=== PATIENT | female | born 1955 | race Caucasian/White ===

== ENCOUNTER 2024-06-15 14:11 | Outpatient (OUT) | payer MEDICARE, OTHER, SELFPAY ==
--- NOTE | 2024-06-15 14:19 | ECG_ITS ---
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
[2024-06-15 14:46] LABS: Basophils Percent Auto 0.4 % (0.2-2.0); Eosinophils Percent Auto 0.5 % (0.9-7.0); Hematocrit 45.8 % (36.0-48.0); Hemoglobin 14.9 g/dL (12.0-16.0); Immature Granulocytes Abs Auto 0.03 10^3/uL (0.00-0.03); Immature Granulocytes Pct Auto 0.4 % (0.0-0.5); Lymphocytes Absolute Auto 2.6 10^3/uL (1.2-3.8); Lymphocytes Percent Auto 32.4 % (20.5-60.0); Mean Corpuscular HGB Conc 32.5 g/dL (29.9-35.2); Mean Corpuscular Hemoglobin 29.3 pg (26.7-34.0); Mean Corpuscular Volume 90.2 fL (81.0-99.0); Mean Platelet Volume 9.4 fL (9.5-13.5); Monocytes Absolute Auto 0.6 10^3/uL (0.3-0.8); Monocytes Percent Auto 7.2 % (1.7-12.0); Neutrophils Absolute Auto 4.7 10^3/uL (1.4-6.5); Neutrophils Percent Auto 59.1 % (43.0-75.0); Platelet Count 294 10^3/uL (150-450); Red Blood Count 5.08 10^6/uL (4.20-5.40); Red Cell Distribution Width 13.5 % (11.0-15.0); White Blood Count 7.9 10^3/uL (4.0-11.0)
[2024-06-15 14:58] LABS: Anion Gap 14.5; Calcium 9.2 mg/dL (8.5-10.1); Carbon Dioxide 26.6 mmol/L (21.0-32.0); Chloride 104 mmol/L (98-107); Estimated GFR (African America >60 (>=60 mL/min/1.73m^2); Estimated GFR (Non-African Ame >60 (>=60 mL/min/1.73m^2); Glucose 96 mg/dL (74-106); Potassium 4.1 mmol/L (3.5-5.1); Sodium 141 mmol/L (136-145)
[2024-06-15 15:02] LABS: INR 0.98; Partial Thromboplastin Time 34.4 sec (22.3-36.2); Prothrombin Time 10.4 sec (9.0-11.6)
== END 2024-06-15 14:12 | disposition home or self-care (01) ==
LOC: PST 14:16
PROVIDERS: PCP Family Medicine; Visit Provider Urology
DX: Z01.810 Encounter for preprocedural cardiovascular examination (principal); Z01.812 Encounter for preprocedural laboratory examination; N20.0 Calculus of kidney
CPT/HCPCS: 80048; 85025; 85610; 85730; 93005

== ENCOUNTER 2024-06-16 11:29 | Day surgery (SDC) | payer MEDICARE, OTHER, SELFPAY ==
[2024-06-15 14:34] VITALS: BP 151/84; PULSE 73; TEMP 36.4; O2SAT 96; BMI 33.3
[2024-06-16] VITALS (10 sets, daily range): BP systolic 122–166; BP diastolic 68–91; PULSE 77–90; TEMP 36.2; O2SAT 90–97; BMI 33.1
--- NOTE | 2024-06-16 | FL_ITS ---
[address] [address] Patient Name: ARELY BEY MRN: [id number] date: 1955 Sex: F Assigned Patient Location: SURGOUT Current Patient Location: Accession/Order Number: [id number] Exam Date: 06/16/2024 13:00 Report Date: 06/20/2024 14:39 At the request of: DEBRA BROWN Procedure: FL fluoroscopy <1hr NON-READ EXAM: FL fluoroscopy <1hr NON-READ HISTORY: TECHNIQUE: FINDINGS: Please see Operative Report. Electronically authenticated by: RADIOLOGIST NO Date: 06/20/2024 14:39
[2024-06-16] MEDS: 0.9 % SODIUM CHLORIDE 500 ML 50 ML IV (12:05)
[2024-06-16] MEDS: CEFAZOLIN SODIUM 2 GM/50 ML D5W PREMIX IV (12:58)
--- NOTE | 2024-06-16 14:06 | PM.URSON ---
Urology Surgery Operative Note Operative Note Procedure Date: 06/16/24 Time Out Performed: yes Pre-op Diagnosis: Left renal calculus Post-op Diagnosis: same as pre-op Procedures performed: 1. Cystoscopy. 2. Left ureteroscopy. 3. Left pyeloscopy. 4. Thulium laser lithotripsy of extremely hard large left renal pelvis stone 5. Placement of 6 [place] variable length left ureteral stent Anesthesia: General-LMA Primary Surgeon: Ron Bell Complications: None Estimated blood loss (mL): 5 Findings: Extremely hard large left renal pelvis calculus Specimens: None Drains: 6 [place] variable length left ureteral stent Indications for Procedures: This lady has a large left renal pelvis stone which has been causing obstruction and pain. She now presents for cystoscopy left stent placement and possible definitive ureteroscopic laser lithotripsy. She has signed an informed consent after all risks were explained. Detailed description of Procedure: The patient was brought to the operating room and placed on the operating room table in the supine position. SCDs were placed on the lower extremities and turned on and functioning during the entire case. Timeout was done by all parties in the room. We all agreed upon the patient's identification and the planned procedures for this patient. Genn. anesthesia was then administered. The patient was then repositioned into the modified dorsal lithotomy position. All pressure points were satisfactorily padded. Genitalia were sterilely prepped and draped in usual fashion. I started by passing a 22 [place] Olympus cystoscope per urethra and into the bladder. The urethra was extremely stenosed. It was difficult to get the scope in. Careful panendoscopy in the bladder revealed no evidence of any tumors or stones. I then passed a Glidewire through the scope and up the left ureter into the kidney. The wire was beyond the stone. I then remove the scope and then passed a 10/12 ureteral access sheath over the wire up the ureter to L5. I then removed the access stylette and wire. I then passed a flexible ureteroscope through the access sheath and up the ureter. I then entered the renal pelvis and encountered this large stone. A 270 Angstrom laser fiber was passed through the scope and made contact with the stone. I began doing laser lithotripsy with the thulium laser at 6 W continuously then up to 10 W then 15 W. It was on the dusting mode. It began to fragment very slowly. This was an extremely hard stone. I continued dusting until the majority of the stone was dusted. I had to go into one of the midpole calyces to where a chunk fell. This was also dusted. Upon completion, this large hard stone was totally dusted. The scope was then removed. I then passed a Glidewire through the sheath into the kidney and removed the access sheath. Cystoscope was passed over the wire into the bladder and a 6 [place] variable length stent was passed over the wire up to the kidney. The wire was removed and there were good curls in the kidney and in the bladder. The bladder was drained of its contents and the scope was then removed. She was then transferred to a [facility] bed and wheeled to PACU in stable condition.
[2024-06-16] MEDS: SOLIFENACIN SUCCINATE 10 MG TABLET PO (15:03)
== END 2024-06-16 15:45 | disposition home or self-care (01) ==
PROVIDERS: PCP Family Medicine; Visit Provider Urology
PROC: (CPT 52356; principal; 2024-06-16 13:05)
DX: N20.0 Calculus of kidney (principal); R10.9 Unspecified abdominal pain; R35.1 Nocturia; R32 Unspecified urinary incontinence; Z87.891 Personal history of nicotine dependence; R82.994 Hypercalciuria; R82.90 Unspecified abnormal findings in urine; R31.9 Hematuria, unspecified
CPT/HCPCS: 52356; 36415; 76000; J0690; J1100; J1171; J2250; J2405; J2704; J3010

== ENCOUNTER 2024-06-18 14:38 | Emergency (ER) | payer MEDICARE, OTHER, SELFPAY ==
--- OUTSIDE RECORDS SUMMARY | 2024-06-18 14:57 | XMS_ITS | CCD ---
Author Organization [facility] Care Team Providers Care Senior Materials Analyst Name Role Phone Renetta Maradiaga Primary Care Provider RENETTA MARADIAGA Primary Care Unavailable PITO GROVES Attending Unavailab le PITO GROVES Admitting Unavailab Renetta Walton Primary Care Provider TENNILLE DICKSON Referring Unavailable PITO GROVES Attending Unavailab RENETTA Walton Primary Care Unavailable PITO GROVES Attending Unavailab RENETTA Walton Primary Care Unavailable PITO GROVES Attending Unavailab RENETTA Walton Primary Care Unavailable RENETTA MARADIAGA Primary Care Unavailable PITO GROVES Referring Unavailab RENETTA Walton Primary Care Unavailable Sarah Rivera Attending Unavailable Debra BELL Attending Unavailable Debra BELL Attending Unavailable Yaya CAMERON Primary Care Physician [phone] JULIANN Maradiaga Primary Care Provider MD Debra Bell Attending Provider [phone] Debra Bell Attending Unavailable Debra Bell Admitting Unavailable Renetta Maradiaga Primary Care Unavailable Debra Bell Admitting Unavailable Renetta Maradiaga Primary Care Unavailable Debra Bell Attending Unavailable Debra Bell Admitting Unavailable Debra Bell Attending Unavailable Renetta Maradiaga Primary Care Unavailable Renetta Maradiaga Primary Care Unavailable Don Johnson Attending Unavailable Don Johnson Admitting Unavailable Shelia Cameron DO Primary Care Provider Shelia Cameron DO Unavailable RENETTA MARADIAGA Attending Unavailable SHELIA CAMERON Referring Unavailable TENNILLE DICKSON Attending Unavailable TENNILLE DICKSON Referring Unavailable TENNILLE DICKSON Referring Unavailable DEBRA BELL Referring Unavailable SHELIA CAMERON Attending Unavailable SHELIA CAMERON Referring Unavailable SHELIA CAMERON Referring Unavailable Debra BELL Attending Unavailable STEPHANIE, Debra Banerjee Attending Unavailable BELL, Debra Banerjee Attending Unavailable BELL, Debra Banerjee Attending Unavailable Sarah Rivera Attending Unavailable BELL, Debra Banerjee Attending Unavailable BELL, Debra Banerjee Attending Unavailable Allergies Allergy Classification Reported Allergen(s) Allergy Type Date of Onset Reaction(s) Facility (1 source) No Known Medication Allergies; Translations: [No Known Medication Allergies] Propensity to adverse reactions (disorder) [facility] Repository Medications Current Medications Medication Drug Class(es) Dates Sig (Normalized) Sig (Original) atorvastatin 20 mg oral tablet (2 sources) HMG-CoA Reductase Inhibitor Start: 05-31-2018 take 20 mg by mouth once daily Atorvastatin Active 20 MG PO Daily May 31, 2018 12:00am cephalexin 500 mg oral capsule (2 sources) Cephalosporin Antibacterial Start: 10-31-2023 take 500 mg by mouth twice daily Cephalexin Active 500 MG PO Twice daily 14 October 31, 2023 1:00am dicyclomine hydrochloride 20 mg oral tablet (3 sources) Anticholinergic Start: 06-03-2024 take 1 tablet by mouth four times daily as needed dicyclomine (Bentyl) 20 MG tablet Indications: Abdominal discomfort Take 1 tablet (20 mg) by mouth 4 (four) times a day as needed (abdominal discomfort or cramps) 40 tablet 1 06/03/2024 Active Start: 06-03-2024 take 1 tablet by tanner four times daily as needed dicyclomine (Bentyl) 20 MG tablet Indications: Abdominal discomfort Take 1 tablet (20 mg) by mouth 4 (four) times a day as needed (abdominal discomfort or cramps) 40 tablet 1 06/03/2024 Active docusate sodium 100 mg oral capsule (2 sources) Start: 01-30-2023 End: 03-01-2023 take 1 capsule by mouth twice daily docusate sodium (COLACE) 100 mg capsule Take 1 capsule by mouth twice daily. 60 capsule 0 01/30/2023 03/01/2023 Active Comment on above: Take 1 capsule by mo [facility] twice daily. famotidine 40 mg oral tablet (3 sources) Histamine-2 Receptor Antagonist Start: 06-03-2024 take 1 tablet by mouth once daily famotidine (Pepcid) 40 MG tablet Indications: Gastroesophageal Reflux Disease Take 1 tablet (40 mg) by mouth Daily 30 tablet 2 06/03/2024 Active Start: 06-03-2024 take 1 tablet by tanner th once daily famotidine (Pepcid) 40 MG tablet Indications: Gastroesophageal Reflux Disease Take 1 tablet (40 mg) by mouth Daily 30 tablet 2 06/03/2024 Active hydroCHLOROthiazide 12.5 mg oral capsule (2 sources) Thiazide Diuretic Start: 06-15-2024 End: 06-10-2025 take 1 capsule by mouth once daily hydrochlorothiazide 12.5 mg Cap 12.5 mg = 1 cap(s), Oral, Daily, X 30 day(s), # 30 cap(s), Refills(s) 11, Pharmacy: [id number], 170, cm, 06/15/24 10:44:00 EDT, Height/Length Dosing, 97, kg, 06/15/24 10:44:00 EDT, Weight Dosing Start Date: 06/15/24 Stop Date: 06/10/25 Status: Ordered Multi Vitamin+ (5 sources) Start: 03-09-2024 Multi Vitamin+ Refill(s) 0 Start Date: 03/09/24 Status: Ordered naproxen 500 mg oral tablet (2 sources) Nonsteroidal Anti-inflammator y Drug Start: 10-31-2023 take 1 tablet by mouth twice daily Naproxen (Naprosyn) 500 mg tablet Active 500 MG PO Twice daily 10 October 31, 2023 1:00am ondansetron 4 mg oral tablet (2 sources) Serotonin-3 Receptor Antagonist Start: 10-31-2023 take 4 mg by mouth every eight hours Ondansetron Hcl Active 4 MG PO Every 8 hours 12 01October 31, 2023 1:00am oxyCODONE hydrochloride 5 mg oral tablet (3 sources) Opioid Agonist Start: 10-31-2023 take 5 mg by mouth twice daily Oxycodone Active 5 MG PO Twice daily 10 October 31, 2023 Start: 01-30-2023 End: 02-04-2023 take 1 tablet by mouth every eight hours as needed for pain oxyCODONE IR (ROXICODONE) 5 mg immediate release tablet Indications: Postoperative state Take 1 tablet by mouth every 8 hours as needed for pain for up to 5 days. 10 tablet 0 01/30/2023 02/04/2023 Active Comment on above: Take 1 tablet by tanner th every 8 hours as needed for pain for up to 5 days. tamsulosin hydrochloride 0.4 mg oral capsule (2 sources) alpha-Adrenergic Ariana Start: 10-31-2023 take 1 capsule by mouth once daily Tamsulosin (Flomax) 0.4 mg capsule Active 0.4 MG PO Daily October 31, 2023 1:00am Completed/Discontinued Medications Medication Drug Class(es) Dates Sig (Normalized) Sig (Original) acetaminophen 500 mg oral tablet (3 sources) Start: 01-30-2023 take 2 tablets by mouth every six hours as needed acetaminophen (TYLENOL EXTRA STRENGTH) 500 mg tablet Take 2 tablets by mouth every 6 hours as needed for pain. 30 tablet 0 01/30/2023 Active Comment on above: Take 2 tablets by mo uth every 6 hours as needed for pain. ciprofloxacin 500 mg oral tablet (1 source) Quinolone Antimicrobial Start: 03-28-2024 take 1 tablet by mouth once daily Cipro 500 mg Tab 500 mg = 1 tab(s), Oral, Daily, Take 1 tablet the day before the procedure and 1 tablet after the procedure, # 2 tab(s), Refills(s) 0, Pharmacy: [id number], 170, cm, 03/09/24 10:41:00 EDT, Height/Length Dosing, 97, kg, 03/09/24 10:41:00 EDT, Weight Dosing Start Date: 03/28/24 Status: Ordered gabapentin 100 mg oral capsule (2 sources) Anti-epileptic Agent Start: 01-22-2018 End: 05-31-2018 take 100 mg by mouth three times daily Gabapentin Discontinued 100 MG PO Three times daily January 22, 2018 12:00am May 31, 2018 8:47am ibuprofen 600 mg oral tablet (3 sources) Nonsteroidal Anti-inflammatory Drug Start: 01-30-2023 take 1 tablet by mouth every eight hours as needed ibuprofen (MOTRIN) 600 mg tablet Take 1 tablet by mouth every 8 hours as needed for pain. 30 tablet 0 01/30/2023 Active Comment on above: Take 1 tablet by tanner th every 8 hours as needed for pain. MULTIVITAMIN ORAL (1 source) MULTIVITAMIN ORA L Take by mouth. 0 Active Comment on above: Take by mouth. polyethylene glycol 3350 [id number] mg / potassium chloride 2970 mg / sodium bicarbonate 6740 mg / sodium chloride 5860 mg / sodium sulfate 90426 mg powder for oral solution (1 source) Osmotic Laxative Start: 12-10-2022 GAVILYTE-G 236-22.74-6.74 -5.86 gram suspension DRINK 8OZ EVERY 15 MINUTES BY MOUTH AT 4PM THE DAY PRIOR TO COLONOSCOPY 0 12/10/2022 Active Comment on above: DRINK 8OZ EVERY 15 M INUTES BY MOUTH AT 4PM THE DAY PRIOR TO COLONOSCOPY psyllium husk (METAMUCIL ORAL) (1 source) psyllium husk (METAMUCIL ORAL) Take by mouth. 0 Active Comment on above: Take by mouth. Problems Active Problems Problem Classification Problem Date Documented Date Episodic/Chronic Abdominal pain (5 sources) Abdominal discomfort; Translations: [Unspecified abdominal pain] Onset: 06-15-2024 06-03-2024 Episodic Anxiety disorders (2 sources) Acute stress disorder; Translations: [Acute stress reaction] 06-03-2024 Chronic Calculus of urinary tract (20 sources) Kidney stone; Translations: [Calculus of kidney] Onset: 01-19-2023 01-19-2023 Episodic Diverticulosis and diverticulitis (6 sources) Diverticulitis 11-09-2023 Chronic Esophageal disorders (2 sources) Gastro-esophageal reflux disease with esophagitis; Translations: [Gastroesophageal reflux disease with esophagitis without hemorrhage] 06-03-2024 Chronic Genitourinary symptoms and ill-defined conditions (1 source) Mixed incontinence; Translations: [Mixed incontinence] Onset: 03-09-2024 Chronic Genitourinary symptoms and ill-defined conditions (10 sources) Microscopic hematuria; Translations: [Asymptomatic microscopic hematuria] Onset: 03-09-2024 Episodic Other diseases of bladder and urethra (1 source) Male urethral stricture; Translations: [Unspecified urethral stricture, male, unspecified site] Onset: 03-29-2024 Episodic Other diseases of bladder and urethra (6 sources) Urethral stricture; Translations: [Unspecified urethral stricture, male, unspecified site] Onset: 06-03-2024 03-29-2024 Episodic Other female genital disorders (7 sources) Atypical endometrial hyperplasia; 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]] Onset: 01-30-2023 01-30-2023 Chronic Other female genital disorders (2 sources) 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]; Translations: [Endometrial hyperplasia with atypia] Onset: 01-14-2023 Chronic Other female genital disorders (1 source) Endometrial hyperplasia; Translations: [Endometrial hyperplasia, unspecified] Chronic Other inflammatory condition of skin (4 sources) Psoriasis; Translations: [Psoriasis, unspecified] Onset: 06-03-2024 06-03-2024 Chronic Other nutritional; endocrine; and metabolic disorders (3 sources) Obesity; Translations: [Other obesity due to excess calories] Onset: 01-19-2023 01-19-2023 Chronic Other nutritional; endocrine; and metabolic disorders (1 source) Obesity caused by energy imbalance; Translations: [Other obesity due to excess calories] Onset: 01-19-2023 01-19-2023 Chronic Other screening for suspected conditions (not mental disorders or infectious disease) (2 sources) Hormone increase 06-15-2024 Episodic Prolapse of female genital organs (4 sources) Uterovaginal prolapse; Translations: [Uterovaginal prolapse, unspecified] Onset: 03-29-2024 Chronic Residual codes; unclassified (1 source) Other specified postprocedural states; Translations: [Postoperative state] Onset: 01-30-2023 Episodic Residual codes; unclassified (2 sources) Postoperative state; Translations: [Other specified postprocedural states] Episodic Screening and history of mental health and substance abuse codes (7 sources) H/O: Disorder; Translations: [Personal history of nicotine dependence] Onset: 03-29-2024 Episodic Unclassified (3 sources) Asymptomatic microscopic hematuria 03-29-2024 Past or Other Problems Problem Classification Problem Date Documented Da te Episodic/Chronic Mood disorders (4 sources) Mood disorders Onset: 12-02-2023 12-02-2023 Results Test Name Value Interpretation Reference Range Facility ALL CBC WITH AUTO DIFFon BASOPHILS ABSOLUTE AUTO 0 [facility] Basophils/100 WBC (Bld) 0.4 % 0.2 - 2.0 % [facility] Eosinophils/100 WBC (Bld) 0.5 % Low 0.9 - 7.0 % [facility] Erythrocyte distribution width (RBC) [Ratio] 13.5 % 11.0 - 15.0 % [facility] Hematocrit (Bld) [Volume fraction] 45.8 % 36.0 - 48.0 % [facility] Hemoglobin (Bld) [Mass/Vol] 14.9 g/dL 12.0 - 16.0 g/dL [facility] IMMATURE GRANULOCYTES ABS AUTO 0.03 [facility] Immature granulocytes/100 WBC (Bld) 0.4 % 0.0 - 0.5 % [facility] Interpretation and review of laboratory results Abnormal [facility] LYMPHOCYTES ABSOLUTE AUTO 2.6 [facility] Lymphocytes/100 WBC (Bld) 32.4 % 20.5 - 60.0 % [facility] MCH (RBC) [Entitic mass] 29.3 pg 26.7 - 34.0 pg [facility] MCHC (RBC) [Mass/Vol] 32.5 g/dL 29.9 - 35.2 g/dL [facility] MCV (RBC) [Entitic vol] 90.2 fL 81.0 - 99.0 fL [facility] MONOCYTES ABSOLUTE AUTO 0.6 [facility] Monocytes/100 WBC (Bld) 7.2 % 1.7 - 12.0 % [facility] NEUTROPHILS ABSOLUTE AUTO 4.7 [facility] Neutrophils/100 WBC (Bld) 59.1 % 43.0 - 75.0 % [facility] Platelet mean volume (Bld) [Entitic vol] 9.4 fL Low 9.5 - 13.5 fL [facility] TBH EO # 0 [facility]H PLT [address] [facility] RBC 5.08 [facility] TB WBC 7.9 [facility] Ambulatory Visit Summaryon 1 Ambulatory Visit Summary Ambulatory Visit Summary ARELY MANUEL :1955 Visit Date:06/15/2024 Ambulatory Visit Instructions Your Diagnosis Kidney stone Hypercalciuria Abnormal urinalysis Flank pain Your Care Team Attending Physician - STEPHANIE OLIVAS, Debra Banerjee Primary Care Physician - Yaya CAMERON DO This Is Your Medications List hydrochlorothiazide (hydrochlorothiazide 12.5 mg Cap) Contact prescribing physician if questions or concerns multivitamin (Multi Vitamin+) Procedures Performed Cystoscopy (03/29/2024), Colonoscopy, Hysterectomy. Discharge Vitals Heart Rate (Peripheral) 80 Respiratory Rate 16 Blood Pressure 142/88 Height 170 cm Height 67 in Weight 97 kg Weight 213.4 lb BMI 33.56 What to do next You Need to Schedule the Following Appointments Follow Up with STEPHANIE OLIVAS, ANABELLA Mata When: Where: [facility] [address] [place] [address]- Medications What How Much When Instructions New hydrochlorothiazide (hydrochlorothiazide 12.5 mg Cap) 1 Capsules By Mouth Every day Duration: 30 Days Refills: 11 Pickup at [facility] Unchanged multivitamin (Multi Vitamin+) Contact prescribing physician if questions or concerns Pharmacy Information [id number]: [address] [place] [phone] Allergies No Known Medication Allergies Problems Ongoing - Any problem that you are currently receiving treatment for. Abnormal urinalysis Asymptomatic microscopic hematuria Cystocele with prolapse Diverticulitis Elevated parathyroid hormone Flank pain Former smoker History of kidney stones Hypercalciuria Kidney stone Urethral stricture Patient Survey You may receive a survey via text or e-mail asking about your office visit. Please share your experience with us by completing your survey. We appreciate your feedback and thank you for choosing us for your care. Education Materials Dietary Guidelines to Help Prevent Kidney Stones Kidney stones are deposits of minerals and salts that form inside your kidneys. Your risk of developing kidney stones may be greater depending on your diet, your lifestyle, the medicines you take, and whether you have certain medical conditions. Most people can lower their risks of developing kidney stones by following these dietary guidelines. Your dietitian may give you more specific instructions depending on your overall health and the type of kidney stones you tend to develop. What are tips for following this plan? Reading food labels ? Choose foods with no salt added or low-salt labels. Limit your salt (sodium) intake to less than 1,500 mg a day. ? Choose foods with calcium for each meal and snack. Try to eat about 300 mg of calcium at each meal. Foods that contain 200?500 mg of calcium a serving include: ? 8 oz (237 mL) of milk, rjsfted-bfcwnavqhbfi-m airy milk, and calcium-fortifiedfruit juice. Calcium-fortified means that calcium has been added to these drinks. ? 8 oz (237 mL) of kefir, yogurt, and soy yogurt. ? 4 oz (114 g) of tofu. ? 1 oz (28 g) of cheese. ? 1 cup (150 g) of dried figs. ? 1 cup (91 g) of cooked broccoli. ? One 3 oz (85 g) can of sardines or mackerel. Most people need 1,000?1,500 mg of calcium a day. Talk to your dietitian about how much calcium is recommended for you. Shopping ? Buy plenty of fresh fruits and vegetables. Most people do not need to avoid fruits and vegetables, even if these foods contain nutrients that may contribute to kidney stones. ? When shopping for convenience foods, choose: ? Whole pieces of fruit. ? Pre-made salads with dressing on the side. ? Low-fat fruit and yogurt smoothies. ? Avoid buying frozen meals or prepared deli foods. These can be high in sodium. ? Look for foods with live cultures, such as yogurt and kefir. ? Choose high-fiber grains, such as whole-wheat breads, oat bran, and wheat cereals. Cooking ? Do not add salt to food when cooking. Place a salt shaker on the table and allow each person to add their own salt to taste. ? Use vegetable protein, such as beans, textured vegetable protein (TVP), or tofu, instead of meat in pasta, casseroles, and soups. Meal planning ? Eat less salt, if told by your dietitian. To do this: ? Avoid eating processed or pre-made food. ? Avoid eating fast food. ? Eat less animal protein, including cheese, meat, poultry, or fish, if told by your dietitian. To do this: ? Limit the number of times you have meat, poultry, fish, or cheese each week. Eat a diet free of meat at least 2 days a week. ? Eat only one serving each day of meat, poultry, fish, or seafood. ? When you prepare animal proteins, cut pieces into small portion sizes. For most meat and fish, one serving is about the size of the palm of your hand. ? Eat at least five servings of fresh fruits and veg (more content not included)... Normal [facility] Ambulatory Visit Summary Ambulatory Visit Summary ARELY MANUEL :1955 Visit Date:06/15/2024 Ambulatory Visit Instructions Your Diagnosis Kidney stone Hypercalciuria Abnormal urinalysis Flank pain Your Care Team Attending Physician - Debra BELL MD Primary Care Physician - Yaya CAMERON DO This Is Your Medications List Contact prescribing physician if questions or concerns multivitamin (Multi Vitamin+) Procedures Performed Cystoscopy (03/29/2024), Colonoscopy, Hysterectomy. Discharge Vitals Heart Rate (Peripheral) 80 Respiratory Rate 16 Blood Pressure 142/88 Height 170 cm Height 67 in Weight 97 kg Weight 213.4 lb BMI 33.56 What to do next You Need to Schedule the Following Appointments Follow Up with Debra BELL MD, URL When: Where: [facility] [address] [place] [address]- Medications What When Instructions Unchanged multivitamin (Multi Vitamin+) Contact prescribing physician if questions or concerns Allergies No Known Medication Allergies Problems Ongoing - Any problem that you are currently receiving treatment for. Abnormal urinalysis Asymptomatic microscopic hematuria Cystocele with prolapse Diverticulitis Elevated parathyroid hormone Flank pain Former smoker History of kidney stones Hypercalciuria Kidney stone Urethral stricture Patient Survey You may receive a survey via text or e-mail asking about your office visit. Please share your experience with us by completing your survey. We appreciate your feedback and thank you for choosing us for your care. Education Materials Dietary Guidelines to Help Prevent Kidney Stones Kidney stones are deposits of minerals and salts that form inside your kidneys. Your risk of developing kidney stones may be greater depending on your diet, your lifestyle, the medicines you take, and whether you have certain medical conditions. Most people can lower their risks of developing kidney stones by following these dietary guidelines. Your dietitian may give you more specific instructions depending on your overall health and the type of kidney stones you tend to develop. What are tips for following this plan? Reading food labels ? Choose foods with no salt added or low-salt labels. Limit your salt (sodium) intake to less than 1,500 mg a day. ? Choose foods with calcium for each meal and snack. Try to eat about 300 mg of calcium at each meal. Foods that contain 200?500 mg of calcium a serving include: ? 8 oz (237 mL) of milk, oaxwycs-pydjlgfojyju-r airy milk, and calcium-fortifiedfruit juice. Calcium-fortified means that calcium has been added to these drinks. ? 8 oz (237 mL) of kefir, yogurt, and soy yogurt. ? 4 oz (114 g) of tofu. ? 1 oz (28 g) of cheese. ? 1 cup (150 g) of dried figs. ? 1 cup (91 g) of cooked broccoli. ? One 3 oz (85 g) can of sardines or mackerel. Most people need 1,000?1,500 mg of calcium a day. Talk to your dietitian about how much calcium is recommended for you. Shopping ? Buy plenty of fresh fruits and vegetables. Most people do not need to avoid fruits and vegetables, even if these foods contain nutrients that may contribute to kidney stones. ? When shopping for convenience foods, choose: ? Whole pieces of fruit. ? Pre-made salads with dressing on the side. ? Low-fat fruit and yogurt smoothies. ? Avoid buying frozen meals or prepared deli foods. These can be high in sodium. ? Look for foods with live cultures, such as yogurt and kefir. ? Choose high-fiber grains, such as whole-wheat breads, oat bran, and wheat cereals. Cooking ? Do not add salt to food when cooking. Place a salt shaker on the table and allow each person to add their own salt to taste. ? Use vegetable protein, such as beans, textured vegetable protein (TVP), or tofu, instead of meat in pasta, casseroles, and soups. Meal planning ? Eat less salt, if told by your dietitian. To do this: ? Avoid eating processed or pre-made food. ? Avoid eating fast food. ? Eat less animal protein, including cheese, meat, poultry, or fish, if told by your dietitian. To do this: ? Limit the number of times you have meat, poultry, fish, or cheese each week. Eat a diet free of meat at least 2 days a week. ? Eat only one serving each day of meat, poultry, fish, or seafood. ? When you prepare animal proteins, cut pieces into small portion sizes. For most meat and fish, one serving is about the size of the palm of your hand. ? Eat at least five servings of fresh fruits and vegetables each day. To do this: ? Keep fruits and vegetables on hand for snacks. ? Eat one piece of fruit or a handful of berries with breakfast. ? Have a salad and fruit at lunch. ? Have two kinds of vegetables at dinner. ? You may be told to limit foods that are high in a substance called oxalate. These in (more content not included)... Normal [facility] Urology Office/Clinic Noteon 06-15-2024 Urology Office/Clinic Note Urology Office/Clinic Note Chief Complaint Follow up HPI Staff Follow up to [place] [place] Previous DX: asymptomatic microscopic hematuria, cystocele w/prolapse, HX of kidney stones, urethral stricture. Dysuria: denies pain or burning Incomplete bladder emptying: denies Hematuria: denies visible blood Frequency: moderate intermittent Urgency: denies Nocturia: 1x Stream: denies hesitancy, denies weak stream Leaking: yes Post void dripping: denies Wearing pads/ Depends: denies Urge incontinence: yes Stress incontinence: denies Incontinence without Sensory Awareness: denies Abdominal pain: lower abdomen pain Flank pain: bilateral flank pain Sexual complaints: denies History of Present Illness Tests reviewed: UA, met workup, CT I have reviewed the previous health record information and history for this patient from Dr. Bell. I have reviewed and verified the staff HPI to be accurate for this encounter. Review of Systems PHQ Score Initial Depression Screen Score: 0 SCORE ROS - Provider Constitutional: denies weight loss, denies hot flashes. Eyes: denies eye problems. Gastrointestinal: denies nausea, denies vomiting. Cardiovascular: denies chest pain or angina. Integumentary: no dryness Musculoskeletal: denies musculoskeletal symptoms. ENMT: denies otolaryngeal symptoms. Respiratory: no shortness of breath. Heme/Lymph: denies easy bleeding tendency, denies easy bruising tendency. Psychiatric: no confusion, no anxiety. Genitourinary: See HPI. Physical Exam Vitals & Measurements HR: 80(Peripheral) RR: 16 BP: 142/88 HT: 67 in HT: 170 cm WT: 97 kg WT: 213.4 lb BMI: 33.56 General Appearance: alert, no distress, well nourished, well developed female. Assessment/Plan 1. Kidney stone (N20.0: Calculus of kidney) CT AP w/o con 10/31/23 - 4 mm obstructing L ureteral stone. Additional 6 mm nonobstructing stone in the L kidney. R kidney is unremarkable. KUB 11/09/23 - L ureteral stone was not visualized, may have passed. Continued L renal 6 mm stone present. KUB 03/07/24 - unable to view image but impression reports no urinary tract calculi identified. CT AP wo con 06/09/24 - 10 x 6 mm stone L renal pelvis with mild prominence of the L renal pelvis wo dilation of the calyces. No other distinct urinary tract calculi. No R hydro. Reviewed imaging with pt. Discussed surgical intervention options including ESWL if visible on x-ray (less invasive, lower stone free rate) and ureteroscopy/laser litho with possible stent placement (more invasive, higher stone free rate). Risks and benefits of each discussed. Passed smaller stone in October. Discussed surgical intervention options including ESWL if visible on x-ray (less invasive, lower stone free rate) and ureteroscopy/laser litho with possible stent placement (more invasive, higher stone free rate). Risks and benefits of each discussed. Offered to add pt onto surgery schedule tomorrow for stent placement which will relieve her L sided pain. No F/S/C. Pt elects to proceed with stent placement. Will schedule L stent placement. The procedural risks, benefits, details, and treatment alternatives have been discussed with the patient. These include bleeding, infection, inability to break or retrieve all of the stone, injury to the ureter (the tube which connects the kidney to the bladder), injury to the kidney scarring of the ureter, and need for repeat procedures, among others. Full informed consent has been obtained. Will order General anesthesia. 2. Hypercalciuria (R82.994: Hypercalciuria) Metabolic workup 05/20/24 - Volume 500 cc. U24 Ca 337 H. PTH 112.3 H but serum Ca is wnl. Reviewed metabolic workup with pt. Recommended pt to increase fluid intake to ten to twelve 16 oz bottles a day, preferably water, clear pop, and sugar free lemonade. -Drastically increase fluid intake. -Start HCTZ 12.5 mg qd. SEs discussed. Rx sent to [facility]. -Electrolyte panel in one month after starting med (recall placed). -Repeat metabolic workup in 8-10 mos. 3. Abnormal urinalysis (R82.90: Unspecified abnormal findings in urine) UA shows large blood and small leuks. Likely from #1, will monitor for resolution after #1 is resolved. 4. Flank pain (R10.9: Unspecified abdominal pain) Bilateral. L sided pain attributed to stone in L renal pelvis (see #1). Follow-up With When Contact Information Debra BELL MD, [facility] [address], [place] [address]- Additional Instructions: schedule L stent placement Patient Education Dietary Guidelines to Help Prevent Kidney Stones I, Keerthi Duran, personally scribed for Dr. Bell on 06/15/2024 11:49:50. . Documentation recorded by the scribe, Keerthi Duran, accurately reflects the services(s) I performed and decisions made by me. Authenticated by Dr. Bell on 06/15/2024 11:55:19. (more content not included)... Normal [facility] Comment on above: Result Comment: Elec tronically Signed By: Debra BELL MD\.br\Date and Time Signed: 06/15/24 11:55 EDT\.br\Electronically Co-Signed By: Keerthi Duran\.br\Date and Time Co-Signed: 06/15/24 11:[address] ABDOMEN PELVIS WO IV CONT RASTon 06-09-2024 CT ABDOMEN PELVIS WO IV CONTRAST EXAMINATION: CT ABDOMEN PELVIS WO IV CONTRAST HISTORY: Hematuria. History of kidney stones. TECHNIQUE: Non-IV contrast imaging of the abdomen and pelvis was performed using standard technique, scanning from just above the dome of the diaphragm to the symphysis pubis. Unenhanced imaging is limited for the evaluation of some intra-abdominal and pelvic pathology. All CT scans at this facility use dose modulation, iterative reconstruction, and/or weight based dosing when appropriate to reduce radiation dose to as low as reasonably achievable. COMPARISON: CT 12/29/2022. RESULT: Abdomen / Pelvis: Liver: Diffuse hepatic steatosis. No suspicious liver lesion. Biliary: Gallbladder unremarkable. Pancreas: Unremarkable. Spleen: No splenomegaly. Adrenals: No mass. Kidneys: 10 x 6 mm calculus in the left renal pelvis with mild prominence of the left renal pelvis without dilation of the calyces (pelviectasis). No other distinct urinary tract calculi. No right hydronephrosis. No suspicious lesions of the unenhanced kidneys. GI Tract: Small hiatal hernia. No bowel dilation. Diverticulosis without evidence for acute diverticulitis. Appendix unremarkable. Lymph Nodes: No lymphadenopathy. Mesentery/peritoneum/r etroperitoneum: Mild ill-defined mesenteric stranding, chronic, and unchanged from prior. No loculated collection. Vasculature: Mild arterial atherosclerotic disease without aneurysm. Pelvis: No significant free fluid. Hysterectomy. Bladder decompressed. Bones/Soft Tissues: No acute osseous findings. Degenerative changes. Lower thorax: Unremarkable. IMPRESSION: 10 mm calculus left renal pelvis with pelviectasis. ELECTRONICALLY SIGNED BY: Tarik Vera MD Normal Not Available 24 Hr Urine Uric Acidon 05-02 Uric Acid, 24 Hr Urine 300.0 Normal 142.3-713.2 [facility] Comment on above: Order Comment: URINE VOLUME (MILLILTERS): 500 Result Comment: Perf ormed at: - [facility] [place] [id number] Library Historian: Kam Tierney PhD, Phone: [phone] Performed By: #### C UU, ADDONUAPLUS #### [address] Urine Uric Acid 60.0 mg/dL Normal Not Estab. [facility] Comment on above: Order Comment: URINE VOLUME (MILLILTERS): 500 Performed By: #### C UU, ADDONUAPLUS #### [address] 24 hour urine sodium measure ment (moles/time)Ordered By: Debra Bell on 05-20-2024 Sodium (24H U) [Moles/Time] 53 mmol/24 40-[address] [facility] [address] biopsyOrdered By: Debra Bell on 05-20-2024 CT biopsy 24 Hours [facility] Calcium, 24Hr Urineon 2023 Calcium, Urine 67.4 mg/dL Normal Not Estab. [facility] Comment on above: Order Comment: URINE VOLUME (MILLILTERS): 500 Result Comment: Resu lts confirmed on dilution. Performed By: #### C UU, ADDONUAPLUS #### [address] Calcium, Urine 24 Hr 337 High 0-320 [facility] Comment on above: Order Comment: URINE VOLUME (MILLILTERS): 500 Performed By: #### C UU, ADDONUAPLUS #### [address] Citric Acid, Urine, 24 Houro n 05-20-2024 Citric Acid, Urine 1434 mg/L Normal Undefined [facility] Comment on above: Order Comment: URINE VOLUME (MILLILTERS): 500 Result Comment: Re sults verified by repeat testing This test was developed and its performance characteristics determined by [facility]. It has not been cleared or approved by the Food and Drug Administration. Performed By: #### C UU, ADDONUAPLUS #### [address] Citric Acid, Urine, 24HR 717 Normal 320-1240 [facility] Comment on above: Order Comment: URINE VOLUME (MILLILTERS): 500 Result Comment: Perf ormed at: - [facility] [address] [id number] Library Historian: Ezekiel Mack MD, Phone: [phone] PERFORMED BY: [place] [address] PATHOLOGIST GARBAGE PICK UP WORKER OPAL RUSS M.D. Performed By: #### C UU, ADDONUAPLUS #### [address] John Time and Vol 24 hr uron 05-20-2024 Total Volume, Urine 500 Normal [facility] Comment on above: Order Comment: URINE COLLECTION TIME (HRS): 24 URINE VOLUME (MILLILTERS): 500 Result Comment: PERF ORMED BY: [place] [address] PATHOLOGIST GARBAGE PICK UP WORKER OPAL RUSS M.D. Performed By: #### C UU, ADDONUAPLUS #### [address] Urine Collection Time 24 Normal [facility] Comment on above: Order Comment: URINE COLLECTION TIME (HRS): 24 URINE VOLUME (MILLILTERS): 500 Performed By: #### C UU, ADDONUAPLUS #### [address] Creatinine [Mass/volume] in UrineOrdered By: Debra Bell on 05-20-2024 Creatinine (U) [Mass/Vol] 250.00 mg/dL [facility] Comment on above: No reference range e stablished Creatinine, 24 Hr Urineon Creatinine 24 Hour, Urine 1.25 g/24_hr Normal 0.80-1.89 [facility] Comment on above: Order Comment: URINE COLLECTION TIME (HRS): 24 URINE VOLUME (MILLILTERS): 500 Performed By: #### U RASHEED 24HRU, CITRIC UR, MAG 24HRU, PHOS 24HRU, U24 CA #### [facility] , #### CREA24, U24 NA, COL T V #### [place] [address] [place] Creatinine, Urine 250.00 mg/dL Normal [facility] Comment on above: Order Comment: URINE COLLECTION TIME (HRS): 24 URINE VOLUME (MILLILTERS): 500 Result Comment: No r eference range established Performed By: #### U RASHEED 24HRU, CITRIC UR, MAG 24HRU, PHOS 24HRU, U24 CA #### [facility] , #### CREA24, U24 NA, COL T V #### [place] [address] [place] Magnesium, Urine 24Hron 05-02 Magnesium, 24Hr Urine 104.0 Normal 12.0-293.0 [facility] Comment on above: Order Comment: URINE VOLUME (MILLILTERS): 500 Performed By: #### C UU, ADDONUAPLUS #### [place] [address] [place] Magnesium, Urine 20.8 mg/dL Normal Not Estab. [facility] Comment on above: Order Comment: URINE VOLUME (MILLILTERS): 500 Performed By: #### C UU, ADDONUAPLUS #### [facility] [address] [place] [address] No Panel InformationOrdered By: Debra Bell on 05-20-2024 Urine Creatinine 24 Hour 1.25 g/24 hr 0.80-1.89 [facility] Phosphorus, 24Hr Urineon Phosphorous, Urine 158.9 mg/dL Normal Not Estab. [facility] Comment on above: Order Comment: URINE VOLUME (MILLILTERS): 500 Performed By: #### C CrystalUKIARAONUAPLUS #### [address] Phosphorus, Urine 24Hr 795 Normal 261-1078 [facility] Comment on above: Order Comment: URINE VOLUME (MILLILTERS): 500 Performed By: #### C KIARA VARGASONUAPLUS #### [address] Sodium [Moles/volume] in Uri neOrdered By: Debra Bell on 05-20-2024 Sodium (U) [Moles/Vol] 106.0 mmol/L Normal [facility] Comment on above: No reference range e stablished Order Comment: URINE COLLECTION TIME (HRS): 24 URINE VOLUME (MILLILTERS): 500 Result Comment: No r eference range established Performed By: #### U RASHEED 24HRU, CITRIC UR, MAG 24HRU, PHOS 24HRU, U24 CA #### [facility] , #### CREA24, U24 NA, COL T V #### [facility] [address] [place] [address] [place] Sodium, 24 Hr Urineon 2023 Sodium 24 Hour Urine 53 Normal 40-220 [facility] Comment on above: Order Comment: URINE COLLECTION TIME (HRS): 24 URINE VOLUME (MILLILTERS): 500 Performed By: #### U RASHEED 24HRU, CITRIC UR, MAG 24HRU, PHOS 24HRU, U24 CA #### [facility] , #### CREA24, U24 NA, COL T V #### [facility] [address] [place] [address] Urine volume measurementOrde red By: Debra Bell on 05-20-2024 Specimen volume (U) 500 ml [facility] Calcium [Mass/volume] in Ser um or PlasmaOrdered By: Debra Bell on 05-16-2024 Calcium [Mass/Vol] 8.8 mg/dL Normal 8.6-10.3 [facility] Comment on above: Performed By: #### C UU, ADDONUAPLUS #### [facility] [address] [place] [address] Carbon dioxide, total [Moles /volume] in Serum or PlasmaOrdered By: Debra Bell on 05-16-2024 CO2 [Moles/Vol] 26.6 mmol/L Normal 21.0-31.0 [facility] Comment on above: Performed By: #### C UU, ADDONUAPLUS #### [facility] [address] [place] [address] Chloride [Moles/volume] in S july or PlasmaOrdered By: Debra Bell on 05-16-2024 Chloride [Moles/Vol] 106 mmol/L Normal 98-107 [facility] Comment on above: Performed By: #### C UU, ADDONUAPLUS #### [facility] [address] [place] [address] Creatinineon 05-16-2024 GFR/1.73 sq M.predicted MDRD (S/P/Bld) [Vol rate/Area] mL/min/{1.73_m2} Normal [facility] Comment on above: Performed By: #### C UU, ADDONUAPLUS #### [facility] [address] [place] [address] Creatinine [Mass/volume] in Serum or PlasmaOrdered By: Debra Bell on 05-16-2024 Creatinine [Mass/Vol] 0.79 mg/dL Normal 0.60-1.20 [facility] Comment on above: Performed By: #### C UU, ADDONUAPLUS #### [facility] [address] [place] [address] No Panel InformationOrdered By: Debra Bell on 05-16-2024 Estimated GFR (CKD-EPI) > 60.0 mL/Min [facility] Creatinine Clearance (Chem N/A [facility] Parathyrin.intact [Mass/volu me] in Serum or PlasmaOrdered By: Debra Bell on 05-16-2024 Parathyrin.intact [Mass/Vol] 112.3 pg/mL High [facility] Parathyroid Hormone Intacton 05-16-2024 Parathyroid Hormone Intact 112.3 pg/mL High [facility] Comment on above: Result Comment: PERF ORMED BY: [facility] [address] [place] [address] PATHOLOGIST GARBAGE PICK UP WORKER OPAL RUSS M.D. Performed By: #### B UN, PTH, CA, LYTES, URIC, CREAT ####[facility] [id number] Potassium [Moles/volume] in Serum or PlasmaOrdered By: Debra Bell on 05-16-2024 Potassium [Moles/Vol] 4.3 mmol/L Normal 3.5-5.1 [facility] Comment on above: Performed By: #### C UU ADDONUAPLUS #### [facility] [address] [place] [address] Serum or plasma anion gap de terminationOrdered By: Debra Bell on 05-16-2024 Anion gap [Moles/Vol] 10.7 mmol/L Normal 6.0-15.0 [facility] Comment on above: Performed By: #### C UU, ADDONUAPLUS #### [facility] [address] [place] [address] [place] Sodium [Moles/volume] in Ser um or PlasmaOrdered By: Debra Bell on 05-16-2024 Sodium [Moles/Vol] 139 mmol/L Normal 136-145 [facility] Comment on above: Performed By: #### C UU, ADDONUAPLUS #### [facility] [address] [place] [address] [place] Urate [Mass/volume] in Serum or PlasmaOrdered By: Debra Bell on 05-16-2024 Urate [Mass/Vol] 6.6 mg/dL Normal 2.3-6.6 [facility] Comment on above: Result Comment: PERF ORMED BY: [facility] [address] [place] [address] PATHOLOGIST GARBAGE PICK UP WORKER OPAL RUSS M.D. Performed By: #### B UN, PTH, CA, LYTES, URIC, CREAT ####[facility] [id number] Urea nitrogen [Mass/volume] in Serum or PlasmaOrdered By: Debra eBll on 05-16-2024 Urea nitrogen [Mass/Vol] 12 mg/dL Normal 7-25 [facility] Comment on above: Performed By: #### C UU, ADDONUAPLUS #### [facility] [address] Urology Office/Clinic Noteon 03-29-2024 Urology Office/Clinic Note Urology Office/Clinic Note Chief Complaint Pt is here for cystoscopy HPI Staff AG pt here for cysto due to AMH. Abx taken. Negative cytology 03/09/24. History of Present Illness Tests reviewed: reviewed I have reviewed the previous health record information and history for this patient from Dr. Bell. I have reviewed and verified the staff HPI to be accurate for this encounter. Review of Systems PHQ Score Initial Depression Screen Score: 0 SCORE ROS - Provider Constitutional: denies weight loss, denies hot flashes. Eyes: denies eye problems. Gastrointestinal: denies nausea, denies vomiting. Cardiovascular: denies chest pain or angina. Integumentary: no dryness Musculoskeletal: denies musculoskeletal symptoms. ENMT: denies otolaryngeal symptoms. Respiratory: no shortness of breath. Heme/Lymph: denies easy bleeding tendency, denies easy bruising tendency. Psychiatric: no confusion, no anxiety. Genitourinary: See HPI. Physical Exam Vitals & Measurements T: 37 ?C(Temporal Artery) HR: 71(Peripheral) RR: 16 BP: 125/84 HT: 67 in HT: 170 cm WT: 97 kg WT: 213.4 lb BMI: 33.56 General Appearance: alert , no acute distress, well nourished, well developed female. Genitourinary: bladder nonpalpable, no flank pain. Procedure Operative Information Anesthesia Type: Local Procedure: Local Cystoscopy Complications: None Surgical risks, benefits, details of the procedure have been explained to the patient. Full informed consent has been obtained. Intraoperative Information Prepped: Patient is brought back to the endoscopy suite. Patient is placed in modified dorso/lithotomy position. Patient prepped in the usual fashion with Betadine solution. 2% Xylocaine Jelly is placed per Urethra. After waiting several minutes, the Cystoscope is introduced. The Urethra is: Normal The Bladder: _ No tumors or stones, Trabeculated: Severe (3) The Ureteral orifices: Show efflux of clear urine Specimens Removed: None No BRAD, grade 1 bladder prolapse, no A.V. Removal: Cystoscope is removed. The patient tolerated it well. Postoperative Information Patient is discharged home with antibiotic coverage. Follow up arranged. Assessment/Plan Last seen by AG. 1. Asymptomatic microscopic hematuria (R31.21: Asymptomatic microscopic hematuria) CT AP wo con 10/31/23 - Neg for upper tract abnormalities (besides renal stones). UA 03/09/24 - small blood, trace leuks [1]. Cytology 03/09/24 neg. Pt had IO cysto today wo complications. Cysto neg today. Hematuria workup complete and neg for malignancy. 2. Former smoker (Z87.891: Personal history of nicotine dependence) history of smoking and quit about 6 years ago. 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 Pt denies family history of kidney or bladder cancer. [1] 3. Urethral stricture (N35.919: Unspecified urethral stricture, male, unspecified site) 10/26/17 cysto/UD - tight urethra dilated to 30 Fr, grade II cystocele [2]. Hx of. Did not require dilation today. 4. History of kidney stones (Z87.442: Personal history of urinary calculi) CT AP w/o con 10/31/23 - 4 mm obstructing L ureteral stone. Additional 6 mm nonobstructing stone in the L kidney. R kidney is unremarkable. KUB 11/09/23 - L ureteral stone was not visualized, may have passed. Continued L renal 6 mm stone present. KUB 03/07/24 - unable to view image but impression reports no urinary tract calculi identified. Discussed metabolic workup including 24 hour urine and blood work for stone prevention. Follow up 3 mos with metabolic workup with AG or sooner if needed. Pt understands and agrees with plan. -KUB due in 6 mos. 5. Cystocele with prolapse (N81.4: Uterovaginal prolapse, unspecified) Grade 1. See procedure section. Follow-up With When Contact Information Miguel CHILDERS, Sarah Pat, URL Additional Instructions: 3 mos with metabolic workup with AG Patient Education Hematuria, Adult I, Keerthi Duran, personally scribed for Dr. Bell on 03/29/2024 11:59:36. . Documentation recorded by the scribe, Keerthi Duran, accurately reflects the services(s) I performed and decisions made by me. Authenticated by Dr. Bell on 03/29/2024 12:05:38. Problem List/Past Medical History Ongoing Asymptomatic microscopic hematuria Cystocele with prolapse Diverticulitis Former smoker History of kidney stones Kidney stone Urethral stricture Historical No qualifying data Procedure/Surgical History Cystoscopy (03/29/2024), Colonoscopy, Hysterectomy. Medications Cipro 500 mg Tab, 500 mg= 1 tab(s), Oral, Daily Multi Vitamin+ Allergies No Known Medication Allergies Social History Tobacco Former smoker, quit more than 30 days ago Tobacco Use:. Never Smokeless Tobacco Use:. Cigarettes, 03/29/2024 Family History Heart disease: Father. Hypertension: Mother. Kidney stone: Mother and Father. Immunizat (more content not included)... Normal [facility] Comment on above: Result Comment: Elec tronically Signed By: Debra BELL MD\.br\Date and Time Signed: 03/29/24 12:05 EDT\.br\Electronically Co-Signed By: Keerthi Duran\.br\Date and Time Co-Signed: 03/29/24 12:00 EDT Urine Cytology ([facility])on 0 03-16-2024 Microscopic exam Cytology (U) [Interp] Diagnosis Info Invalid Interpretation Code [facility] Comment on above: Result Comment: A:Ur ine,Clean Catch:Voided Interpretation - Adequate cellularity for evaluation. MicroScopic Description - Adequacy - Adequate Gross Description Site ID:A color Yellow fixative Alcohol Specimen designated Clean Catch received in alcohol preservative and labeled with the patient?s name, consists of 40ml slightly cloudy yellow fluid. Electronically signed by : on: 03/16/2024 17:43:25 Performed By: #### 1 [id number] #### [facility] [address] [place] [address] Urine Cytology ([facility])on 03-09-2024 Method of Extraction Voided Normal F [facility] Comment on above: Performed By: #### 1 [id number] #### [facility] [address] [place] [address] Number of Jars 1 Invalid Interpretation Code [facility] Comment on above: Performed By: #### 1 [id number] #### [facility] [address] [place] [id number] UC Specimen Clean Catch Normal [facility] Comment on above: Performed By: #### 1 [id number] #### [facility] [address] [place] [address] Type of Service Technical Only Normal Fi [facility] Comment on above: Performed By: #### 1 [id number] #### [facility] [address] [place] [address] XR ABDOMEN 1 VIEWon 03-07-20 24 XR ABDOMEN 1 VIEW EXAMINATION: XR ABDOMEN 1 VIEW HISTORY: Kidney Stones TECHNIQUE: Frontal view of the abdomen and pelvis obtained COMPARISON: CT abdomen pelvis December 29, 2022 FINDINGS: No calcifications identified over the bilateral renal shadows or expected course of the ureters. Nonobstructive bowel gas pattern. No evidence of free air. No acute osseous abnormality. IMPRESSION: No urinary tract calculi identified by radiography. ELECTRONICALLY SIGNED BY: Loyd Harrington DO Normal Not Available BI MAMMOGRAM SCREENING TOMOS YNTHESIS BILATERALon 02-05-2024 BI MAMMOGRAM SCREENING TOMOSYNTHESIS BILATERAL This is a summary report. The complete report is available in the patient's medical record. If you cannot access the medical record, please contact the sending organization for a detailed fax or copy. EXAMINATION: BI MAMMOGRAM SCREENING TOMOSYNTHESIS BILATERAL CLINICAL HISTORY:screening COMPARISON: December 10, 2022. RESULT: Density: Almost entirely fatty [1] Stable nodular dense tissue left central breast CC projection. Right central upper outer breast biopsy clip. There is no suspicious mass, asymmetry, architectural distortion, or calcification No significant axillary lymphadenopathy. IMPRESSION: BIRADS 2 - Benign Follow-up: Routine Screening Mamm Board Certified Radiologists. Accredited by the ACR and FDA. MAMMOGRAPHY IS VERY IMPORTANT TO YOUR HEALTH. THE [employer] GUIDELINES RECOMMEND THAT WOMEN 40 YEARS OF AGE AND OLDER SHOULD HAVE A MAMMOGRAM EVERY YEAR. A REMINDER LETTER WILL BE SENT AT THE APPROPRIATE TIME. THIS FACILITY UTILIZES A REMINDER SYSTEM TO ENSURE ALL PATIENTS RECEIVE REMINDER NOTIFICATIONS AT THE APPROPRIATE TIME BASED ON THE RECOMMENDATIONS OF THIS EXAM. THIS INCLUDES REMINDERS FOR ROUTINE SCREENING MAMMOGRAMS, DIAGNOSTIC MAMMOGRAMS IN WHICH THE PATIENT IS ASKED TO RETURN FOR ADDITIONAL VIEWS, OR OTHER BREAST IMAGING INTERVENTIONS WHEN APPROPRIATE. THE PATIENT WILL BE PLACED IN THE APPROPRIATE REMINDER SYSTEM INCLUDING A REMINDER AT THE APPROPRIATE TIME FOR ANY PENDING ADDITIONAL VIEWS. TRANSCRIBED BY: ELECTRONICALLY SIGNED BY: Christo Latham MD Normal Not Available Comment on above: Order Comment: Spot compression and us prn RAD - MISCon 11-10-2023 RAD - MISC [id number] 0TIFF Normal [facility] XR KUBon 11-09-2023 XR KUB [facility] [place] [address] XRay Report Signed Patient: Arely Manuel MR#: [id number] : 1955 Acct:[id number] Age/Sex: 68 / F ADM Date: 11/09/23 Loc: XD Room: Type: [facility] Attending Dr: Debra Bell MD Copies to: Debra Bell MD Ordering Provider: Debra Bell MD Date of Service: 11/09/23 XR/XR KUB: N20.1 KUB: CLINICAL INFORMATION: Left ureteral stone follow-up. COMPARISON: CT abdomen and pelvis 10/31/2023 FINDINGS: Left nephrolithiasis with a stone measuring 6 mm. The patient's distal left ureteral stone is not visualized on today's study. No bowel obstruction or free air. XR/XR KUB IMPRESSION: THE PATIENT'S KNOWN DISTAL LEFT URETERAL STONE IS NOT SEEN ON TODAY'S STUDY AND MAY HAVE PASSED. LEFT NEPHROLITHIASIS. Impression dictated by: Christo Cotter Jr., D.O.11/09/2023 4:18 PM Dictation Location: [place] [address] Transcribed By: [facility] 11/09/231617 Dictated By: Christo Cotter Jr, DO 11/09/231616 Signed By: 11/09/231617 Normal [facility] Basic Metabolic Panelon Anion gap [Moles/Vol] 12.6 mmol/L Normal 6.0-15.0 Th e [facility] Comment on above: Performed By: #### B MP, CBC, LIPASE, HEPATIC #### [facility] [address] Calcium [Mass/Vol] 9.5 mg/dL Normal 8.6-10.3 [facility] Comment on above: Performed By: #### B MP, CBC, LIPASE, HEPATIC #### [facility] [address] [place] [id number] [place] Chloride [Moles/Vol] 106 mmol/L Normal 98-107 [facility] Comment on above: Performed By: #### B MP, CBC, LIPASE, HEPATIC #### [facility] [address] [place] [address] [place] CO2 [Moles/Vol] 23.2 mmol/L Normal 21.0-31.0 [facility] Comment on above: Performed By: #### B MP, CBC, LIPASE, HEPATIC #### [facility] [address] [place] [id number] [place] Creatinine [Mass/Vol] 0.82 mg/dL Normal 0.60-1.20 [facility] Comment on above: Performed By: #### B MP, CBC, LIPASE, HEPATIC #### [facility] [address] [place] [phone] [place] Creatinine Clr Calc Pharmacy 82.16 Normal [facility] Comment on above: Performed By: #### B MP, CBC, LIPASE, HEPATIC #### [facility] [address] [place] [address] GFR/1.73 sq M.predicted MDRD (S/P/Bld) [Vol rate/Area] mL/min/{1.73_m2} Normal [facility] Comment on above: Performed By: #### B MP, CBC, LIPASE, HEPATIC #### [address] Glucose [Mass/Vol] 125 mg/dL High 70-100 [facility] Comment on above: Result Comment: [facility] Glucose Reference Range is dependent on time and content of last meal. Glucose of more than 200 mg/dL in a nonstressed, ambulatory subject supports the diagnosis of Diabetes Mellitus. ADA recommended reference range Performed By: #### B MP, CBC, LIPASE, HEPATIC #### [address] Potassium [Moles/Vol] 3.8 mmol/L Normal 3.5-5.1 [facility] Comment on above: Performed By: #### B MP, CBC, LIPASE, HEPATIC #### [address] Sodium [Moles/Vol] 138 mmol/L Normal 136-145 [facility] Comment on above: Performed By: #### B MP, CBC, LIPASE, HEPATIC #### [address] Urea nitrogen [Mass/Vol] 16 mg/dL Normal 7-25 [facility] Comment on above: Performed By: #### B MP, CBC, LIPASE, HEPATIC #### [address] abdomen pelvis wo conon 0 10-31-2023 CT abdomen pelvis wo con [facility] [place] [address] CT Scan Report Signed with Ruthann Patient: Arely Manuel MR#: [id number] : 1955 Acct:[id number] Age/Sex: 68 / F ADM Date: 10/30/23 Loc: ER Room: Type: [facility] Attending Dr: Copies to: Don Johnson DO Ordering Provider: Don Johnson DO Date of Service: 10/31/23 CT/CT abdomen pelvis wo con: r/o L obstructing kidney stone ADDENDUM 1 In addition to the impression below, there is mild haziness involving the mesentery. Repeat CT in 6 months is recommended to confirm stability. Impression dictated by: Christo Cotter Jr. D.OEvy10/31/2023 9:31 AM Dictation Location: [facility]-15 Addendum Dictated By: Christo Cotter Jr, DO Addendum Signed By: 10/31/23930 Addendum Cosigned By: DD/ /24/930 TD/TT: 10/31/2310/24/930 CT ABDOMEN AND PELVIS WITHOUT INTRAVENOUS CONTRAST: CLINICAL HISTORY: Left flank pain, constipation, urinary frequency nausea and vomiting fever chills. COMPARISON: None TECHNIQUE: Spiral images were obtained through the abdomen and pelvis without intravenous contrast. This CT exam was performed using one or more following dose reduction techniques: Automated exposure control, adjustment of the mA and/or kV according to patient size, or use of iterative reconstruction technique. FINDINGS: Lung Bases: [Mild basilar scarring.] Organs:Suboptimal evaluation due to lack of IV contrast. Hepatic steatosis. Gallbladder spleen pancreas and right adrenal gland appear unremarkable. Mild adenomatous thickening left adrenal gland. Obstructing calculus involving the left ureter at the level of the pelvic brim measuring 4 mm series 3 image 132. Additional nonobstructing calculus left kidney measuring 6 mm. Right kidney appears unremarkable. Abdominal aorta appears normal in caliber.[ GI: Small hiatal hernia. Distal stomach is grossly unremarkable. Small bowel appears nondilated. Colonic diverticulosis. Appendix is normal.[ Pelvis:[Urinary bladder is grossly unremarkable. Uterus has been removed. No adnexal mass.] Peritoneum/Retroperito neum:No free air or free fluid. Mild haziness involving the mesentery without lymphadenopathy.[ Abd wall/Bones:Abdominal wall demonstrate no acute findings. Osseous structures demonstrate degenerative change.[ CT/CT abdomen pelvis wo con IMPRESSION: 4 mm obstructing left ureteral calculus. Left nephrolithiasis. Small hiatal hernia. Colonic diverticulosis. Hepatic steatosis. Impression dictated by: Christo Cotter Jr., D.O.10/31/2023 9:28 AM Dictation Location: [place] [address] Transcribed By: [facility] 10/31/23927 Dictated By: Christo Cotter Jr, DO 10/31/23924 Signed By: 10/31/23927 Normal [facility] Complete Blood Count Auto Di ffon 10-31-2023 Basophils (Bld) [#/Vol] 0.0 10*3/uL Normal 0.0-0.2 [facility] Comment on above: Result Comment: PERF ORMED BY: [place] [address] PATHOLOGIST [employer] PICK UP WORKER OPAL RUSS M.D. Performed By: #### B MP, CBC, LIPASE, HEPATIC #### [address] Basophils/100 WBC (Bld) 0.3 % Normal . T [facility] Comment on above: Performed By: #### B MP, CBC, LIPASE, HEPATIC #### [address] Eosinophils (Bld) [#/Vol] 0.0 10*3/uL Normal 0.0-0.45 [facility] Comment on above: Performed By: #### B MP, CBC, LIPASE, HEPATIC #### [address] Eosinophils/100 WBC (Bld) 0.1 % Normal . [facility] Comment on above: Performed By: #### B MP, CBC, LIPASE, HEPATIC #### [address] Erythrocyte distribution width (RBC) [Ratio] 14.0 % Normal 11.9-15.3 [facility] Comment on above: Performed By: #### B MP, CBC, LIPASE, HEPATIC #### [address] Hematocrit (Bld) [Volume fraction] 42.4 % Normal 34.0-46.4 [facility] Comment on above: Performed By: #### B MP, CBC, LIPASE, HEPATIC #### [address] Hemoglobin (Bld) [Mass/Vol] 14.2 g/dL Normal 11.8-15.4 [facility] Comment on above: Performed By: #### B MP, CBC, LIPASE, HEPATIC #### [address] Lymphocytes (Bld) [#/Vol] 1.4 10*3/uL Normal 1.00-4.8 [facility] Comment on above: Performed By: #### B MP, CBC, LIPASE, HEPATIC #### [address] Lymphocytes/100 WBC (Bld) 11.6 % Normal . [facility] Comment on above: Performed By: #### B MP, CBC, LIPASE, HEPATIC #### [address] MCH (RBC) [Entitic mass] 29.2 pg Normal 24.7-34.3 [facility] Comment on above: Performed By: #### B MP, CBC, LIPASE, HEPATIC #### [address] MCV (RBC) [Entitic vol] 87.1 fL Normal 80-100 T [facility] Comment on above: Performed By: #### B MP, CBC, LIPASE, HEPATIC #### [address] Mean Corpuscular HGB Conc 33.5 g/dL Normal 32.0-35.0 [facility] Comment on above: Performed By: #### B MP, CBC, LIPASE, HEPATIC #### [place] [address] [place] Monocytes (Bld) [#/Vol] 0.5 10*3/uL Normal 0.0-0.8 [facility] Comment on above: Performed By: #### B MP, CBC, LIPASE, HEPATIC #### [place] [address] [place] Monocytes/100 WBC (Bld) 16.99 % Normal 0.00-20.00 T [facility] Comment on above: Performed By: #### B MP, CBC, LIPASE, HEPATIC #### [address] Monocytes/100 WBC (Bld) 4.2 % Normal . [facility] Comment on above: Performed By: #### B MP, CBC, LIPASE, HEPATIC #### [address] Neutrophils (Bld) [#/Vol] 10.3 10*3/uL High 1.8-7.7 [facility] Comment on above: Performed By: #### B MP, CBC, LIPASE, HEPATIC #### [address] Neutrophils/100 WBC (Bld) 83.8 % Normal . [facility] Comment on above: Performed By: #### B MP, CBC, LIPASE, HEPATIC #### [address] NRBC% 0.1 /100{WBC} Normal 0-0.5 [facility] Comment on above: Performed By: #### B MP, CBC, LIPASE, HEPATIC #### [address] Platelet mean volume (Bld) [Entitic vol] 8.0 fL Normal 6.3-10.7 [facility] Comment on above: Performed By: #### B MP, CBC, LIPASE, HEPATIC #### [place] [address] [place] Platelets (Bld) [#/Vol] 310 10*3/uL Normal 150-450 [facility] Comment on above: Performed By: #### B MP, CBC, LIPASE, HEPATIC #### [place] [address] [place] RBC (Bld) [#/Vol] 4.87 10*6/uL Normal 3.60-5.00 [facility] Comment on above: Performed By: #### B MP, CBC, LIPASE, HEPATIC #### [place] [address] [place] WBC (Bld) [#/Vol] 12.3 10*3/uL High 3.8-11.6 [facility] Comment on above: Performed By: #### B MP, CBC, LIPASE, HEPATIC #### [place] [address] [place] Dipstick and Microscopicon 0 10-31-2023 Appearance (U) Cloudy Critically abnormal Clear [facility] Comment on above: Order Comment: Name Collection Type:: Clean-Voided Midstream Performed By: #### C UU, ADDONUAPLUS #### [address] Bacteria,Urine None Seen Normal None Seen [facility] Comment on above: Order Comment: Name Collection Type:: Clean-Voided Midstream Performed By: #### C UU, ADDONUAPLUS #### [place] [address] [place] Bilirubin,Urine Negative Normal Negative [facility] Comment on above: Order Comment: Name Collection Type:: Clean-Voided Midstream Performed By: #### C UU, ADDONUAPLUS #### [address] Color (U) Yellow Normal Yellow [facility] Comment on above: Order Comment: Name Collection Type:: Clean-Voided Midstream Performed By: #### C UU, ADDONUAPLUS #### [place] [address] [place] Glucose Ql (U) Normal Normal Normal [facility] Comment on above: Order Comment: Name Collection Type:: Clean-Voided Midstream Performed By: #### C UU, ADDONUAPLUS #### [place] [address] [place] Hyaline Casts,Urine 0-8 Normal 0-8 [facility] Comment on above: Order Comment: Name Collection Type:: Clean-Voided Midstream Result Comment: PERF ORMED BY: [place] [address] PATHOLOGIST GAR[employer] P[employer] UP WORKER OPAL RUSS M.D. Performed By: #### C UU, ADDONUAPLUS #### [address] Ketones Ql (U) 1+ High Negative [facility] Comment on above: Order Comment: Name Collection Type:: Clean-Voided Midstream Performed By: #### C UU, ADDONUAPLUS #### [address] Leukocyte esterase Test strip Ql (U) 3+ High Negative [facility] Comment on above: Order Comment: Name Collection Type:: Clean-Voided Midstream Performed By: #### C UU, ADDONUAPLUS #### [address] Nitrite,Urine Negative Normal Negative [facility] Comment on above: Order Comment: Name Collection Type:: Clean-Voided Midstream Performed By: #### C UU, ADDONUAPLUS #### [address] Occult Blood,Urine 3+ High Negative [facility] Comment on above: Order Comment: Name Collection Type:: Clean-Voided Midstream Result Comment: PERF ORMED BY: [place] [address] PATHOLOGIST GARB[employer] P[employer] UP WORKER OPAL RUSS M.D. Performed By: #### C UU, ADDONUAPLUS #### [address] pH (U) 6.0 [pH] Normal 5.0-9.0 [facility] Comment on above: Order Comment: Name Collection Type:: Clean-Voided Midstream Performed By: #### C UU, ADDONUAPLUS #### [address] Protein (U) [Mass/Vol] 100 mg/dL High Negative Th e [facility] Comment on above: Order Comment: Name Collection Type:: Clean-Voided Midstream Performed By: #### C UU, ADDONUAPLUS #### [place] [address] [place] RBC,Urine Innumerable High 0-4 [facility] Comment on above: Order Comment: Name Collection Type:: Clean-Voided Midstream Performed By: #### C UU, ADDONUAPLUS #### [address] Specificy [place],Urine 1.021 Normal 1.001-1.030 [facility] Comment on above: Order Comment: Name Collection Type:: Clean-Voided Midstream Performed By: #### C UU, ADDONUAPLUS #### [address] Squamous Epithelial Cell,Urine 5-9 High 0-2 [facility] Comment on above: Order Comment: Name Collection Type:: Clean-Voided Midstream Performed By: #### C UU, ADDONUAPLUS #### [address] Urobilinogen,Urine Normal Normal Normal [facility] Comment on above: Order Comment: Name Collection Type:: Clean-Voided Midstream Performed By: #### C UU, ADDONUAPLUS #### [address] WBC,Urine 20-49 High 0-4 [facility] Comment on above: Order Comment: Name Collection Type:: Clean-Voided Midstream Performed By: #### C UU, ADDONUAPLUS #### [address] Hepatic Panelon 10-31-2023 Albumin [Mass/Vol] 4.3 g/dL Normal 3.5-5.7 [facility] Comment on above: Performed By: #### B MP, CBC, LIPASE, HEPATIC #### [address] Albumin/Globulin [Mass ratio] 1.3 {ratio} Normal [facility] Comment on above: Performed By: #### B MP, CBC, LIPASE, HEPATIC #### [address] ALP [Catalytic activity/Vol] 67 U/L Normal 34-104 [facility] Comment on above: Performed By: #### B MP, CBC, LIPASE, HEPATIC #### [facility] [address] [place] [address] [place] ALT [Catalytic activity/Vol] 23 U/L Normal 7-52 [facility] Comment on above: Performed By: #### B MP, CBC, LIPASE, HEPATIC #### [facility] [address] [place] [address] [place] AST [Catalytic activity/Vol] 42 U/L High 13-39 [facility] Comment on above: Performed By: #### B MP, CBC, LIPASE, HEPATIC #### [facility] [address] Bilirubin [Mass/Vol] 1.0 mg/dL Normal 0.3-1.0 [facility] Comment on above: Performed By: #### B MP, CBC, LIPASE, HEPATIC #### [facility] [address] [place] [address] [place] Bilirubin,Indirect 0.9 mg/dL Normal [facility] Comment on above: Performed By: #### B MP, CBC, LIPASE, HEPATIC #### [facility] [address] [place] [address] [place] Bilirubin.indirect [Mass/Vol] 0.10 mg/dL Normal 0.03-0.18 [facility] Comment on above: Performed By: #### B MP, CBC, LIPASE, HEPATIC #### [facility] [address] [place] [address] [place] Globulin (S) [Mass/Vol] 3.2 g/dL Normal T [facility] Comment on above: Performed By: #### B MP, CBC, LIPASE, HEPATIC #### [facility] [address] [place] [address] [place] Protein [Mass/Vol] 7.5 g/dL Normal 6.4-8.9 [facility] Comment on above: Performed By: #### B MP, CBC, LIPASE, HEPATIC #### [facility] [address] [place] [id number] [place] Lipaseon 10-31-2023 Lipase [Catalytic activity/Vol] 21.0 U/L Normal 11.0-82.0 [facility] Comment on above: Result Comment: PERF ORMED BY: [place] [address] PATHOLOGIST GARB[employer] P[employer] UP WORKER OPAL RUSS M.D. Performed By: #### B MP, CBC, LIPASE, HEPATIC #### [facility] [address] [place], [place] [id number] [facility] Urine Cultureon 10-31-2023 Bacteria identified Cx Nom (U) ORGANISM: Strep agalactiae - (group b) (O:STRAGA) [place] Count >100,000 PERFORMED BY: [place] [address] PATHOLOGIST GARBAGE PICK UP WORKER OPAL RUSS M.D. Normal [facility] Comment on above: Performed By: #### C UU, ADDONUAPLUS #### [place] [id number] [facility] CNOVSPon 03-11-2023 CNOVSP Visit (SP) Office (GYNOSA) ARELY MANUEL ([id number]) 1955 F Date Time Provider Department 03/11/23 10:30 AM PITO GROVES During your visit today, we recorded the following information about you: Temperature Pulse Respiration Blood pressure 97.6 degrees 76/minute 18/minute 155/77 Weight 101.2 kg Pito Groves MD 03/11/2023 11:00 AM Signed DATE OF SERVICE: 03/11/2023 REASON FOR VISIT: Endometrial hyperplasia with atypia, post op follow up DIAGNOSIS: Endometrial hyperplasia with atypia HISTORY OF PRESENT ILLNESS: Arely Manuel is a 67 year old female with pmh significant for fibromyalgia and psoriasis 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 Previous biopsy in 2019 showed endometrial hyperplasia without atypia. Biopsy completed on 12/25/22 did demonstrate endometrial hyperplasia with atypia. Arely presents to local truck driver onc for further evaluation/hysterectom y discussion. 01/30/2023 Surgery: Total laparoscopic hysterectomy with bilateral salpingo-oophorectomy for uterus <250g DATE OF LAST VISIT: 01/14/2023 OBSTETRIC/ GYNECOLOGY HISTORY: Gynecologic surgery: None Last Pap: 10/3022 PAST MEDICAL HISTORY Diagnosis Date Endometrial hyperplasia IUD [id number] Fibromyalgia PAST SURGICAL HISTORY Procedure Laterality Date ABDOMINOPLASTY N/A HYSTEROSCOPY BX W/WO DANDC PT ED PLASTIC SURGERY Bilateral breast- no implant Family History Problem Relation Age of Onset Anesthesia Problems No Family History RECENT PATHOLOGY 01/30/2023 FINAL DIAGNOSIS A. Uterus, cervix, bilateral fallopian tubes and bilateral ovaries, hysterectomy and bilateral salpingo-oophorectomy: -Cervix: Nabothian cysts -Endometrium: Focal atypical hyperplasia, see comment -Myometrium: Leiomyomata and adenomyosis -Bilateral fallopian tubes: Paratubal cysts -Bilateral ovaries: Epithelial inclusion cysts, and endometriosis in right ovary 12/25/22 RECENT IMAGING: Date: Pelvic US 12/10/22 Date: CT A/P 12/29/22 Subjective: Patient feeling well post op - denies pain or bleeding, improved constipation, denies urinary issues. Having some intermittent RUQ pain - recently had CT from PCP which was negative for gallbladder issues and showed small kidney stone. Objective: BP 155/77 Pulse 76 Temp 36.4 ?C (97.6 ?F) (Temporal) Resp 18 Wt 101.2 kg (223 lb 3.2 oz) SpO2 98% BMI 34.95 kg/m? Abdomen soft NTND ASSESSMENT: 67 year old y/o female presenting with endometrial hyperplasia with atypia now s/p TLH, BSO on 01/30/23- patient doing well post op. Path reviewed showing residual hyerplasia, no evidence of invasive cancer. Cleared for normal activity. PLAN: No further local truck driver onc follow up needed Pito Groves MD Allergies As of Date: 03/11/2023 (No Known Allergies) Date Reviewed: 03/11/2023 Reviewed by: Letitia Small - Fully Assessed Reason for Visit: endometrial cancer [Other] Cmt: Follow up post Op Primary Visit Diagnosis:Post-operati ve state [Z98.890] [Z98.890] Prescriptions as of 03/11/2023 - MULTIVITAMIN ORAL Take by mouth. - psyllium husk (METAMUCIL ORAL) Take by mouth. - ibuprofen (MOTRIN) 600 mg tablet Take 1 tablet by mouth every 8 hours as needed for pain. - acetaminophen (TYLENOL EXTRA STRENGTH) 500 mg tablet Take 2 tablets by mouth every 6 hours as needed for pain. Problem List As Of Date 03/11/2023 Noted Resolved Class 1 obesity due to excess calories without *01/19/2023 Kidney stones [N20.0] 01/19/2023 Endometrial hyperplasia with atypia [N85.02] 01/30/2023 Encounter Status:Closed by PITO GROVES on 03/11/23 [facility] CNOVSPon 02-18-2023 CNOVSP Visit (SP) Office (GYNOSA) ARELY MANUEL Bib ([id number]) 1955 F Date Time Provider Department 02/18/23 2:00 PM PITO GROVES During your visit today, we recorded the following information about you: Temperature Pulse Respiration Blood pressure 97.1 degrees 85/minute 18/minute 142/75 Weight Height 99.3 kg 1.702 m Pito Groves MD 02/18/2023 2:30 PM Signed DATE OF SERVICE: 01/14/2023 REASON FOR VISIT: Endometrial hyperplasia with atypia DIAGNOSIS: Endometrial hyperplasia with atypia HISTORY OF PRESENT ILLNESS: Arely Manuel is a 67 year old female with pmh significant for fibromyalgia and psoriasis 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 Previous biopsy in 2019 showed endometrial hyperplasia without atypia. Biopsy completed on 12/25/22 did demonstrate endometrial hyperplasia with atypia. Arely presents to local truck driver onc for further evaluation/hysterectom y discussion. 01/30/2023 Surgery: Total laparoscopic hysterectomy with bilateral salpingo-oophorectomy for uterus <250g DATE OF LAST VISIT: 01/14/2023 OBSTETRIC/ GYNECOLOGY HISTORY: Gynecologic surgery: None Last Pap: 10/3022 PAST MEDICAL HISTORY Diagnosis Date Endometrial hyperplasia IUD [id number] Fibromyalgia PAST SURGICAL HISTORY Procedure Laterality Date ABDOMINOPLASTY N/A HYSTEROSCOPY BX W/WO DANDC PT ED PLASTIC SURGERY Bilateral breast- no implant Family History Problem Relation Age of Onset Anesthesia Problems No Family History RECENT PATHOLOGY 01/30/2023 FINAL DIAGNOSIS A. Uterus, cervix, bilateral fallopian tubes and bilateral ovaries, hysterectomy and bilateral salpingo-oophorectomy: -Cervix: Nabothian cysts -Endometrium: Focal atypical hyperplasia, see comment -Myometrium: Leiomyomata and adenomyosis -Bilateral fallopian tubes: Paratubal cysts -Bilateral ovaries: Epithelial inclusion cysts, and endometriosis in right ovary 12/25/22 RECENT IMAGING: Date: Pelvic US 12/10/22 Date: CT A/P 12/29/22 SUBJECTIVE/INTERVAL HISTORY: Arely Manuel has been doing well since surgery. Pain well controlled. Patient states she has been fatigued since surgery. No bleeding or drainage. Having constipation - taking colace but no improvement plans to start metamucil. OBJECTIVE: VITALS: BP 142/75 Pulse 85 Temp (Src) 97.1 (Temporal) Resp 18 Ht 5' 7.008 (1.70m) Wt 219 lb (99.3kg) SpO2 98% BMI 34.29 kg/(m2). GENERAL: alert, oriented, pleasant, and cooperative. HEENT: Normocephalic, atraumatic, and no lesions. ABDOMEN: Abdomen soft, non-tender, laparoscopic incisions healing well ASSESSMENT: 67 year old y/o female presenting with endometrial hyperplasia with atypia now s/p TLH, BSO on 01/30/23- patient doing well post op. Path reviewed showing residual hyerplasia, no evidence of invasive cancer. Post op restrictions reviewed PLAN: Follow up for 6 week post op visit as scheduled Pito Groves MD Communication back to the referring provider will be sent by way of fax or medical record. Tennille Dickson (Irina) [address] [facility] [id number] Allergies As of Date: 02/18/2023 (No Known Allergies) Date Reviewed: 02/18/2023 Reviewed by: Leyla Harris - Fully Assessed Reason for Visit: Endometrial hyperplasia with atypia [Other] Primary Visit Diagnosis:Endometrial hyperplasia [N85.00 (ICD-10-CM)] [N85.00] Other Visit Diagnosis:Post-operati ve state [Z98.890 (ICD-10-CM)] [Z98.890] Prescriptions as of 02/18/2023 - ibuprofen (MOTRIN) 600 mg tablet Take 1 tablet by mouth every 8 hours as needed for pain. - acetaminophen (TYLENOL EXTRA STRENGTH) 500 mg tablet Take 2 tablets by mouth every 6 hours as needed for pain. - docusate sodium (COLACE) 100 mg capsule Take 1 capsule by mouth twice daily. Problem List As Of Date 02/18/2023 Noted Resolved Class 1 obesity due to excess calories without *01/19/2023 Kidney stones [N20.0] 01/19/2023 Endometrial hyperplasia with atypia [N85.02] 01/30/2023 Encounter Status:Closed by PITO GROVES on 02/18/23 [facility]N Tele[facility] (PETR) ARELY MANUEL ([id number]) 1955 F Date Time Provider Department 02/02/23 RASHMI VALIENTE During your visit today, we recorded the following information about you: Rashmi Valiente RN 02/02/2023 10:01 AM Signed Patient had Total laparoscopic hysterectomy with bilateral salpingo-oophorectomy for uterus <250g February 02, 2023 9:57 AM Patient called for post op follow up assessment. Reports she is doing OK Pain: Patient rates pain 5 on a scale of 0-10. 0 being no pain and 10 being worst pain imaginable. Patient states pain is tolerable. Diet: Patient is able tolerate fluids and normal diet. Bowel Movement: Patient is able to pass gas and has had a small bowel movement. She will try Miralax and MOM if needed Voiding: Patient is able to void without difficulty Vaginal Discharge: Denies any vaginal bleeding Skin Incision: Denies drainage, redness, or signs of infection. - adhesive present: Yes Medication: Denies questions or concerns about medication. Post op restrictions reviewed with patient including - activity- no heavy lifting, on pelvic rest - keep incision clean and dry. Ok to use mild antibacterial soap. - reviewed signs and symptoms to notify office including signs of infection, fever, heavy vaginal bleeding. - she is aware of post op appointment with Doctor Guillermo on 02/18/23 Patient verbalized understanding and denies further questions at this time. Understands to call the office with further concerns/questions. Survivorship treatment summary initiated: Path in process Rashmi Valiente RN Allergies As of Date: 02/02/2023 (No Known Allergies) Date Reviewed: 01/30/2023 Reviewed by: Maggie Wilder RN - Fully Assessed Reason for Visit: Post Op Call [1185] Prescriptions as of 02/02/2023 - ibuprofen (MOTRIN) 600 mg tablet Take 1 tablet by mouth every 8 hours as needed for pain. - oxyCODONE IR (ROXICODONE) 5 mg immediate release tablet Take 1 tablet by mouth every 8 hours as needed for pain for up to 5 days. - acetaminophen (TYLENOL EXTRA STRENGTH) 500 mg tablet Take 2 tablets by mouth every 6 hours as needed for pain. - docusate sodium (COLACE) 100 mg capsule Take 1 capsule by mouth twice daily. Problem List As Of Date 02/02/2023 Noted Resolved Class 1 obesity due to excess calories without *01/19/2023 Kidney stones [N20.0] 01/19/2023 Endometrial hyperplasia with atypia [N85.02] 01/30/2023 Encounter Status:Closed by RASHMI VALIENTE on 02/02/23 [facility] ANES POSTPROC EVALon 023 ANES POSTPROC EVAL HNO ID: [id number] Author: Arben Timmons MD Service: Anesthesiology Author Type: Anesthesiologist Type: Anesthesia Postprocedure Evaluation Filed: 01/30/2023 1:36 PM Note Text: POST ANESTHESIA EVALUATION NOTE : 1955 Procedure Summary Date: 01/30/23 Room / Location: OR04 / [facility] OR Anesthesia Start: 1040 Anesthesia Stop: 1231 Procedure: LAPAROSCOPIC HYSTERECTOMY TOTAL FOR UTERUS 250 G OR LESS W/REMOVAL TUBE(S) AND/OR OVARY(S) (Bilateral: Pelvis) Diagnosis: Endometrial hyperplasia with atypia (Endometrial hyperplasia with atypia [N85.02]) Surgeons: Pito Groves MD Responsible Provider: Arben Timmons MD Anesthesia Type: general ASA Status: 2 Anesthesia Type: general Airway Type: ETT Last Vitals Vitals Value Taken Time BP 147/74 01/30/23 1300 Temp 36 ?C (96.8 ?F) 01/30/23 1225 Pulse 84 01/30/23 1311 Resp 18 01/30/23 1311 SpO2 91 % 01/30/23 1335 Vitals shown include unvalidated device data. Post Anesthesia Patient Status Patient Evaluation: PACU. PACU/ICU Patient Condition: stable. Anticipated Disposition: inpatient floor planned admission. Neurological Status: aware and responsive. Pulmonary Status: breathing comfortably on room air Airway Control: returned to baseline unsupported. Cardiovascular Status: stable. Pain Management: clinically adequate Postoperative Hydration: acceptable. Intraoperative Events: no significant anesthesia events Recommendation: continue current plan of care. Anesthesia Observations No Documentation SIGNATURE: Arben Timmons MD PATIENT NAME: Arely Manuel DATE: January 30, 2023 TIME: 1:36 PM CSN: [id number] [facility] ANES PRE-OPon 01-30-2023 ANES PRE-OP HNO ID: [id number] Author: Arben Timmons MD Service: Anesthesiology Author Type: Anesthesiologist Type: Anesthesia Preprocedure Evaluation Filed: 01/30/2023 9:35 AM Note Text: ANESTHESIOLOGY DAY OF SURGERY NOTE : 1955 Procedure Information Date/Time: 01/30/23 1000 Procedure: LAPAROSCOPIC HYSTERECTOMY TOTAL FOR UTERUS 250 G OR LESS W/REMOVAL TUBE(S) AND/OR OVARY(S) (Bilateral: Pelvis) Location: [place] [address] / OR Surgeons: Pito Groves MD Estimated body mass index is 33.99 kg/m? as calculated from the following: Height as of 01/19/23: 170.2 cm (5' 7 ). Weight as of 01/19/23: 98.4 kg (217 lb). Most recent hematocrit and potassium results: Hematocrit 44.0 01/14/2023 Potassium 4.4 01/14/2023 Relevant Problems No relevant active problems Obesity Other Medical Problems/ Important Considerations: Denies chest pain and SOB with exertion. Does not exercise. Denies change in functional capacity. I - PHYSICAL EVALUATION AIRWAY Patient intubated: No. Tracheostomy tube not present Mallampati: II. TM distance: >3 FB. Neck ROM: full ROM without neurological symptoms. Mouth opening: adequate. Short neck: yes. Thick neck: yes DENTAL Dental findings: teeth intact. II - ANESTHESIA PLAN ASA Score: 2 Anesthetic Plan: general Airway type: ETT The patient is not a current smoker. NPO Status: adequate Beta Ariana Monitoring Plan Monitoring plan: standard ASA. Post Procedure Analgesic Plan Postoperative analgesic plan: multimodal analgesia and per surgical service. Informed Consent Anesthetic risks, benefits, alternatives, personnel and consent discussed: yes. Patient / Responsible Alliance Party agrees to proceed: yes Patient / Surrogate agrees to blood products: Yes Significant changes in the patient condition since the History and Physical, not otherwise documented in primary service progress note: no. Potential Anesthesia issues that may suggest increased risk of complications or contraindication to planned procedure: none. Vitals Value Taken Time BP 159/91 01/30/23916 Pulse 77 01/30/23916 Resp 14 01/30/23916 Temp 36.9 ?C (98.4 ?F) 01/30/23916 SpO2 99 % 01/30/23916 Facility-Administered Medications as of 01/30/2023 Medication Dose Route Frequency - lidocaine (PF) 10 mg/mL (1 %) 1-2 mg injection (XYLOCAINE) 0.1-0.2 mL INTRADERMAL PRN - lactated ringers iv infusion 5-30 mL/hr INTRAVENOUS CONTINUOUS - NaCl 0.9% iv flush bag 20 mL INTRAVENOUS PRN - ceFAZolin iv piggyback 2 g in D5W (iso-osmotic) 100 mL (ANCEF) 2 g INTRAVENOUS Pre-Op Once - acetaminophen 1,000 mg tab(s) (TYLENOL) 1,000 mg ORAL Pre-Op Once - promethazine 12.5 mg tab(s) (PHENERGAN) 12.5 mg ORAL Pre-Op Once - lactated ringers iv infusion 30 mL/hr INTRAVENOUS CONTINUOUS Outpatient Medications as of 01/30/2023 Medication Sig - GAVILYTE-G 236-22.74-6.74 -5.86 gram suspension DRINK 8OZ EVERY 15 MINUTES BY MOUTH AT 4PM THE DAY PRIOR TO COLONOSCOPY I have interviewed and examined the patient. I have reviewed the medical record and/or the pre-anesthesia evaluation, pertinent labs, and test results. This contains updated information obtained within 48 hours of Surgery/Procedure. SIGNATURE: Arben Timmons MD PATIENT NAME: Arely Manuel DATE: January 30, 2023 TIME: 9:34 AM CSN: [id number] [facility] CONFIRM BLOOD TYPEon 023 ABO A [facility] Comment on above: Order Comment: Speci men Type: BLOOD SPECIMENOrdering Facility: [facility] Address: [address] [place] [address] Performed By: #### C ONABO ####[facility] BANKCLIA [id number] [address] Rh Nom (Bld) Positive [facility] Comment on above: Order Comment: Speci men Type: BLOOD SPECIMENOrdering Facility: [facility] Address: [address] [place] [address] Performed By: #### C ONABO ####[facility]LO[facility] BANKCLIA [id number] [address] OF [facility] HISTORY PHYSICALon 3 HISTORY PHYSICAL HNO ID: [id number] Author: Wendy Gunderson MD Service: Gynecology Oncology Author Type: Fellow Type: HANDP Filed: 01/30/2023 10:00 AM Note Text: UPDATED HISTORY AND PHYSICAL EXAMINATION SERVICE DATE: 01/30/2023 SERVICE TIME: 10:00 AM PHYSICAL EXAM MUST BE COMPLETED ON ADMISSION The History and Physical (completed in the past 30 days) has been reviewed and the patient has been examined. The contents accurately reflect the patient's condition with the following additions or revisions since the HANDP was completed. Examination indicates no changes. This HANDP can be found in the Electronic Medical Record dated 01/19/23. SIGNATURE: Wendy Gunderson MD PATIENT NAME: Arely Manuel DATE: January 30, 2023 TIME: 10:00 AM [facility] NURSING PROGon 01-30-2023 NURSING PROG HNO ID: [id number] Author: Bere Vasquez RN Service: Nursing Author Type: Registered Nurse Type: Nursing Progress Note Filed: 01/30/2023 8:44 AM Note Text: PATIENT EDUCATION TOPIC: PROCEDURE / SURGERY: Pre-op Teaching: Logistics Protocols PATIENT NAME: Arely Manuel PATIENT LOCATION: [facility] OR POOL/[facility] OR POOL READINESS TO LEARN COGNITIVE ABILITY: Alert and oriented MOTIVATION TO LEARN: Eager Interested FAMILY SUPPORT: None - Unavailable/disinteres ariane INSTRUCTION PROVIDED TO: Patient PATIENT LEARNS BEST BY: Verbal Instruction FACTORS AFFECTING LEARNING: None PHYSICAL LIMITATIONS AFFECTING LEARNING: None LEARNING RESPONSE DIAGNOSIS: ADULT: Well Adult PATIENT/FAMILY RESPONSE: Verbalizes understanding of: PRE-OPERATIVE INSTRUCTIONS-Correct action to take to follow pre-operative instructions PRE-PROCEDURE INSTRUCTIONS-Correct action to take to follow pre-procedure instructions METHOD OF INSTRUCTION: Verbal instruction FOLLOW-UP PLAN: Complete - No need for follow-up INSTRUCTIONAL AIDS USED: NA SUPPLEMENTAL MATERIAL PROVIDED TO PATIENT: None REFERRAL (RECOMMENDATION): None Electronically Signed By: Bere Vasquez [facility] OPERATIVE NOon 01-30-2023 OPERATIVE NO HNO ID: [id number] Author: Pito Groves MD Service: Gynecology Oncology Author Type: Physician Type: Operative Report Filed: 01/30/2023 12:11 PM Note Text: OPERATIVE/PROCEDURE REPORT LOG ID: [id number] SURGERY/PROCEDURE DATE: 01/30/2023 INCISION/PROCEDURE START TIME: 11:07 AM INCISION CLOSE/PROCEDURE END TIME: 12:11 PM SURGEON(S)/PROCEDURALI ST(S) AND MERCHANDISE ADJUSTMENT CLERK(S): Surgeon(s) and Role: * Pito Groves MD - Primary * Cheryl Lara MD - Resident - Assisting * Wendy Gunderson MD - Resident - Assisting No Additional Staff SURGERY/PROCEDURE(S): Total laparoscopic hysterectomy with bilateral salpingo-oophorectomy for uterus <250g ANESTHESIA: General INDICATION FOR PROCEDURE: 67 y.o female with endometrial hyperplasia presents for surgical management INTRAOPERATIVE FINDINGS: Exam under anesthesia revealed normal vagina and cervix. Intraabdominal survey was without significant findings. SURGERY/PROCEDURE DETAILS: After informed consent was obtained patient was taken to the operating room and placed under general anesthesia. She was positioned in dorsal lithotomy position with legs in aguila stirrups with care taken to avoid excessive pressure on the lateral leg or hyperextension/flexion of the hip. Arms were tucked at the side padded and secured. She was prepped and draped in a normal sterile fashion. Parada catheter was placed into the bladder. Patient received prophylactic antibiotics prior to incision. SCDs were in place for DVT prophylaxis. Surgical time out was performed confirming patient and procedure. Findings from exam under anesthesia were as above. A speculum was placed into the vagina and cervix was noted to be normal apearing. There was cervical stenosis noted and a 35mm colpotomy tube was placed into the vagina. We then turned attention to the abdomen where A 5mm umbilical incision was made after injection of marcaine. Veress needle was used for entry into the peritoneal cavity on a single attempt and abdomen was insufflated up to 15mmhg. A 5mm port was placed under direct visualization. Initial survey of the abdomen was noted as above. Two additional 5mm ports were placed in the left lower quadrant and one additional 5mm port was placed on the right lower quadrant under direct visualization with care taken to avoid the inferior epigastric vasculature. Following this a peritoneal incision was made lateral to the left gonadal vessels to enter the retroperitoneal space. The left ureter wasidentified and the IP ligament was ligated and transected using ligasure device above the ureter, the posterior leaf of the broad ligament was taken down towards the uterus. The left round ligament was then ligated and transected and the anterior leaf of the broad ligament was taken down towards the bladder. The uterine artery was skeletonized, ligated and transected at the level of the colpotomy cup. Dissection occurred in the same fashion on the right side. Uterine artery pedicles were lateralized away from the colpotomy cup . Bladder flap was taken down below the level of the colpotomy cup. A colpotomy was then created using monopolar energy. The uterus,cervix, tubes and ovaries were delivered through the vagina and sent to pathology. The vagina was closed laparoscopically in a running fashion with 0 vloc suture. The pelvis was thoroughly irrigated and hemostasis was achieved without difficulty. Abdomen was deflated, all ports were removed from the abdomen, Skin was closed with 4-0 monocryl in a running fashion. Counts were correct x 2 at the end of the procedure, patient tolerated the procedure well and was transferred to PACU in stable condition. PRE-OP/PRE-PROCEDURE DIAGNOSIS: endometrial hyperplasia POST-OP/POST-PROCEDURE DIAGNOSIS: Same as Preop ESTIMATED BLOOD LOSS: 20 mls SPECIMENS: ID Type Source Tests Collected by Time Destination A : Tissue UTERUS, CERVIX, BILATERAL FALLOPIAN TUBES AND BILATERAL OVARIES SURGICAL PATHOLOGY Pito Groves MD 01/30/2023 11:44 AM IMPLANTABLE DEVICES: NONE DRAINS: None HEMOSTATIC AGENTS: None COMPLICATIONS: None PARTICIPATION IN SURGERY/PROCEDURE: I/primary surgeon/proceduralist performed the procedure with assistance. I was scrubbed and present for all avila portions of the above procedure. SIGNATURE: Pito Groves MD PATIENT NAME: Arely Manuel DATE: January 30, 2023 TIME: 12:08 PM Pito Groves MD [facility] SURGICAL PATHOLOGYon 023 ADDENDUM 1: [facility] Comment on above: Order Comment: Speci men Type: TISSUE SPECIMEN [facility] Address: [address] [place] [id number] Result Comment: This addendum is to report that immunostain of CD10 was performed on block A2, which highlights the stroma cells of the endometriosis in right ovary. Laboratory Developed Test (LDT) Disclaimer: Performance characteristics of immunohistochemical, immunofluorescent and chromogenic in-situ hybridization tests have been determined by the performing laboratory within [facility] Medicine [place] ([facility], [facility], [facility], [facility], or Pending Sale To [facility]) in a manner consistent with CLIA requirements. One or more of these tests have not been cleared or approved by the FDA. [facility] is regulated under CLIA as qualified to perform high-complexity testing. These tests are used for clinical purposes. They should not be regarded as investigational or for research. Positive and negative controls stain appropriately. Addendum electronically signed by Rosario Gale MD on 02/11/2023 at 11:29 AM Performed By: #### S #### [facility] CLIA [id number] [facility] CASE REPORT Normal [facility] Comment on above: Order Comment: Speci men Type: TISSUE SPECIMEN [facility] Address: [address] [place] [address] Result Comment: Surg ical Pathology Report Case: [id number] Authorizing Provider: Pito Groves MD Collected: 01/30/2023 11:44 AM Ordering Location: [facility] Received: 01/30/2023 11:58 AM Operating Room Pathologist: Rosario Gale MD Specimen: UTERUS, CERVIX, BILATERAL FALLOPIAN TUBES AND BILATERAL OVARIES Performed By: #### S #### [facility] CLIA [id number] [address] [place] [address] CLINICAL HISTORY [facility] Comment on above: Order Comment: Speci men Type: TISSUE SPECIMEN [facility] Address: [address] [place] [address] Result Comment: Pre- op diagnosis: Endometrial hyperplasia with atypia [N85.02] Performed By: #### S #### [facility] CLIA [id number] [address] [place] [address] DIAGNOSIS COMMENT [facility] Comment on above: Order Comment: Speci men Type: TISSUE SPECIMEN [facility] Address: [address] [place] [address] Result Comment: Immu nostain of p53 performed on block A7 show wild-type staining pattern on the atypical glands. Laboratory Developed Test (LDT) Disclaimer: Performance characteristics of immunohistochemical, immunofluorescent and chromogenic in-situ hybridization tests have been determined by the performing laboratory within [facility] Pathology and Laboratory Medicine [place] ([facility], [facility], [facility], [facility], or Pending [facility]) in a manner consistent with CLIA requirements. One or more of these tests have not been cleared or approved by the FDA. [facility] is regulated under CLIA as qualified to perform high-complexity testing. These tests are used for clinical purposes. They should not be regarded as investigational or for research. Positive and negative controls stain appropriately. Performed By: #### S #### [facility] CLIA [id number] [address] [place] [address] FINAL DIAGNOSIS Normal [facility] Comment on above: Order Comment: Speci men Type: TISSUE SPECIMEN [facility] Address: [address] [place] [address] Result Comment: A. U terus, cervix, bilateral fallopian tubes and bilateral ovaries, hysterectomy and bilateral salpingo-oophorectomy: -Cervix: Nabothian cysts -Endometrium: Focal atypical hyperplasia, see comment -Myometrium: Leiomyomata and adenomyosis -Bilateral fallopian tubes: Paratubal cysts -Bilateral ovaries: Epithelial inclusion cysts, and endometriosis in right ovary XC 02/10/2023 Performed By: #### S #### [facility] CLIA [id number] [address] [place] [address] FINAL PERFORMING LAB Normal [facility] Comment on above: Order Comment: Speci men Type: TISSUE SPECIMEN [facility] Address: [address] [place] [address] Result Comment: Diag nostic interpretation performed at [facility], [address] [place] [address] CLIA# [id number] Pump Operator: Art Gallagher M.D. Performed By: #### S #### [facility] CLIA [id number] [address] [place] [address] GROSS DESCRIPTION [facility] Comment on above: Order Comment: Speci men Type: TISSUE SPECIMEN [facility] Address: [address] [place] [place] [address] Result Comment: A. U TERUS, CERVIX, BILATERAL FALLOPIAN TUBES AND BILATERAL OVARIES Received fresh designated uterus, cervix, bilateral fallopian tubes and bilateral ovaries is a uterus with attached cervix that weighs 97 g and measures 9.2 x 5.5 x 3.2 cm. The ectocervix is pink-booker and smooth. The cervical os is round. The endocervical canal is pink-booker and smooth measuring 3 cm in greatest dimension and the endometrial cavity measures 4.5 x 2.6 cm. The endometrium is pink-booker and smooth with a submucosal nodule that measures 0.4 cm in greatest dimension. The endometrium measures 0.2 cm in thickness. The myometrium is pink-booker and trabeculated measuring 1.7 cm in thickness. The serosal surface is pink-booker and smooth. Attached to the uterus is the left fallopian tube that measures 6 cm in length and 0.6 cm in diameter. The outer surface is pink-booker and smooth. The fimbriated end is unremarkable. A paratubal cyst is identified. Sectioning through the tube reveals a patent lumen. Attached to the fallopian tube is an ovary that measures 2.4 x 1.6 x 1.2 cm. The outer surface is booker-quezada and wrinkled. Sectioning through the ovary reveals unremarkable ovarian parenchyma. Also attached to the uterus is the right fallopian tube measures 6.4 cm in length and 0.6 cm in diameter. The outer surface is pink-booker and smooth. The fimbriated end is unremarkable. Sectioning through the tube reveals a patent lumen. Attached to the fallopian tube is an ovary that measures 2.7 x 1.4 x 1.4 cm. The outer surface is pink-booker and wrinkled. Sectioning through the ovary reveals unremarkable ovarian parenchyma. Casing Crew Pusher sections are submitted as follows: A1. Endocervical canal 12:00. A2. Endocervical canal 6:00. A3. Anterior endomyometrium with serosa. A4. Posterior endomyometrium with serosa and submucosal nodule. A5-A6. Remaining anterior endometrium. A7-A8. Remaining posterior endometrium. A9. Left fallopian tube with entire fimbriated end. A10. Left ovary. A11. Right fallopian tube with entire fimbriated end. A12. Right ovary. WE January 30, 2023 12:41 PM Gross examination performed at [facility], [address] [place] [address] Performed By: #### S #### [facility] CLIA [id number] [address] [place], [place] [address] [place] 01-28-2023 CNPN Telephone (GYNML) ARELY MANUEL ([id number]) 1955 F Date Time Provider Department 01/28/23 JOSE MANUEL WILLARD GYNKARI During your visit today, we recorded the following information about you: Jose Manuel Willard RN 01/28/2023 9:23 AM Signed Pre-op teaching Procedure: [facility] Physician: Dr. Groves Location: [facility]: [phone] Date AND Time: 01/30/23 MEDICAL CLEARANCE: No CARDIAC CLEARANCE: No PRE ADMISSION TESTIN01/19/23 THE FOLLOWING WAS EVALUATED Motivation To Learn: Eager Family/Significant Other Support: High - Very involved in pt care Cognitive Ability: Alert and oriented Patient Learns Best By: Individual Instruction Written Instruction - Hand-outs Verbal Instruction The Following Influencing Factors Were Barriers To This Education Session: None The Following Physical Limitations Were Barriers To This Education Session: None Instruction Provided To: Patient MEDICATION INFORMATION ASPIRIN and ADVIL can make you more prone to bleeding after surgery. Please STOP taking these medications at least (5) days before and for (3) days after surgery or procedure. Some common medications that contain ASPIRIN or act like Aspirin are TO BE AVOIDED: This is a list of the medications you should avoid: Advill Celebrex Motrin Aggrenox Clinoril Naprosyn(naproxen) Agrylin NSAIDS Pepto-Bismol Aleve Ecotrin Persantine Alecia-Flint Excedrin Plaquenil Anacin Heparin Plavix Ascriptin Herbals Pletal Aspergum Ibuprofen Ticlid Lexi Indocin Trental Bextra Midol Vanquish Bufferin Gingko Biloba Vitamin E (MVI) MEDICATIONS YOU MAY SUBSTITUTE Anacin 3 Fioricet * Tylenol with codeine * Darvocet N 100 * Plenadol Percocet * Datril Sine-Aide Tylenol Excedrin PM (*Denotes prescription needed to obtain these medications) Learning Topic: Procedure/Surgery: Instructions reviewed for arrival time, parking and admission. Specific topics reviewed and discussed with all surgical patients include: No eating, drinking, or smoking after midnight prior to surgery. Medications as prescribed by anesthesia or the physician. Bowel Prep as indicated. Review of information contained in surgical packet Pre-operative and intra-operative general activities were reviewed including: Holding Area, assessments, surgical positioning, and Family Waiting Area. Written post-operative instructions were given to the patient regarding post-op activity, pain control, symptoms to report. Post-operative instructions provided and reviewed with patient/family: ACTIVITY - No heavy lifting (>5-10 lbs), no pushing/pulling, OK to climb stairs DRIVING - No driving while taking prescription pain medication, or within 24 hours of anesthesia, OK to ride in a car. DIET - Advance diet as tolerated and as ordered by MD, drink 8 glasses of water a day, eat a diet high in protein and fiber unless otherwise directed by MD. CATHETER - Will be inserted during surgery, you may go home with a catheter. If you go home with a catheter you will have to come back to the office for a voiding trial, UTI symptoms reviewed and patient instructed to notify MD of any of these symptoms. INCISION CARE - Keep incision clean and dry, karla to be removed 7-10 days after surgery, steristrips do not need to be removed by MD BATHING - OK to shower after surgery unless otherwise directed by MD, no tub baths. PAIN MEDICATION - IV pain medication after surgery, IV GROCERY SHOPPER if ordered by MD, discharged home with a prescription for PO pain medication, pain management after surgery, side effects of pain medication (including constipation, dizziness, drowsiness, and medication interactions). DVT PROPHYLAXIS - Early ambulation, SCDs, injectable anticoagulants (heparin, lovenox, etc) RESPIRATORY - Incentive spirometer, coughing/deep breathing exercises, ambulation. RETURN TO WORK - As directed by physician, please send any FMLA papers to physician's board of education secretary. SYMPTOMS TO NOTIFY MD - Fever, chills, nausea, vomiting, increased or severe pain, heavy vaginal bleeding, foul smelling vaginal drainage, pain or swelling in extremities. URGENT SYMPTOMS - Call 911 or go to ER if any shortness of breath, difficulty breathing, or chest pain. HOW TO CONTACT PHYSICIAN - Physician's office phone number given to patient, if after hours patient instructed to call sugar reprocess operator head and ask for the doctor director of business applications. Patient and family have phone number to call 24 hours/day. Patient Evaluation: Verbalizes understanding Patient and/or family express understanding of upcoming surgery and the operative process. Questions answered. Follow Up Plan: Follow up as needed Supplemental Material Given: Pre-operative teaching packet provided to the patient: INPATIENT/OUTPATIENT printed instructions; Post-operative instruction sheet, bowel prep instruction sheet For questions (more content not included)... Normal [facility] ECG COMPLETEon 01-19-2023 ECG COMPLETE Ventricular Rate : 8 5 BPM Atrial Rate : 85 BPM P-R Interval : 178 ms QRS Duration : 74 ms Q-T Interval : 352 ms QTC Calculation(Bazett) : 418 ms Calculated P Mesilla : 69 degrees Calculated R Mesilla : 22 degrees Calculated T Mesilla : 59 degrees NORMAL SINUS RHYTHM NORMAL ECG Confirmed by ROS ORELLANA M.D. ([id number]) on 01/21/2023 3:38:12 PM NAME : ARELY MANUEL PID : [id number] : 1955 Gender : Female Race : ORD : [id number] Procedure Date : Jan 19 2023 09:08:03 Edit Date : Jan 21 2023 15:38:15 Diagnosis: NORMAL SINUS RHYTHM NORMAL ECG Confirmed by ROS ORELLANA M.D. ([id number]) on 01/21/2023 3:38:12 PM Test Reason : Location : 145 : [place]ARD Overread By : ROS ORELLANA M.D. Edited By : ROS ORELLANA M.D. Referred By : KENDY HOLLOWAY Acquired by : Karlene salcido [facility] HISTORY PHYSICALon HISTORY PHYSICAL HNO ID: [id number] Author: Kendy Holloway APRN.SANDSTONE SPLITTER Service: ? Author Type: Nurse Practitioner Type: HANDP Filed: 01/19/2023 10:17 AM Note Text: HISTORY AND PHYSICAL EXAMINATION SERVICE DATE: 01/19/2023 SERVICE TIME: 9:37 AM PRIMARY CARE PHYSICIAN: ANDREW Middleton REASON FOR VISIT: Arely Manuel is a 67 year old female who is scheduled for LAPAROSCOPIC HYSTERECTOMY TOTAL FOR UTERUS 250 G OR LESS W/REMOVAL TUBE(S) AND/OR OVARY(S) - Bilateral with Pito Groves MD on 01/30/2023 at the request of for consultation. My final recommendation will be communicated back to the requesting physician by way of shared medical record or letter. The patient has the following: ACTIVE PROBLEM LIST Class 1 Obesity Due to Excess Calories Without Serious Comorbidity With Body Mass Index (Bmi) of 33.0 to 33.9 in Adult Kidney Stones Subjective CHIEF COMPLAINT: AUB HPI: This is a 67 year old female who presents with post menopausal bleeding. She has been following with MARKETING AMBASSADOR for several years with a diagnosis of endometrial hyperplasia without atypia. The patient has complaints of feeling bloated, had some spotting after her recent biopsy. Was having flank pain and had CT scan which showed kidney stones but no lymphadenopathy or other abnormal findings. Most recent biopsy again demonstrates this diagnosis. Patient has opted to proceed with above reccommended surgery and is here today for preanesthesia consultation. PAST MEDICAL HISTORY Diagnosis Date Endometrial hyperplasia IUD 8697-8424 Fibromyalgia PAST SURGICAL HISTORY Procedure Laterality Date ABDOMINOPLASTY N/A HYSTEROSCOPY BX W/WO DANDC PT ED PLASTIC SURGERY Bilateral breast- no implant FAMILY HISTORY Problem Relation Age of Onset Anesthesia Problems No Family History SOCIAL HISTORY: Social History Tobacco Use Smoking status: Former Packs/day: 0.25 Years: 40.00 Pack years: 10.00 Types: Cigarettes Quit date: 2019 Years since quittin.3 Smokeless tobacco: Never Vaping Use Vaping Use: Never used Substance Use Topics Alcohol use: Yes Comment: 1-2 monthly Drug use: Not Currently MEDICATIONS: Prior to Admission medications as of 01/19/23 0954 Medication Sig Last Dose Taking GAVILYTE-G 236-22.74-6.74 -5.86 gram suspension DRINK 8OZ EVERY 15 MINUTES BY MOUTH AT 4PM THE DAY PRIOR TO COLONOSCOPY No medication comments found. CURRENT ALLERGIES: ALLERGIES No Known Allergies Covid Immunization Dates Overdue - COVID-19 VACCINE (1) Overdue - never done No completion, postpone, frequency change, or communication history exists for this topic. REVIEW OF SYSTEMS: PAIN ASSESSMENT: General: No weight loss, malaise or fevers. Neuro: No history of TIA's, stroke, ENTRY LEVEL MANAGER tumor, impaired sensorium, hemiplegia, paraplegia or quadraplegia. No neurological symptoms or problems. Respiratory: No history of current cough or dyspnea, or pneumonia in the past 6 weeks. No history of respiratory/pulmonary symptoms or problems. Cardiovascular: No history of HTN requiring medication, no history of angina, CHF, PR, cardiac surgery or stents. Denies rest pain, gangrene or revascularization/ampu tation for PVD. No history of cardiovascular symptoms or problems. GI: No history of GI symptoms or problems. No history of esophageal varices, recent ascites, or ETOH greater than 2 drinks per day. : No difficulty urinating, nocturia > 1 time per night or hematuria + Kidney stones Endocrine: No history of diabetes. Has not taken steroids within the past 30 days. No history of endocrinological symptoms or problems. Hematology: No history of bleeding or clotting disorder. Pt is not taking anti-coagulation or platelet medications. No history of hematological symptoms or problems. Oncology: No history of CA metastasis, chemo within 30 days, or radiotherapy within 90 days. Has not lost 10% of body wt in 6 months. No history of oncological symptoms or problems. Psych: No history of psychiatric symptoms or problems. Musculoskeletal: Negative for joint pain or swelling, back pain or muscle pain. Skin: Negative for lesions, rash and itching. Objective PHYSICAL EXAM: VITALS: BP 131/78 Pulse 89 Temp (Src) 97.6 (Temporal) Resp 14 Ht 5' 7 (1.70m) Wt 217 lb (98.4kg) SpO2 99% BMI 33.98 kg/(m2). General: Alert and oriented, No acute distress, Obese Skin: Normal color, no rash, no lesions. HEENT: EOM, pupils equal, round and reactive. Cardiovascular: Normal S1 AND S2, no rubs, murmurs or gallops. No JVD. Pulse regular. Lungs: Normal breath sounds, no wheezes or crackles. Abdomen: Soft, non-tender, no rigidity. Extremities: No deformity, no edema or tenderness, no joint swelling or clubbing. Neurological: Normal cognition and motor skills. Pulses: Carotid and radial pulses normal +2. Diagnostic tests reviewed for today's visit: Lab Value Units Date High Low HB 14.3 g/dL (more content not included)... Normal [facility] CBC panel Auto (Bld)on 01-14 Erythrocyte distribution width (RBC) [Ratio] 13.8 % Normal 11.5-15.0 [facility] Comment on above: Order Comment: Speci men Type: BLOOD SPECIMEN Ordering Facility: [facility] Address: [address] [place] [address] Performed By: #### 5 8410-2 #### [facility] CLIA [id number] [address] [place] [address] Hematocrit (Bld) [Volume fraction] 44.0 % Normal 36.0-46.0 [facility] Comment on above: Order Comment: Speci men Type: BLOOD SPECIMEN Ordering Facility: [facility] Address: [address] [place] [address] Performed By: #### 5 8410-2 #### [facility] CLIA [id number] [address] [place] [address] Hemoglobin (Bld) [Mass/Vol] 14.3 g/dL Normal 11.5-15.5 [facility] Comment on above: Order Comment: Speci men Type: BLOOD SPECIMEN Ordering Facility: [facility] Address: [address] [place] [address] Performed By: #### 5 8410-2 #### [facility] CLIA [id number] [address] [place] [address] MCH (RBC) [Entitic mass] 29.3 pg Normal 26.0-34.0 [facility] Comment on above: Order Comment: Speci men Type: BLOOD SPECIMEN Ordering Facility: [facility] Address: [address] [place] [address] Performed By: #### 5 8410-2 #### [facility] CLIA [id number] [address] [place] [address]44 MCHC (RBC) [Mass/Vol] 32.5 g/dL Normal 30.5-36.0 [facility] Comment on above: Order Comment: Speci men Type: BLOOD SPECIMEN Ordering Facility: [facility] Address: [address] [address] Performed By: #### 5 8410-2 #### [facility] CLIA [id number] [address] [place] [address] MCV (RBC) [Entitic vol] 90.2 fL Normal 80.0-100.0 [facility] Comment on above: Order Comment: Speci men Type: BLOOD SPECIMEN Ordering Facility: [facility] Address: [address] [address] Performed By: #### 5 8410-2 #### [facility] CLIA [id number] [address] [place] [address] Nucleated RBC (Bld) [#/Vol] 10*3/uL Normal <0.01 [facility] Comment on above: Order Comment: Speci men Type: BLOOD SPECIMEN Ordering Facility: [facility] Address: [address] [address] Performed By: #### 5 8410-2 #### [facility] CLIA [id number] [address] [place] [address] Platelet mean volume (Bld) [Entitic vol] 9.4 fL Normal 9.0-12.7 [facility] Comment on above: Order Comment: Speci men Type: BLOOD SPECIMEN Ordering Facility: [facility] Address: [address] [address] Performed By: #### 5 8410-2 #### [facility] CLIA [id number] [address] [place] [address] Platelets (Bld) [#/Vol] 288 10*3/uL Normal 150-400 [facility] Comment on above: Order Comment: Speci men Type: BLOOD SPECIMEN Ordering Facility: [facility] Address: [address] [address] Performed By: #### 5 8410-2 #### [facility] CLIA [id number] [address] [place] [address] RBC (Bld) [#/Vol] 4.88 10*6/uL Normal 3.90-5.20 [facility] Comment on above: Order Comment: Speci men Type: BLOOD SPECIMEN Ordering Facility: [facility] Address: [address] [place], [place] [address] Performed By: #### 5 8410-2 #### [facility] CLIA [id number] [address] [place] [address] WBC (Bld) [#/Vol] 9.64 10*3/uL Normal 3.70-11.00 [facility] Comment on above: Order Comment: Speci men Type: BLOOD SPECIMEN Ordering Facility: [facility] Address: [address] [place] [address] Performed By: #### 5 8410-2 #### [facility] CLIA [id number] [address] [place] [address] CNOVSPon 01-14-2023 OVS Visit (SP) Office (GYNOSA) ARELY MANUEL ([id number]) 1955 F Date Time Provider Department 01/14/23 2:30 PM PITO GROVES During your visit today, we recorded the following information about you: Temperature Pulse Respiration Blood pressure 98 degrees 92/minute 18/minute 163/86 Weight 101.3 kg Pito Groves MD 01/14/2023 3:27 PM Signed DATE OF SERVICE: 01/14/2023 REASON FOR VISIT: Endometrial hyperplasia with atypia Consultation requested by Dr. Tennille Dickson. My final recommendations will be communicated back to the requesting physician by way of shared Medical record or letter to requesting physician via US mail. 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 Previous biopsy in 2019 showed endometrial hyperplasia without atypia. Biopsy completed on 12/25/22 did demonstrate endometrial hyperplasia with atypia. Arely presents to local truck driver onc for further evaluation/hysterectom y discussion. Feeling bloated, had some spotting after her recent biopsy. Was having flank pain and had CT scan which showed kidney stones but no lymphadenopathy or other abnormal findigs. DATE OF LAST VISIT: NA OBSTETRIC/ GYNECOLOGY HISTORY: Gynecologic surgery: None Last Pap: 10/3022 PAST MEDICAL HISTORY Diagnosis Date Endometrial hyperplasia IUD 8711-6044 Fibromyalgia PAST SURGICAL HISTORY Procedure Laterality Date ABDOMINOPLASTY N/A HYSTEROSCOPY BX W/WO DANDC History reviewed. No pertinent family history. RECENT PATHOLOGY 12/25/22 RECENT IMAGING: Date: Pelvic US 12/10/22 Date: CT A/P 12/29/22 ECOG performance status ECOG PERFORMANCE STATUS: 0- Fully active, able to carry on all pre-disease performance w/o restriction. OBJECTIVE: VITALS: BP 163/86 Pulse 92 Temp (Src) 98 (Temporal) Resp 18 Wt 223 lb 6.4 oz (101.3kg) SpO2 98% GENERAL: alert, oriented, pleasant, and cooperative. HEENT: Normocephalic, atraumatic, and no lesions. HEART: Regular rate and rhythm, no murmurs. LUNGS: Clear to auscultation bilaterally. Good air exchange. ABDOMEN: Abdomen soft, non-tender, ASSESSMENT: 67 year old y/o female presenting with endometrial hyperplasia with atypia. I reviewed pathology report and images from recent CT scan 12/29 - showing small uterus with thickened endometrium. Reviewed pathology showing endometrial hyperplasia w/atypia, discussed up to 40% risk of underlying carcinoma. Discussed definitive surgical management w/TLH,BSO for atypical endometrial hyerplasia persistent despite prior IUD. Patient has no significant medical or surgical risk factors. Discussed r/b/a of surgery in detail and informed consent was obtained. PLAN: 01/30 TLH,BSO Pre op labs ordered today Pito Groves MD Medical Decision Making: Problems: Moderate: New problem with uncertain prognosis Data: Unique test result(s) reviewed: 2 Unique test(s) ordered: 3+ Independent interpretation of test from other physician/QHCP Risk: Moderate: Decision on elective major surgery w/o risk factors Medical Decision Making Level: 4 - Moderate Communication back to the referring provider will be sent by way of fax or medical record. Tennille Dickson ([facility]) [address] [facility] [address] Referring Provider: TENNILLE DICKSON [[id number]] Allergies As of Date: 01/14/2023 (No Known Allergies) Date Reviewed: 01/14/2023 Reviewed by: Leyla Harris - Fully Assessed Reason for Visit: Consult [173] Primary Visit Diagnosis:Endometrial hyperplasia with atypia [N85.02] Order(s):OUTSIDE SURG PATH SLIDE REVIEW [[id number]] Order #: [id number] TYPE AND SCREEN,30 DAY [[id number]] Order #: [id number] FUTURE COMP METABOLIC PANEL [SQCMP] Order #: [id number] FUTURE CBC [SQCBC] Order #: [id number] FUTURE Follow-up and Disposition History for Encounter Date Provider Department Center 01/14/2023 [id number]-BAKEDIGN, MICHELL*[facility] [place] [facility] Prescriptions as of 01/14/2023 - GAVILYTE-G 236-22.74-6.74 -5.86 gram suspension DRINK 8OZ EVERY 15 MINUTES BY MOUTH AT 4PM THE DAY PRIOR TO COLONOSCOPY Problem List As Of Date: 01/14/2023 (None) Encounter Status:Closed by PITO GROVES on 01/14/23 Normal [facility] Comprehensive metabolic 2000 panelon 01-14-2023 Albumin [Mass/Vol] 4.5 g/dL Normal 3.9-4.9 [facility] Comment on above: Order Comment: Speci men Type: BLOOD SPECIMEN Ordering Facility: [facility] Address: [address] [place] [address] Performed By: #### 2 4323-8 #### [facility] CLIA [id number] [address] [place] [address] ALP [Catalytic activity/Vol] 77 U/L Normal 34-123 [facility] Comment on above: Order Comment: Speci men Type: BLOOD SPECIMEN Ordering Facility: [facility] Address: [address] [address] Performed By: #### 2 4323-8 #### [facility] CLIA [id number] [address] [place] [address] ALT [Catalytic activity/Vol] 16 U/L Normal 7-38 [facility] Comment on above: Order Comment: Speci men Type: BLOOD SPECIMEN Ordering Facility: [facility] Address: [address] [address] Performed By: #### 2 432-8 #### [facility] CLIA [id number] [address] [place] [address] Anion gap [Moles/Vol] 10 mmol/L Normal 9-18 [facility] Comment on above: Order Comment: Speci men Type: BLOOD SPECIMEN Ordering Facility: [facility] Address: [address] [address] Performed By: #### 2 432-8 #### [facility] CLIA [id number] [address] [place] [address] AST [Catalytic activity/Vol] 40 U/L High 13-35 [facility] Comment on above: Order Comment: Speci men Type: BLOOD SPECIMEN Ordering Facility: [facility] Address: [address] [address] Performed By: #### 2 4323-8 #### [facility] CLIA [id number] [address] [place] [address] Bilirubin [Mass/Vol] 0.7 mg/dL Normal 0.2-1.3 [facility] Comment on above: Order Comment: Speci men Type: BLOOD SPECIMEN Ordering Facility: [facility] Address: [address] [address] Performed By: #### 2 4323-8 #### [facility] CLIA [id number] [address] [place] [address] Calcium [Mass/Vol] 9.6 mg/dL Normal 8.5-10.2 [facility] Comment on above: Order Comment: Speci men Type: BLOOD SPECIMEN Ordering Facility: [facility] Address: [address] [place] [address] Performed By: #### 2 4323-8 #### [facility] CLIA [id number] [address] [place] [address] Chloride [Moles/Vol] 106 mmol/L High 97-105 [facility] Comment on above: Order Comment: Speci men Type: BLOOD SPECIMEN Ordering Facility: [facility] Address: [address] [address] Performed By: #### 2 4323-8 #### [facility] CLIA [id number] [address] [place] [address] CO2 [Moles/Vol] 24 mmol/L Normal 22-30 [facility] Comment on above: Order Comment: Speci men Type: BLOOD SPECIMEN Ordering Facility: [facility] Address: [address] [place] [address] Performed By: #### 2 4323-8 #### [facility] CLIA [id number] [address] [place] [address] Creatinine [Mass/Vol] 0.76 mg/dL Normal 0.58-0.96 [facility] Comment on above: Order Comment: Speci men Type: BLOOD SPECIMEN Ordering Facility: [facility] Address: [address] [place] [address] Performed By: #### 2 4323-8 #### [facility] CLIA [id number] [address] [place] [address] ESTIMATED GLOMERULAR FILTRATION RATE 87 mL/min/1.73m??? Normal >=60 [facility] Comment on above: Order Comment: Speci men Type: BLOOD SPECIMEN Ordering Facility: [facility] Address: [address] [place] [address] Result Comment: Lizeth mated Glomerular Filtration Rate (eGFR) is calculated using the 2020 CKD-EPI creatinine equation. This equation utilizes serum creatinine, sex, and age as parameters. The creatinine assay has traceable calibration to isotope dilution-mass spectrometry. Refer to KDIGO guidelines for clinical interpretation. In patients with unstable renal function, e.g. those with acute kidney injury, the eGFR may not accurately reflect actual GFR. Performed By: #### 2 4323-8 #### [facility] CLIA [id number] [address] [place] [address] Glucose [Mass/Vol] 92 mg/dL Normal 74-99 [facility] Comment on above: Order Comment: Speci men Type: BLOOD SPECIMEN Ordering Facility: [facility] Address: [address] [place] [address] Result Comment: The [place] Diabetes Association (ADA) provides guidance for cutoff values for fasting glucose and random glucose. The ADA defines fasting as no caloric intake for at least 8 hours. Fasting plasma glucose results between 100 to 125 mg/dL indicate increased risk for diabetes (prediabetes). Fasting plasma glucose results greater than or equal to 126 mg/dL meet the criteria for diagnosis of diabetes. In the absence of unequivocal hyperglycemia, results should be confirmed by repeat testing. In a patient with classic symptoms of hyperglycemia or hyperglycemic crisis, random plasma glucose results greater than or equal to 200 mg/dL meet the criteria for diagnosis of diabetes. Reference: Standards of Medical Care in Diabetes 2016, [place] [employer]. Diabetes Care. 2016.39(Suppl 1). Performed By: #### 2 4323-8 #### [facility] CLIA [id number] [address] [place] [address] Potassium [Moles/Vol] 4.4 mmol/L Normal 3.7-5.1 [facility] Comment on above: Order Comment: Speci men Type: BLOOD SPECIMEN Ordering Facility: [facility] Address: [address] [place] [address] Performed By: #### 2 4323-8 #### [facility] CLIA [id number] [address] [place] [address] Protein [Mass/Vol] 7.4 g/dL Normal 6.3-8.0 [facility] Comment on above: Order Comment: Speci men Type: BLOOD SPECIMEN Ordering Facility: [facility] Address: [address] [address] Performed By: #### 2 4323-8 #### [facility] CLIA [id number] [address] [place] [address] Sodium [Moles/Vol] 140 mmol/L Normal 136-144 [facility] Comment on above: Order Comment: Speci men Type: BLOOD SPECIMEN Ordering Facility: [facility] Address: [address] [address] Performed By: #### 2 [id number] #### [facility] CLIA [id number] [address] [place], [place] [id number] Urea nitrogen [Mass/Vol] 11 mg/dL Normal 7-21 [facility] Comment on above: Order Comment: Speci men Type: BLOOD SPECIMEN Ordering Facility: [facility] Address: [address] [address] Performed By: #### 2 4323-8 #### [facility] CLIA [id number] [address] [place] [address] TYPE AND SCREEN,30 DAYon ABO A Normal [facility] Comment on above: Order Comment: Speci men Type: BLOOD SPECIMEN Ordering Facility: [facility] Address: [address] [address] Performed By: #### T SCR30 #### [facility] CLIA [id number] [address] [place] [address] [place] HISTORICAL AB SCR STATUS Negative Normal [facility] Comment on above: Order Comment: Speci men Type: BLOOD SPECIMEN Ordering Facility: [facility] Address: [address] Performed By: #### T SCR30 #### [facility] CLIA [id number] [address] [place] [address] [place] Rh Nom (Bld) Positive Normal [facility] Comment on above: Order Comment: Speci men Type: BLOOD SPECIMEN Ordering Facility: [facility] Address: [address] [place], [place] [address] Performed By: #### T SCR30 #### [facility] CLIA [id number] [address] [facility] [id number] [address] [place] CT Abdomen/Pelvis w/o Contra ston 12-29-2022 CT Abdomen/Pelvis w/o Contrast HISTORY: Pain under the right breast radiating laterally. No recent injury or trauma. TECHNIQUE: Non-IV contrast imaging of the abdomen and pelvis was performed using standard technique, scanning from just above the dome of the diaphragm to the symphysis pubis. Unenhanced imaging is limited for the evaluation of some intra-abdominal and pelvic pathology. All CT scans at this facility use dose modulation, iterative reconstruction, and/or weight based dosing when appropriate to reduce radiation dose to as low as reasonably achievable. COMPARISON: None. RESULT: Abdomen / Pelvis: Liver: Hepatic steatosis. No focal liver lesion. Biliary: Gallbladder unremarkable. Pancreas: Unremarkable. Spleen: No splenomegaly. Adrenals: No mass. Kidneys: 3 mm left upper pole calculus and 3 mm left interpolar calculus. No hydronephrosis. No suspicious lesions in the unenhanced kidneys. GI Tract: Small hiatal hernia. No bowel dilation. Normal appendix. Diverticulosis without evidence for diverticulitis. Lymph Nodes: No lymphadenopathy. Mesentery/peritoneum/r etroperitoneum: No loculated collection. No ascites. Mild ill-defined mesenteric stranding (tamar mesentery), overall nonspecific. This is associated with numerous etiologies/as mesenteric panniculitis, infectious/inflammator y processes, idiopathic, etc. Vasculature: Mild to moderate arterial atherosclerotic disease without aneurysm. Pelvis: Bladder decompressed. Uterus grossly unremarkable. No significant free fluid. Bones/Soft Tissues: No acute osseous findings. Degenerative changes. Lower thorax: Bibasilar atelectasis/scarring. IMPRESSION: Small nonobstructing left renal calculi. Hepatic steatosis. Nonspecific tamar mesentery as discussed. Report reported and signed by Tarik Vera on 12/30/2022 1108 Normal [facility] SCREENING MAMMOGRAM W/GIL, BILATERAL*on 12-10-2022 SCREENING MAMMOGRAM W/GIL, BILATERAL* CLINICAL HISTORY: Screening Mammogram COMPARISON: Priors dating back to 2010. TECHNIQUE: 2D and 3D mammogram imaging of both breasts was performed. RESULT: DENSITY: There are scattered areas of fibroglandular density. There is no suspicious mass, asymmetry, architectural distortion, or calcification. No significant change since the prior mammograms. Biopsy clip right breast, unchanged. Stable asymmetries and changes from prior breast reduction. IMPRESSION: BIRADS 2 : BENIGN FINDINGS, NORMAL INTERVAL FOLLOW UP. FOLLOW-UP: 12 months DENSITY: Scattered MAMMOGRAPHY IS VERY IMPORTANT TO YOUR HEALTH. THE CURRENT [place] [employer] GUIDELINES RECOMMENDS ANNUAL MAMMOGRAPHY BEGINNING AT AGE 42 THIS FACILITY USES A REMINDER SYSTEM TO ENSURE ALL PATIENTS RECEIVE REMINDER NOTIFICATIONS AT THE APPROPRIATE TIME BASED ON THE RECOMMENDATIONS OF THIS EXAM. Board Certified Radiologist. Accredited by the ACR and FDA. Report reported and signed by Tarik Vera on 12/10/2022 1505 Normal [facility] Vital Signs Date Time Vital Sign Value Performing Clinician Facility 06-15-2024 10:40-0400 Blood Pressure Location Debra BELL [facility] 06-15-2024 10:40-0400 Diastolic blood pressure 88 mm[Hg] Debra BELL [facility] 06-15-2024 10:40-0400 Heart rate 80 /min Debra BELL [facility] 06-15-2024 10:40-0400 Respiratory rate 16 /min Debra BELL [facility] 06-15-2024 10:40-0400 Systolic blood pressure 142 mm[Hg] Debra BELL [facility] 06-03-2024 10:45-0400 Body height 168.9 cm Shelia Cameron DO Work Phone: [facility] 06-03-2024 10:45-0400 Body mass index (BMI) [Ratio] 33.86 kg/m2 Shelia Kaftan DO Work Phone: [facility] 06-03-2024 10:45-0400 Body temperature 97.59 [degF] Shelia Cameron DO Work Phone: [facility] 06-03-2024 10:45-0400 Body weight 96.62 kg Shelia Cameron DO Work Phone: [facility] 06-03-2024 10:45-0400 Diastolic blood pressure 72 mm[Hg] Shelia Cameron DO Work Phone: [facility] 06-03-2024 10:45-0400 Heart rate 87 /min Shelia Cameron DO Work Phone: [facility] 06-03-2024 10:45-0400 SaO2% (BldA) [Mass fraction] 98 % Shelia Cameron DO Work Phone: [facility] 06-03-2024 10:45-0400 Systolic blood pressure 120 mm[Hg] Shelia Cameron DO Work Phone: [facility] 03-29-2024 11:34-0400 Body temperature 98.6 [degF] Debra BELL [facility] 03-29-2024 11:34-0400 Diastolic blood pressure 84 mm[Hg] Debra BELL [facility] 03-29-2024 11:34-0400 Heart rate 71 /min Debra BELL [facility] 03-29-2024 11:34-0400 Respiratory rate 16 /min Debra BELL [facility] 03-29-2024 11:34-0400 Systolic blood pressure 125 mm[Hg] Debra BELL [facility] 03-09-2024 10:37-0400 Body temperature 98.6 [degF] Sarah Galea [facility] 03-09-2024 10:37-0400 Diastolic blood pressure 84 mm[Hg] Sarah Galea [facility] 03-09-2024 10:37-0400 Heart rate 71 /min Sarah Galea [facility] 03-09-2024 10:37-0400 Respiratory rate 16 /min Sarah Galea [facility] 03-09-2024 10:37-0400 Systolic blood pressure 135 mm[Hg] Sarah Galea [facility] 03-11-2023 10:36-0400 Body temperature 97.59 [degF] Pito Groves MD Work Phone: [facility] 03-11-2023 10:36-0400 Body weight 101.24 kg Pito Groves MD Work Phone: [facility] 03-11-2023 10:36-0400 Diastolic blood pressure 77 mm[Hg] Pito Groves MD Work Phone: [facility] 03-11-2023 10:36-0400 Heart rate 76 /min Pito Groves MD Work Phone: [facility] 03-11-2023 10:36-0400 Respiratory rate 18 /min Pito Groves MD Work Phone: [facility] 03-11-2023 10:36-0400 SaO2% (BldA) [Mass fraction] 98 % Pito Groves MD Work Phone: [facility] 03-11-2023 10:36-0400 Systolic blood pressure 155 mm[Hg] Pito Groves MD Work Phone: [facility] 02-18-2023 14:06-0400 Body height 170.2 cm Pito Groves MD Work Phone: [facility] 02-18-2023 14:06-0400 Body temperature 97.11 [degF] Pito Groves MD Work Phone: [facility] 02-18-2023 14:06-0400 Body weight 99.34 kg Pito Groves MD Work Phone: [facility] 02-18-2023 14:06-0400 Diastolic blood pressure 75 mm[Hg] Pito Groves MD Work Phone: [facility] 02-18-2023 14:06-0400 Heart rate 85 /min Pito Groves MD Work Phone: [facility] 02-18-2023 14:06-0400 Respiratory rate 18 /min Pito Groves MD Work Phone: [facility] 02-18-2023 14:06-0400 SaO2% (BldA) [Mass fraction] 98 % Pito Groves MD Work Phone: [facility] 02-18-2023 14:06-0400 Systolic blood pressure 142 mm[Hg] Pito Groves MD Work Phone: [facility] Encounters Encounter Date Encounter Type Care Provider Facility Start: 03-22-2025 ambulatory Debra Casoni ty:[facility] Start: 06-15-2024 End: 06-15-2024 Clinisync Result Encounter Generic External Data Provider [facility] Unsolicited Start: 06-15-2024 End: 06-15-2024 Clinisync Result Encounter Generic External Data Provider [facility] External [facility] Unsolicited Start: 06-15-2024 End: 06-15-2024 Patient encounter procedure Sarah Rivera [facility] Start: 06-15-2024 End: 06-15-2024 ambulatory Debra BELL Facility:[id number] Start: 06-15-2024 End: 06-15-2024 Patient encounter procedure Debra BELL [facility] Start: 06-09-2024 End: 06-09-2024 ambulatory SHELIA CAMERON Not Available Start: 06-03-2024 End: 06-03-2024 Bamboo flowsheet Shelia Cameron DO Work Phone: [facility] Start: 06-03-2024 End: 06-03-2024 Bamboo flowsheet Shelia Cameron DO Work Phone: [facility] Start: 06-03-2024 End: 06-03-2024 Office outpatient visit 25 minutes Shelia Chriss Cameron DO Work Phone: [facility] Comment on above: Abdominal discomfort (Primary Dx); Kidney stones; Gastroesophageal reflux disease with esophagitis without hemorrhage; Hematuria, unspecified type; Acute reaction to situational stress Start: 06-03-2024 End: 06-03-2024 ambulatory SHELIA CAMERON Not Available Start: 05-20-2024 End: 05-20-2024 Patient encounter procedure PA-Brandon Maradiaga Work Phone: [facility] [place] Work Phone: Start: 05-20-2024 End: 05-20-2024 ambulatory PA-C Renetta Maradiaga Work Phone: [facility] Work Phone: Start: 05-16-2024 End: 05-16-2024 Patient encounter procedure PA-Brandon Maradiaga Work Phone: [facility] [place] Work Phone: Start: 05-16-2024 End: 05-16-2024 ambulatory PA-C Renetta Maradiaga Work Phone: [facility] Work Phone: Start: 04-04-2024 ambulatory Debra BELL Facili ty:[facility] Start: 03-29-2024 End: 03-29-2024 Patient encounter procedure Derba BELL [facility] Start: 03-29-2024 End: 03-29-2024 ambulatory Debra BELL Facility:[facility] Start: 03-09-2024 End: 03-09-2024 Lab Drop off Sarah J Galea [facility] Start: 03-09-2024 ambulatory Sarah J Galea Facility :[facility] Start: 03-09-2024 End: 03-09-2024 Patient encounter procedure Sarah J Galea [facility] Start: 03-07-2024 End: 03-07-2024 ambulatory DEBRA BELL Not Available Start: 02-05-2024 End: 02-05-2024 ambulatory PENJACEK DICKOSN Not Available Start: 12-08-2023 End: 12-08-2023 ambulatory PENJACEK DICKSON Not Available Start: 12-02-2023 End: 12-02-2023 ambulatory RENETTA MARADIAGA Not Available Start: 11-11-2023 End: 11-11-2023 ambulatory Debra BELL Facility:[facility] Start: 11-11-2023 End: 11-11-2023 Patient encounter procedure Debra BELL [facility] Start: 11-09-2023 End: 11-09-2023 ambulatory Debra Bell Facility:[facility] Start: 11-02-2023 ambulatory Sarahkajal Rivera Facility:[facility] Start: 10-30-2023 End: 10-31-2023 Emergency department patient visit Renetta Maradiaga Facility:[facility] Start: 03-11-2023 End: 03-11-2023 ambulatory PITO GROVES Facility:[facility] Start: 03-11-2023 End: 03-11-2023 ambulatory Pito Groves MD Work Phone: [facility]cology Oncology Comment on above: Post-operative state [Z98.890] (Primary Dx) Start: 03-11-2023 End: 03-11-2023 Patient encounter procedure Pito Groves MD Work Phone: [facility] Start: 02-18-2023 End: 02-18-2023 ambulatory Pito Groves MD Work Phone: Gynecology Oncology Comment on above: Endometrial hyperpla pankaj [N85.00 (ICD-10-CM)] (Primary Dx); Post-operative state [Z98.890 (ICD-10-CM)] Start: 02-18-2023 End: 02-18-2023 Patient encounter procedure Pito Groves MD Work Phone: [facility] Start: 02-02-2023 Telephone encounter Rashmi Valiente RN Gy necology Comment on above: Post Op Call Start: 01-30-2023 End: 01-30-2023 ambulatory RENETTA MARADIAGA Facility:[facility] Start: 01-28-2023 Telephone encounter Jose Manuel Willard RN Gynecology Comment on above: Pre-Op Teaching Start: 01-19-2023 End: 01-19-2023 ambulatory RENETTA Barrera HIREN Facility:[facility] Start: 01-14-2023 End: 01-14-2023 ambulatory PITO GROVES Facility:[facility] Procedures Date Procedure Procedure Detail Performing Clinician Start: 06-15-2024 ALL CBC WITH AUTO DIFF Generic External Data Provider Start: 03-29-2024 Cystoscopy Debra DELGADO Start: 02-05-2024 Mammography Shelia booker DO Work Phone: Start: 01-22-2023 Colonoscopy Shelia booker DO Work Phone: Start: 01-14-2023 Antibody screen TENNILLE DICKSON Comment on above: Order Comment: Speci men Type: BLOOD SPECIMEN Ordering Facility: [facility] Address: [address] [place] [id number] Performed By: #### T SCR30 #### [facility] BLOOD BANK [facility] [id number] [address] [place] [address] Start: 12-10-2022 Mammography Pito granados MD Work Phone: Colonoscopy Sarah Rivera Hysterectomy Sarah Rivera Plan of Treatment Date Care Activity Detail Author Start: 01-22-2033 Screening for malign ant neoplasm of colon [facility] Start: 12-11-2027 LIPID SCREEN LIPID SCREEN [facility] Start: 01-14-2026 DIABETES SCREEN DIABETES SCREEN [facility] Start: 02-06-2025 End: 02-06-2025 Professional / ancillary services management 02/06/2025 3:00 PM EDT Ancillary Procedure [facility] [address] [place] [phone] [facility] Start: 02-06-2025 End: 02-06-2025 Patient encounter procedure 02/06/2025 1:45 PM EDT Office Visit [facility] [address] [place] [phone] Tennille Dickson MD [address] [place] [address] [facility] Start: 02-04-2025 Screening for malign ant neoplasm of breast Mammogram [facility] Start: 12-01-2024 Medicare Annual Wellness (AWV) Medicare Annual Wellness (AWV) [facility] Start: 06-03-2024 End: 06-03-2025 Amylase [Enzymatic activity/volume] in Serum or Plasma Amylase Lab Routine Abdominal discomfort Expected: 06/03/2024 (Approximate), Expires: 06/03/2025 [facility] Comment on above: Expected: 06/03/2024 (Approximate), Expires: 06/03/2025 Start: 06-03-2024 End: 06-03-2025 CBC W Auto Differential panel - Blood CBC and differential Lab Routine Kidney stones Abdominal discomfort Gastroesophageal reflux disease with esophagitis without hemorrhage Hematuria, unspecified type Expected: 06/03/2024 (Approximate), Expires: 06/03/2025 [facility] Work Phone: Comment on above: Expected: 06/03/2024 (Approximate), Expires: 06/03/2025 Start: 06-03-2024 End: 06-03-2025 Comprehensive metabolic 2000 panel - Serum or Plasma Comprehensive metabolic panel Lab Routine Abdominal discomfort Expected: 06/03/2024 (Approximate), Expires: 06/03/2025 [facility] Comment on above: Expected: 06/03/2024 (Approximate), Expires: 06/03/2025 Start: 06-03-2024 End: 06-03-2025 CT Abdomen and Pelvis WO contrast CT abdomen pelvis wo IV contrast Imaging Routine Kidney stones Abdominal discomfort Hematuria, unspecified type Expected: 06/03/2024, Expires: 06/03/2025 [facility] Comment on above: Expected: 06/03/2024 , Expires: 06/03/2025 Start: 06-03-2024 End: 06-03-2025 Urinalysis complete panel - Urine Urinalysis with reflex microscopic Lab Routine Kidney stones Abdominal discomfort Hematuria, unspecified type Expected: 06/03/2024 (Approximate), Expires: 06/03/2025 [facility] Comment on above: Expected: 06/03/2024 (Approximate), Expires: 06/03/2025 Start: 06-03-2024 End: 06-03-2024 Patient encounter procedure 06/03/2024 10:40 AM EDT Office Visit [facility] [address] [place] [address] Shelia Cameron DO [address] [place] [address] Arrived [facility] Comment on above: Arrived Start: 05-20-2024 [facility] Start: 05-01-2024 Influenza vaccination Influenza Vacc ine (#1) [facility] Start: 12-11-2023 Mammography MAMMOGRAM [facility] Start: 05-01-2023 Influenza vaccination [facility] Start: 08-31-2022 ADVANCE DIRECTIVE DISCUSSION ADVANCE DIRECTIVE DISCUSSION [facility] Start: 08-31-2022 DEPRESSION ASSESSMENT DEPRESSION ASS ESSMENT [facility] Start: 2022 BONE DENSITY BONE DENSITY [facility] Start: 2022 Pneumococcal Vaccine : 65+ Years (1 of 1 - PCV) Pneumococcal Vaccine: 65+ Years (1 of 1 - PCV) [facility] Start: 2022 PNEUMOCOCCAL: 65+ (1 - PCV) PNEUMOCOCCAL: 65+ (1 - PCV) [facility] Start: 06-26-2021 COVID-19 VACCINE (3 - Booster for Pfizer series) COVID-19 VACCINE (3 - Booster for Pfizer series) [facility] Start: 06-26-2021 COVID-19 VACCINE (3 - Pfizer series) COVID-19 VACCINE (3 - Pfizer series) [facility] Start: 2007 SHINGRIX VACCINE (1 of 2) SHINGRIX VACCINE (1 of 2) [facility] Start: 2002 COLOGUARD (FIT-DNA) COLOGUARD (FIT-D NA) [facility] Start: 2002 Colonoscopy COLONOSCOPY [facility] Start: 2002 COLORECTAL CANCER SCREENING COLORECTAL CANCER SCREENING [facility] Start: [address] COLONOGRAPHY [facility] Start: 2002 FECAL OCCULT BLOOD FECAL OCCULT BLOO D [facility] Start: 2002 SIGMOIDOSCOPY SIGMOIDOSCOPY [facility] Start: 1997 Mammography MAMMOGRAM [facility] Start: 02-01-1976 Urine microalbumin profile DTAP,TDAP,TD (1 - Tdap) [facility] Start: 1975 HEPATITIS C SCREENING HEPATITIS C SC REENING [facility] Start: 1975 HIV SCREENING HIV SCREENING [facility] Start: 1957 COVID-19 VACCINE (#1) COVID-19 VACCI NE (#1) [facility] Start: 1957 Screening for malign ant neoplasm of colon [facility] Calcium [Mass/time] in 24 hour Urine [facility] Calcium [Mass/volume ] in 24 hour Urine [facility] Magnesium [Mass/time ] in 24 hour Urine [facility] Magnesium [Mass/volu me] in Urine [facility] Phosphate [Mass/time ] in 24 hour Urine [facility] Phosphate [Mass/volu me] in Urine [facility] Urate [Mass/time] in 24 hour Urine [facility] Urate [Mass/volume] in Urine [facility] Immunizations Immunization Date Immunization Notes Care Provider Fa cility 05-01-2021 SARS-CoV-2 (COVID-19 ) mRNA BNT-162b2 vax Sarah Galea [facility] 04-10-2021 SARS-CoV-2 (COVID-19 ) mRNA BNT-162b2 vax Sarah Galea [facility] Payers Date Payer Category Payer Self-pay [id number] 2023 Unknown [id number] 2023 Private Health Insurance [facility] [place] [address] [id number] 2022 Medicare [id number] 2022 Unknown [id number] [id number] .[id number] 2022 Medicare [id number] 1.13.159 .[id number] 2022 Medicare [id number] 1957 Unknown [id number] 2.16.840.1.402572.3.579 .2.1259 1957 Unknown [id number] 2.16.840.1.617157.3.579 .2.1258 1957 Unknown [id number] 2.16.840.1.218418.3.579 .2.1258 1957 Unknown [id number] 2.16.840.1.267857.3.579 .2.1258 1957 Unknown [id number] 2.16.840.1.737496.3.579 .2.1258 1957 Unknown [id number] 2.16.840.1.107772.3.579 .2.1258 1957 Unknown [id number] 2.16.840.1.358255.3.579 .2.727 1957 Unknown [id number] 2.16.840.1.521760.3.579 .2.727 1957 Unknown [id number] 2.16.840.1.489454.3.579 .2.727 1957 Unknown [id number] 2.16.840.1.552384.3.579 .2.727 1957 Unknown [id number] 2.16.840.1.839005.3.579 .2.72 1957 Unknown [id number] 2.16.840.1.373057.3.579 .2.72 Unknown [place] / [id number] Unknown [id number] 2.16.840.1.035122.3.579 .2.531 Unknown [id number] 2.16.840.1.894053.3.579 .2.531 Unknown [id number] 2.16.840.1.368872.3.579 .2.531 Unknown [id number] 2.16.840.1.284290.3.579 .2.531 Social History Date Type Detail Facility Start: 01-14-2023 End: 06-03-2024 Tobacco smoking status NHIS Ex-smoker [facility] End: 08-31-2018 History of tobacco use Current smoker [facility] End: 08-31-2018 History of tobacco use Cigarette Smoker [facility] Start: 01-14-2023 End: 12-08-2023 Cigarettes smoked current (pack per day) - Reported 0.3 [facility] Start: 01-14-2023 End: 06-03-2024 Tobacco use and exposure Smokeless tobacco non-user [facility] Start: 01-19-2023 End: 06-03-2024 Alcohol intake Current drinker of alcohol (finding) [facility] Start: 01-19-2023 Alcohol Comment 1-2 monthly [facility] Start: 1955 Sex Assigned At Not on file [facility] Start: 03-11-2023 End: 12-08-2023 Tobacco use panel [facility] National Score (1-10 0), lower number is lower risk 64 [facility] Tobacco smoking status No Smokin g Status Entered [facility] Start: 1955 Sex Assigned At Female [facility] How often to you hav e a drink containing alcohol? Monthly or less [facility] How many standard drinks containing alcohol do you have on a typical day? 1 or 2 [facility] How often do you hav e 6 or more drinks on 1 occasion? Less than monthly [facility] Start: 11-12-2022 Gender identity Identifies as female gender (finding) [facility] Start: 02-13-2023 Sexual orientation Heterosexual (finding) [facility] Functional Status Date Assessment Result Facility 06-15-2024 Functional Status N/A [facility] 03-29-2024 Functional Status N/A [facility] 03-09-2024 Functional Status N/A [facility] Clinical Notes 12-10-2022 to 06-15-2024 Shelia Chriss ChristiansonsallyDO rustam - 06/03/2024 10:40 AM Pito Pack MD - 03/11/2023 10:30 AM Emy Groves MD - 02/18/2023 2:00 PM EDT Note Date & Type Note Facility 06-15-2024 Hospital Discharge instructions Patient Education 06/15/2024 11:37:43 Dietary Guidelines to Help Prevent Kidney Stones Dietary Guidelines to Help Prevent Kidney Stones Kidney stones are deposits of minerals and salts that form inside your kidneys. Your risk of developing kidney stones may be greater depending on your diet, your lifestyle, the medicines you take, and whether you have certain medical conditions. Most people can lower their risks of developing kidney stones by following these dietary guidelines. Your dietitian may give you more specific instructions depending on your overall health and the type of kidney stones you tend to develop. What are tips for following this plan? Reading food labels Choose foods with no salt added or low-salt labels. Limit your salt (sodium) intake to less than 1,500 mg a day. Choose foods with calcium for each meal and snack. Try to eat about 300 mg of calcium at each meal. Foods that contain 200 500 mg of calcium a serving include: ?8 oz (237 mL) of milk, kakfcrw-lyelmkiiweyu-wvqne milk, and calcium-fortifiedfruit juice. Calcium-fortified means that calcium has been added to these drinks. ?8 oz (237 mL) of kefir, yogurt, and soy yogurt. ?4 oz (114 g) of tofu. ?1 oz (28 g) of cheese. ?1 cup (150 g) of dried figs. ?1 cup (91 g) of cooked broccoli. ?One 3 oz (85 g) can of sardines or mackerel. Most people need 1,000 1,500 mg of calcium a day. Talk to your dietitian about how much calcium is recommended for you. Shopping Buy plenty of fresh fruits and vegetables. Most people do not need to avoid fruits and vegetables, even if these foods contain nutrients that may contribute to kidney stones. When shopping for convenience foods, choose: ?Whole pieces of fruit. ?Pre-made salads with dressing on the side. ?Low-fat fruit and yogurt smoothies. Avoid buying frozen meals or prepared deli foods. These can be high in sodium. Look for foods with live cultures, such as yogurt and kefir. Choose high-fiber grains, such as whole-wheat breads, oat bran, and wheat cereals. Cooking Do not add salt to food when cooking. Place a salt shaker on the table and allow each person to add their own salt to taste. Use vegetable protein, such as beans, textured vegetable protein (TVP), or tofu, instead of meat in pasta, casseroles, and soups. Meal planning Eat less salt, if told by your dietitian. To do this: ?Avoid eating processed or pre-made food. ?Avoid eating fast food. Eat less animal protein, including cheese, meat, poultry, or fish, if told by your dietitian. To do this: ?Limit the number of times you have meat, poultry, fish, or cheese each week. Eat a diet free of meat at least 2 days a week. ?Eat only one serving each day of meat, poultry, fish, or seafood. ?When you prepare animal proteins, cut pieces into small portion sizes. For most meat and fish, one serving is about the size of the palm of your hand. Eat at least five servings of fresh fruits and vegetables each day. To do this: ?Keep fruits and vegetables on hand for snacks. ?Eat one piece of fruit or a handful of berries with breakfast. ?Have a salad and fruit at lunch. ?Have two kinds of vegetables at dinner. You may be told to limit foods that are high in a substance called oxalate. These include: ?Spinach (cooked), rhubarb, beets, sweet potatoes, and Indian chard. ?Peanuts. ?Potato chips, qatari fries, and baked potatoes with skin on. ?Nuts and nut products. ?Chocolate. If you regularly take a diuretic medicine, make sure to eat at least 1 or 2 servings of fruits or vegetables that are high in potassium each day. These include: ?Avocado. ?Banana. ?Harrison, prune, carrot, or tomato juice. ?Baked potato. ?Cabbage. ?Beans and split peas. Lifestyle Drink enough fluid to keep your urine pale yellow. This is the most important thing you can do. Spread your fluid intake throughout the day. If you drink alcohol: ?Limit how much you have to: ?0 1 drink a day for women who are not . ?0 2 drinks a day for men. ?Know how much alcohol is in your drink. In the [place] one drink equals one 12 oz bottle of beer (355 mL), one 5 oz glass of wine (148 mL), or one 1 oz glass of hard liquor (44 mL). Lose weight if told by your health care provider. Work with your dietitian to find an eating plan and weight loss strategies that work best for you. General information Talk to your health care provider and dietitian about taking daily supplements. Depending on your health and the cause of your kidney stones, you may be told: ?Do not take high-dose supplements of vitamin C (1,000 mg a day or more). ?To take a calcium supplement. ?To take a daily probiotic supplement. ?To take other supplements such as magnesium, fish oil, or vitamin B6. Take ewlm-jwx-cpluvvs and prescription medicines only as told by your health care provider. These include supplements. What foods should I limit? Limit your intake of the following foods, or eat them as told by your dietitian. Vegetables Spinach. Rhubarb. Beets. Canned vegetables. Pickles. Olives. Baked potatoes with skin. Grains Wheat bran. Baked goods. Salted crackers. Cereals high in sugar. Meats and other proteins Nuts. Nut butters. Large portions of meat, poultry, or fish. Salted, precooked, or cured meats, such as sausages, meat loaves, and hot dogs. Dairy Cheeses. Beverages Regular soft drinks. Regular vegetable juice. Seasonings and condiments Seasoning blends with salt. Salad dressings. Soy sauce. Ketchup. Barbecue sauce. Other foods Canned soups. Canned pasta sauce. Casseroles. Pizza. Lasagna. Frozen meals. Potato chips. Slovak fries. The items listed above may not be a complete list of foods and beverages you should limit. Contact a dietitian for more information. What foods should I avoid? Talk to your dietitian about specific foods you should avoid based on the type of kidney stones you have and your overall health. Fruits Grapefruit. The item listed above may not be a complete list of foods and beverages you should avoid. Contact a dietitian for more information. Summary Kidney stones are deposits of minerals and salts that form inside your kidneys. You can lower your risk of kidney stones by making changes to your diet. The most important thing you can do is drink enough fluid. Drink enough fluid to keep your urine pale yellow. Talk to your dietitian about how much calcium you should have each day, and eat less salt and animal protein as told by your dietitian. This information is not intended to replace advice given to you by your health care provider. Make sure you discuss any questions you have with your health care provider. Document Revised: 11/27/2022 Document Reviewed: 11/27/2022 [employer] Patient Education 2023 [employer]. Follow Up Care 06/15/2024 10:14:43 With:STEPHANIE OLIVAS, Debra Banerjee, URL Address: [facility] [address] , [place] [id number]- When: Unknown [facility] 06-15-2024 Note Patient Education Nephrology Dietary Guidelines to Help Prevent Kidney Stones Kidney stones are deposits of minerals and salts that form inside your kidneys. Your risk of developing kidney stones may be greater depending on your diet, your lifestyle, the medicines you take, and whether you have certain medical conditions. Most people can lower their risks of developing kidney stones by following these dietary guidelines. Your dietitian may give you more specific instructions depending on your overall health and the type of kidney stones you tend to develop. What are tips for following this plan? Reading food labels ? Choose foods with no salt added or low-salt labels. Limit your salt (sodium) intake to less than 1,500 mg a day. ? Choose foods with calcium for each meal and snack. Try to eat about 300 mg of calcium at each meal. Foods that contain 200?500 mg of calcium a serving include: ? 8 oz (237 mL) of milk, fzcciam-bzioqggefrup-rtwbe milk, and calcium-fortifiedfruit juice. Calcium-fortified means that calcium has been added to these drinks. ? 8 oz (237 mL) of kefir, yogurt, and soy yogurt. ? 4 oz (114 g) of tofu. ? 1 oz (28 g) of cheese. ? 1 cup (150 g) of dried figs. ? 1 cup (91 g) of cooked broccoli. ? One 3 oz (85 g) can of sardines or mackerel. Most people need 1,000?1,500 mg of calcium a day. Talk to your dietitian about how much calcium is recommended for you. Shopping ? Buy plenty of fresh fruits and vegetables. Most people do not need to avoid fruits and vegetables, even if these foods contain nutrients that may contribute to kidney stones. ? When shopping for convenience foods, choose: ? Whole pieces of fruit. ? Pre-made salads with dressing on the side. ? Low-fat fruit and yogurt smoothies. ? Avoid buying frozen meals or prepared deli foods. These can be high in sodium. ? Look for foods with live cultures, such as yogurt and kefir. ? Choose high-fiber grains, such as whole-wheat breads, oat bran, and wheat cereals. Cooking ? Do not add salt to food when cooking. Place a salt shaker on the table and allow each person to add their own salt to taste. ? Use vegetable protein, such as beans, textured vegetable protein (TVP), or tofu, instead of meat in pasta, casseroles, and soups. Meal planning ? Eat less salt, if told by your dietitian. To do this: ? Avoid eating processed or pre-made food. ? Avoid eating fast food. ? Eat less animal protein, including cheese, meat, poultry, or fish, if told by your dietitian. To do this: ? Limit the number of times you have meat, poultry, fish, or cheese each week. Eat a diet free of meat at least 2 days a week. ? Eat only one serving each day of meat, poultry, fish, or seafood. ? When you prepare animal proteins, cut pieces into small portion sizes. For most meat and fish, one serving is about the size of the palm of your hand. ? Eat at least five servings of fresh fruits and vegetables each day. To do this: ? Keep fruits and vegetables on hand for snacks. ? Eat one piece of fruit or a handful of berries with breakfast. ? Have a salad and fruit at lunch. ? Have two kinds of vegetables at dinner. ? You may be told to limit foods that are high in a substance called oxalate. These include: ? Spinach (cooked), rhubarb, beets, sweet potatoes, and Indian chard. ? Peanuts. ? Potato chips, qatari fries, and baked potatoes with skin on. ? Nuts and nut products. ? Chocolate. ? If you regularly take a diuretic medicine, make sure to eat at least 1 or 2 servings of fruits or vegetables that are high in potassium each day. These include: ? Avocado. ? Banana. ? Harrison, prune, carrot, or tomato juice. ? Baked potato. ? Cabbage. ? Beans and split peas. Lifestyle ? Drink enough fluid to keep your urine pale yellow. This is the most important thing you can do. Spread your fluid intake throughout the day. ? If you drink alcohol: ? Limit how much you have to: ? 0?1 drink a day for women who are not . ? 0?2 drinks a day for men. ? Know how much alcohol is in your drink. In the [place] one drink equals one 12 oz bottle of beer (355 mL), one 5 oz glass of wine (148 mL), or one 1? oz glass of hard liquor (44 mL). ? Lose weight if told by your health care provider. Work with your dietitian to find an eating plan and weight loss strategies that work best for you. General information ? Talk to your health care provider and dietitian about taking daily supplements. Depending on your health and the cause of your kidney stones, you may be told: ? Do not take high-dose supplements of vitamin C (1,000 mg a day or more). ? To take a calcium supplement. ? To take a daily probiotic supplement. ? To take other supplements such as magnesium, fish oil, or vitamin B6. ? Take ubjk-eno-iumdfbz and prescription medicines only as told by your health care provider. These include suppleme (more content not included)... [facility] 06-03-2024 History of Present illness Narrative SUBJECTIVE: Arely Manuel is a 69 y.o. female presents with chief complaint of No chief complaint on file. Pt presents to discuss IBS symptoms. She notes that she has constipation, diarrhea, bloating, gas, back pain, cramping. Pt notes that this is now on a pretty consistent basis and is now affecting her life. OTC treatment includes Pepto. She would like to discuss what could cause this, what kind of foods or drinks that could be causing this. Review of Systems: Review of Systems Problem List: Patient Active Problem List Diagnosis Psoriasis (CMS/HCC) Endometrial hyperplasia with atypia Kidney stones Past Medical History: Past Medical History: Diagnosis Date Kidney stone Neuropathy Family History: Family History Problem Relation Name Age of Onset Endometrial cancer Other Daughter cancer came back, has hyst, has spread. Allergies: No Known Allergies Surgical History: Past Surgical History: Procedure Laterality Date BREAST SURGERY COLONOSCOPY DILATION AND CURETTAGE OF UTERUS HYSTERECTOMY STOMACH SURGERY Social History: Social Determinants of Health Tobacco Use: Medium Risk (06/03/2024) Patient History Smoking Tobacco Use: Former Smokeless Tobacco Use: Never Passive Exposure: Not on file Alcohol Use: Not At Risk (12/08/2023) AUDIT-C Frequency of Alcohol Consumption: Monthly or less Average Number of Drinks: 1 or 2 Frequency of Binge Drinking: Less than monthly Financial Resource Strain: Not on file Food Insecurity: Not on file Transportation Needs: Not on file Physical Activity: Not on file Stress: Not on file Social Connections: Not on file Intimate Partner Violence: Not on file Depression: Not at risk (12/08/2023) PHQ-2 PHQ-2 Score: 0 Housing Stability: Not on file Health Literacy: Not on file OBJECTIVE: Visit Vitals LMP (LMP Unknown) OB Status Hysterectomy Smoking Status Former Physical Exam Constitutional: Appearance: Normal appearance. HENT: Head: Normocephalic and atraumatic. Eyes: Extraocular Movements: Extraocular movements intact. Conjunctiva/sclera: Conjunctivae normal. Pupils: Pupils are equal, round, and reactive to light. Cardiovascular: Rate and Rhythm: Normal rate and regular rhythm. Pulmonary: Effort: Pulmonary effort is normal. Breath sounds: Normal breath sounds. Abdominal: General: Bowel sounds are normal. Palpations: Abdomen is soft. Musculoskeletal: General: Normal range of motion. Skin: General: Skin is warm and dry. Neurological: General: No focal deficit present. Mental Status: She is alert and oriented to person, place, and time. Psychiatric: Mood and Affect: Mood normal. Thought Content: Thought content normal. Judgment: Judgment normal. No results found for this or any previous visit (from the past 672 hour(s)). ASSESSMENT AND PLAN: Assessment/Plan Diagnoses and all orders for this visit: Abdominal discomfort Patient advised to return if symptoms worsen and/or persist despite treatment.Labs ordered today, will follow up when results available - CBC and differential; Future - Comprehensive metabolic panel; Future - Amylase; Future - Urinalysis with reflex microscopic; Future - dicyclomine (Bentyl) 20 MG tablet; Take 1 tablet (20 mg) by mouth 4 (four) times a day as needed (abdominal discomfort or cramps) - CT abdomen pelvis wo IV contrast; Future Kidney stones Problem is stable, will continue with current treatment plan. Call or return to clinic if any changes occur. Has fu with urology - CBC and differential; Future - Urinalysis with reflex microscopic; Future - CT abdomen pelvis wo IV contrast; Future Gastroesophageal reflux disease with esophagitis without hemorrhage Patient advised to return if symptoms worsen and/or persist despite treatment. - CBC and differential; Future - famotidine (Pepcid) 40 MG tablet; Take 1 tablet (40 mg) by mouth Daily Hematuria, unspecified type - CBC and differential; Future - Urinalysis with reflex microscopic; Future - CT abdomen pelvis wo IV contrast; Future Acute situational stress Did recommend counselling approach as pt became tearful taliking about issues family is having with health. Advised that may be causing some of her physical symptoms as well Updated Medications: I have reviewed and reconciled the history and medication list with the patient today. No current outpatient medications on file. documented in this encounter [facility] 03-29-2024 Hospital Discharge instructions Patient Education 03/29/2024 11:46:42 Hematuria, Adult Hematuria, Adult Hematuria is blood in the urine. Blood may be visible in the urine, or it may be identified with a test. This condition can be caused by infections of the bladder, urethra, kidney, or prostate. Other possible causes include: Kidney stones. Cancer of the urinary tract. Too much calcium in the urine. Conditions that are passed from parent to child (inherited conditions). Exercise that requires a lot of energy. Infections can usually be treated with medicine, and a kidney stone usually will pass through your urine. If neither of these is the cause of your hematuria, more tests may be needed to identify the cause of your symptoms. It is very important to tell your health care provider about any blood in your urine, even if it is painless or the blood stops without treatment. Blood in the urine, when it happens and then stops and then happens again, can be a symptom of a very serious condition, including cancer. There is no pain in the initial stages of many urinary cancers. Follow these instructions at home: Medicines Take bojm-qxs-ifqpsyn and prescription medicines only as told by your health care provider. If you were prescribed an antibiotic medicine, take it as told by your health care provider. Do not stop taking the antibiotic even if you start to feel better. Eating and drinking Drink enough fluid to keep your urine pale yellow. It is recommended that you drink 3 4 quarts (2.8 3.8 L) a day. If you have been diagnosed with an infection, drinking cranberry juice in addition to large amounts of water is recommended. Avoid caffeine, tea, and carbonated beverages. These tend to irritate the bladder. Avoid alcohol because it may irritate the prostate (in males). General instructions If you have been diagnosed with a kidney stone, follow your health care provider's instructions about straining your urine to catch the stone. Empty your bladder often. Avoid holding urine for long periods of time. If you are female: ?After a bowel movement, wipe from front to back and use each piece of toilet paper only once. ?Empty your bladder before and after sex. Pay attention to any changes in your symptoms. Tell your health care provider about any changes or any new symptoms. It is up to you to get the results of any tests. Ask your health care provider, or the department that is doing the test, when your results will be ready. Keep all follow-up visits. This is important. Contact a health care provider if: You develop back pain. You have a fever or chills. You have nausea or vomiting. Your symptoms do not improve after 3 days. Your symptoms get worse. Get help right away if: You develop severe vomiting and are unable to take medicine without vomiting. You develop severe pain in your back or abdomen even though you are taking medicine. You pass a large amount of blood in your urine. You pass blood clots in your urine. You feel very weak or like you might faint. You faint. Summary Hematuria is blood in the urine. It has many possible causes. It is very important that you tell your health care provider about any blood in your urine, even if it is painless or the blood stops without treatment. Take nlie-viv-pdfsuts and prescription medicines only as told by your health care provider. Drink enough fluid to keep your urine pale yellow. This information is not intended to replace advice given to you by your health care provider. Make sure you discuss any questions you have with your health care provider. Document Revised: 04/17/2021 Document Reviewed: 04/17/2021 [employer] Patient Education 2022 [employer]. Follow Up Care 03/28/2024 13:59:13 With:Miguel CHILDERS, Sarah Pat, URL Address: When: Unknown [facility] 03-29-2024 Note Patient Education Urology Hematuria, Adult Hematuria is blood in the urine. Blood may be visible in the urine, or it may be identified with a test. This condition can be caused by infections of the bladder, urethra, kidney, or prostate. Other possible causes include: ? Kidney stones. ? Cancer of the urinary tract. ? Too much calcium in the urine. ? Conditions that are passed from parent to child (inherited conditions). ? Exercise that requires a lot of energy. Infections can usually be treated with medicine, and a kidney stone usually will pass through your urine. If neither of these is the cause of your hematuria, more tests may be needed to identify the cause of your symptoms. It is very important to tell your health care provider about any blood in your urine, even if it is painless or the blood stops without treatment. Blood in the urine, when it happens and then stops and then happens again, can be a symptom of a very serious condition, including cancer. There is no pain in the initial stages of many urinary cancers. Follow these instructions at home: Medicines ? Take nqqu-hdl-dnusods and prescription medicines only as told by your health care provider. ? If you were prescribed an antibiotic medicine, take it as told by your health care provider. Do not stop taking the antibiotic even if you start to feel better. Eating and drinking ? Drink enough fluid to keep your urine pale yellow. It is recommended that you drink 3?4 quarts (2.8?3.8 L) a day. If you have been diagnosed with an infection, drinking cranberry juice in addition to large amounts of water is recommended. ? Avoid caffeine, tea, and carbonated beverages. These tend to irritate the bladder. ? Avoid alcohol because it may irritate the prostate (in males). General instructions ? If you have been diagnosed with a kidney stone, follow your health care provider's instructions about straining your urine to catch the stone. ? Empty your bladder often. Avoid holding urine for long periods of time. ? If you are female: ? After a bowel movement, wipe from front to back and use each piece of toilet paper only once. ? Empty your bladder before and after sex. ? Pay attention to any changes in your symptoms. Tell your health care provider about any changes or any new symptoms. ? It is up to you to get the results of any tests. Ask your health care provider, or the department that is doing the test, when your results will be ready. ? Keep all follow-up visits. This is important. Contact a health care provider if: ? You develop back pain. ? You have a fever or chills. ? You have nausea or vomiting. ? Your symptoms do not improve after 3 days. ? Your symptoms get worse. Get help right away if: ? You develop severe vomiting and are unable to take medicine without vomiting. ? You develop severe pain in your back or abdomen even though you are taking medicine. ? You pass a large amount of blood in your urine. ? You pass blood clots in your urine. ? You feel very weak or like you might faint. ? You faint. Summary ? Hematuria is blood in the urine. It has many possible causes. ? It is very important that you tell your health care provider about any blood in your urine, even if it is painless or the blood stops without treatment. ? Take vbwn-uqp-nsxtayq and prescription medicines only as told by your health care provider. ? Drink enough fluid to keep your urine pale yellow. This information is not intended to replace advice given to you by your health care provider. Make sure you discuss any questions you have with your health care provider. Document Revised: 04/17/2021 Document Reviewed: 04/17/2021 [employer] Patient Education ? 2022 [employer]. [facility] 03-09-2024 Evaluation + Plan note Diagnostic Tests PendingUrine Cytology ([facility]) 03/09/24 [facility] 03-09-2024 Hospital Discharge instructions Patient Education 03/09/2024 11:49:26 Urinary Incontinence Urinary Incontinence Urinary incontinence refers to a condition in which a person is unable to control where and when to pass urine. A person with this condition will urinate involuntarily. This means that the person urinates when he or she does not mean to. What are the causes? This condition may be caused by: Medicines. Infections. Constipation. Overactive bladder muscles. Weak bladder muscles. Weak pelvic floor muscles. These muscles provide support for the bladder, intestine, and, in women, the uterus. Enlarged prostate in men. The prostate is a gland near the bladder. When it gets too big, it can pinch the urethra. With the urethra blocked, the bladder can weaken and lose the ability to empty properly. Surgery. Emotional factors, such as anxiety, stress, or post-traumatic stress disorder (PTSD). Spinal cord injury, nerve injury, or other neurological conditions. Pelvic organ prolapse. This happens in women when organs move out of place and into the vagina. This movement can prevent the bladder and urethra from working properly. What increases the risk? The following factors may make you more likely to develop this condition: Age. The older you are, the higher the risk. Obesity. Being physically inactive. and childbirth. Menopause. Diseases that affect the nerves or spinal cord. Long-term, or chronic, coughing. This can increase pressure on the bladder and pelvic floor muscles. What are the signs or symptoms? Symptoms may vary depending on the type of urinary incontinence you have. They include: A sudden urge to urinate, and passing urine involuntarily before you can get to a bathroom (urge incontinence). Suddenly passing urine when doing activities that force urine to pass, such as coughing, laughing, exercising, or sneezing (stress incontinence). Needing to urinate often but urinating only a small amount, or constantly dribbling urine (overflow incontinence). Urinating because you cannot get to the bathroom in time due to a physical disability, such as arthritis or injury, or due to a communication or thinking problem, such as Alzheimer's disease (functional incontinence). How is this diagnosed? This condition may be diagnosed based on: Your medical history. A physical exam. Tests, such as: ?Urine tests. ?X-rays of your kidney and bladder. ?Ultrasound. ?CT scan. ?Cystoscopy. In this procedure, a health care provider inserts a tube with a light and camera (cystoscope) through the urethra and into the bladder to check for problems. ?Urodynamic testing. These tests assess how well the bladder, urethra, and sphincter can store and release urine. There are different types of urodynamic tests, and they vary depending on what the test is measuring. To help diagnose your condition, your health care provider may recommend that you keep a log of when you urinate and how much you urinate. How is this treated? Treatment for this condition depends on the type of incontinence that you have and its cause. Treatment may include: Lifestyle changes, such as: ?Quitting smoking. ?Maintaining a healthy weight. ?Staying active. Try to get 150 minutes of moderate-intensity exercise every week. Ask your health care provider which activities are safe for you. ?Eating a healthy diet. ?Avoid high-fat foods, like fried foods. ?Avoid refined carbohydrates like white bread and white rice. ?Limit how much alcohol and caffeine you drink. ?Increase your fiber intake. Healthy sources of fiber include beans, whole grains, and fresh fruits and vegetables. Behavioral changes, such as: ?Pelvic floor muscle exercises. ?Bladder training, such as lengthening the amount of time between bathroom breaks, or using the bathroom at regular intervals. ?Using techniques to suppress bladder urges. This can include distraction techniques or controlled breathing exercises. Medicines, such as: ?Medicines to relax the bladder muscles and prevent bladder spasms. ?Medicines to help slow or prevent the growth of a man's prostate. ?Botox injections. These can help relax the bladder muscles. Treatments, such as: ?Using pulses of electricity to help change bladder reflexes (electrical nerve stimulation). ?For women, using a biomedical engineering internship to prevent urine leaks. This is a small, tampon-like, disposable device that is inserted into the urethra. ?Injecting collagen or carbon beads (bulking agents) into the urinary sphincter. These can help thicken tissue and close the bladder opening. ?Surgery. Follow these instructions at home: Lifestyle Limit alcohol and caffeine. These can fill your bladder quickly and irritate it. Keep yourself clean to help prevent odors and skin damage. Ask your health care provider about special skin creams and cleansers that can protect the skin from urine. Consider wearing pads or adult diapers. Make sure to change them regularly, and always change them right after experiencing incontinence. General instructions Take mepm-kva-hnytwxi and prescription medicines only as told by your health care provider. Use the bathroom about every 3 4 hours, even if you do not feel the need to urinate. Try to empty your bladder completely every time. After urinating, wait a minute. Then try to urinate again. Make sure you are in a relaxed position while urinating. If your incontinence is caused by nerve problems, keep a log of the medicines you take and the times you go to the bathroom. Keep all follow-up visits. This is important. Where to find more information National [place] [employer] and Digestive and Kidney Diseases: www.niddk.nih.gov [employer]: www.urologyhealth.org Contact a health care provider if: You have pain that gets worse. Your incontinence gets worse. Get help right away if: You have a fever or chills. You are unable to urinate. You have redness in your groin area or down your legs. Summary Urinary incontinence refers to a condition in which a person is unable to control where and when to pass urine. This condition may be caused by medicines, infection, weak bladder muscles, weak pelvic floor muscles, enlargement of the prostate (in men), or surgery. Factors such as older age, obesity, and childbirth, menopause, neurological diseases, and chronic coughing may increase your risk for developing this condition. Types of urinary incontinence include urge incontinence, stress incontinence, overflow incontinence, and functional incontinence. This condition is usually treated first with lifestyle and behavioral changes, such as quitting smoking, eating a healthier diet, and doing regular pelvic floor exercises. Other treatment options include medicines, bulking agents, medical devices, electrical nerve stimulation, or surgery. This information is not intended to replace advice given to you by your health care provider. Make sure you discuss any questions you have with your health care provider. Document Revised: 03/22/2021 Document Reviewed: 03/22/2021 [employer] Patient Education 2022 [employer]. Follow Up Care 03/02/2024 14:46:10 With:STEPHANIE OLIVAS, Debra Banerjee, URL Address: [address] [place] [address]- When: Unknown Comments:our fermentologist will be calling to schedule cystoscopy [facility] 03-11-2023 Note HNO ID: [id number] Author: Pito Groves MD Service: ? 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 Previous biopsy in 2019 showed endometrial hyperplasia without atypia. Biopsy completed on 12/25/22 did demonstrate endometrial hyperplasia with atypia. Arely presents to local truck driver onc for further evaluation/hysterectomy discussion. 01/30/2023 Surgery: Total laparoscopic hysterectomy with bilateral salpingo-oophorectomy for uterus <250g DATE OF LAST VISIT: 01/14/2023 OBSTETRIC/ GYNECOLOGY HISTORY: Gynecologic surgery: None Last Pap: 10/3022 PAST MEDICAL HISTORY Diagnosis Date Endometrial hyperplasia IUD 0521-7173 Fibromyalgia PAST SURGICAL HISTORY Procedure Laterality Date ABDOMINOPLASTY N/A HYSTEROSCOPY BX W/WO DANDC PT ED PLASTIC SURGERY Bilateral breast- no implant Family History Problem Relation Age of Onset Anesthesia Problems No Family History RECENT PATHOLOGY 01/30/2023 FINAL DIAGNOSIS A. Uterus, cervix, bilateral fallopian tubes and bilateral ovaries, hysterectomy and bilateral salpingo-oophorectomy: -Cervix: Nabothian cysts -Endometrium: Focal atypical hyperplasia, see comment -Myometrium: Leiomyomata and adenomyosis -Bilateral fallopian tubes: Paratubal cysts -Bilateral ovaries: Epithelial inclusion cysts, and endometriosis in right ovary 12/25/22 RECENT IMAGING: Date: Pelvic US 12/10/22 Date: CT A/P 12/29/22 Subjective: Patient feeling well post op - denies pain or bleeding, improved constipation, denies urinary issues. Having some intermittent RUQ pain - recently had CT from PCP which was negative for gallbladder issues and showed small kidney stone. Objective: BP 155/77 Pulse 76 Temp 36.4 ?C (97.6 ?F) (Temporal) Resp 18 Wt 101.2 kg (223 lb 3.2 oz) SpO2 98% BMI 34.95 kg/m? Abdomen soft NTND ASSESSMENT: 67 year old y/o female presenting with endometrial hyperplasia with atypia now s/p TLH, BSO on 01/30/23- patient doing well post op. Path reviewed showing residual hyerplasia, no evidence of invasive cancer. Cleared for normal activity. PLAN: No further local truck driver onc follow up needed Pito Groves MD [facility] 03-11-2023 History of Present illness Narrative Images from the original note were not included. 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 Previous biopsy in 2019 showed endometrial hyperplasia without atypia. Biopsy completed on 12/25/22 did demonstrate endometrial hyperplasia with atypia. Arely presents to local truck driver onc for further evaluation/hysterectomy discussion. 01/30/2023 Surgery: Total laparoscopic hysterectomy with bilateral salpingo-oophorectomy for uterus <250g DATE OF LAST VISIT: 01/14/2023 OBSTETRIC/ GYNECOLOGY HISTORY: Gynecologic surgery: None Last Pap: 10/3022 PAST MEDICAL HISTORY Diagnosis Date Endometrial hyperplasia IUD [id number] Fibromyalgia PAST SURGICAL HISTORY Procedure Laterality Date ABDOMINOPLASTY N/A HYSTEROSCOPY BX W/WO D&C PT ED PLASTIC SURGERY Bilateral breast- no implant Family History Problem Relation Age of Onset Anesthesia Problems No Family History RECENT PATHOLOGY 01/30/2023 FINAL DIAGNOSIS A. Uterus, cervix, bilateral fallopian tubes and bilateral ovaries, hysterectomy and bilateral salpingo-oophorectomy: -Cervix: Nabothian cysts -Endometrium: Focal atypical hyperplasia, see comment -Myometrium: Leiomyomata and adenomyosis -Bilateral fallopian tubes: Paratubal cysts -Bilateral ovaries: Epithelial inclusion cysts, and endometriosis in right ovary 12/25/22 RECENT IMAGING: Date: Pelvic US 12/10/22 Date: CT A/P 12/29/22 Subjective: Patient feeling well post op - denies pain or bleeding, improved constipation, denies urinary issues. Having some intermittent RUQ pain - recently had CT from PCP which was negative for gallbladder issues and showed small kidney stone. Objective: BP 155/77 Pulse 76 Temp 36.4 C (97.6 F) (Temporal) Resp 18 Wt 101.2 kg (223 lb 3.2 oz) SpO2 98% BMI 34.95 kg/m Abdomen soft NTND ASSESSMENT: 67 year old y/o female presenting with endometrial hyperplasia with atypia now s/p TLH, BSO on 01/30/23- patient doing well post op. Path reviewed showing residual hyerplasia, no evidence of invasive cancer. Cleared for normal activity. PLAN: No further local truck driver onc follow up needed Pito Groves MD documented in this encounter [facility] 02-18-2023 Note HNO ID: [id number] Author: Pito Groves MD Service: ? 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 Previous biopsy in 2019 showed endometrial hyperplasia without atypia. Biopsy completed on 12/25/22 did demonstrate endometrial hyperplasia with atypia. Arely presents to local truck driver onc for further evaluation/hysterectomy discussion. 01/30/2023 Surgery: Total laparoscopic hysterectomy with bilateral salpingo-oophorectomy for uterus <250g DATE OF LAST VISIT: 01/14/2023 OBSTETRIC/ GYNECOLOGY HISTORY: Gynecologic surgery: None Last Pap: 10/3022 PAST MEDICAL HISTORY Diagnosis Date Endometrial hyperplasia IUD [id number] Fibromyalgia PAST SURGICAL HISTORY Procedure Laterality Date ABDOMINOPLASTY N/A HYSTEROSCOPY BX W/WO DANDC PT ED PLASTIC SURGERY Bilateral breast- no implant Family History Problem Relation Age of Onset Anesthesia Problems No Family History RECENT PATHOLOGY 01/30/2023 FINAL DIAGNOSIS A. Uterus, cervix, bilateral fallopian tubes and bilateral ovaries, hysterectomy and bilateral salpingo-oophorectomy: -Cervix: Nabothian cysts -Endometrium: Focal atypical hyperplasia, see comment -Myometrium: Leiomyomata and adenomyosis -Bilateral fallopian tubes: Paratubal cysts -Bilateral ovaries: Epithelial inclusion cysts, and endometriosis in right ovary 12/25/22 RECENT IMAGING: Date: Pelvic US 12/10/22 Date: CT A/P 12/29/22 SUBJECTIVE/INTERVAL HISTORY: Arely Manuel has been doing well since surgery. Pain well controlled. Patient states she has been fatigued since surgery. No bleeding or drainage. Having constipation - taking colace but no improvement plans to start metamucil. OBJECTIVE: VITALS: BP 142/75 Pulse 85 Temp (Src) 97.1 (Temporal) Resp 18 Ht 5' 7.008 (1.70m) Wt 219 lb (99.3kg) SpO2 98% BMI 34.29 kg/(m2). GENERAL: alert, oriented, pleasant, and cooperative. HEENT: Normocephalic, atraumatic, and no lesions. ABDOMEN: Abdomen soft, non-tender, laparoscopic incisions healing well ASSESSMENT: 67 year old y/o female presenting with endometrial hyperplasia with atypia now s/p TLH, BSO on 01/30/23- patient doing well post op. Path reviewed showing residual hyerplasia, no evidence of invasive cancer. Post op restrictions reviewed PLAN: Follow up for 6 week post op visit as scheduled Pito Groves MD Communication back to the referring provider will be sent by way of fax or medical record. Tennille Dickson (Irina) [address] [facility] [id number] [facility] 02-18-2023 History of Present illness Narrative Images from the original note were not included. 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 Previous biopsy in 2019 showed endometrial hyperplasia without atypia. Biopsy completed on 12/25/22 did demonstrate endometrial hyperplasia with atypia. Arely presents to local truck driver onc for further evaluation/hysterectomy discussion. 01/30/2023 Surgery: Total laparoscopic hysterectomy with bilateral salpingo-oophorectomy for uterus <250g DATE OF LAST VISIT: 01/14/2023 OBSTETRIC/ GYNECOLOGY HISTORY: Gynecologic surgery: None Last Pap: 10/3022 PAST MEDICAL HISTORY Diagnosis Date Endometrial hyperplasia IUD [id number] Fibromyalgia PAST SURGICAL HISTORY Procedure Laterality Date ABDOMINOPLASTY N/A HYSTEROSCOPY BX W/WO D&C PT ED PLASTIC SURGERY Bilateral breast- no implant Family History Problem Relation Age of Onset Anesthesia Problems No Family History RECENT PATHOLOGY 01/30/2023 FINAL DIAGNOSIS A. Uterus, cervix, bilateral fallopian tubes and bilateral ovaries, hysterectomy and bilateral salpingo-oophorectomy: -Cervix: Nabothian cysts -Endometrium: Focal atypical hyperplasia, see comment -Myometrium: Leiomyomata and adenomyosis -Bilateral fallopian tubes: Paratubal cysts -Bilateral ovaries: Epithelial inclusion cysts, and endometriosis in right ovary 12/25/22 RECENT IMAGING: Date: Pelvic US 12/10/22 Date: CT A/P 12/29/22 SUBJECTIVE/INTERVAL HISTORY: Arely Manuel has been doing well since surgery. Pain well controlled. Patient states she has been fatigued since surgery. No bleeding or drainage. Having constipation - taking colace but no improvement plans to start metamucil. OBJECTIVE: VITALS: BP 142/75 Pulse 85 Temp (Src) 97.1 (Temporal) Resp 18 Ht 5' 7.008 (1.70m) Wt 219 lb (99.3kg) SpO2 98% BMI 34.29 kg/(m^2). GENERAL: alert, oriented, pleasant, and cooperative. HEENT: Normocephalic, atraumatic, and no lesions. ABDOMEN: Abdomen soft, non-tender, laparoscopic incisions healing well ASSESSMENT: 67 year old y/o female presenting with endometrial hyperplasia with atypia now s/p TLH, BSO on 01/30/23- patient doing well post op. Path reviewed showing residual hyerplasia, no evidence of invasive cancer. Post op restrictions reviewed PLAN: Follow up for 6 week post op visit as scheduled Pito Groves MD Communication back to the referring provider will be sent by way of fax or medical record. Tennille Dickson (Irina) [address] [place] [address] documented in this encounter [facility] 02-02-2023 Miscellaneous Notes Patient had Total laparoscopic hysterectomy with bilateral salpingo-oophorectomy for uterus <250g February 02, 2023 9:57 AM Patient called for post op follow up assessment. Reports she is doing OK Pain: Patient rates pain 5 on a scale of 0-10. 0 being no pain and 10 being worst pain imaginable. Patient states pain is tolerable. Diet: Patient is able tolerate fluids and normal diet. Bowel Movement: Patient is able to pass gas and has had a small bowel movement. She will try Miralax and MOM if needed Voiding: Patient is able to void without difficulty Vaginal Discharge: Denies any vaginal bleeding Skin Incision: Denies drainage, redness, or signs of infection. - adhesive present: Yes Medication: Denies questions or concerns about medication. Post op restrictions reviewed with patient including - activity- no heavy lifting, on pelvic rest - keep incision clean and dry. Ok to use mild antibacterial soap. - reviewed signs and symptoms to notify office including signs of infection, fever, heavy vaginal bleeding. - she is aware of post op appointment with Doctor Groves on 02/18/23 Patient verbalized understanding and denies further questions at this time. Understands to call the office with further concerns/questions. Survivorship treatment summary initiated: Path in process Rashmi Valiente RN documented in this encounter [facility] 01-30-2023 Note HNO ID: [id number] Author: Ilan Alcantar Service: ? Author Type: ? Type: Plan of Care Filed: 01/30/2023 1:28 PM Note Text: PHARMACY BEDSIDE DELIVERY SERVICE Patient Name: Arely Manuel The marked outpatient medications were filled at [facility] pharmacy and picked up at the pharmacy by the pt daughter ivonne Medication List START taking these medications acetaminophen 500 mg tablet Commonly known as: TYLENOL EXTRA STRENGTH Take 2 tablets by mouth every 6 hours as needed for pain. docusate sodium 100 mg capsule Commonly known as: COLACE Take 1 capsule by mouth twice daily. ibuprofen 600 mg tablet Commonly known as: MOTRIN Take 1 tablet by mouth every 8 hours as needed for pain. oxyCODONE IR 5 mg immediate release tablet Commonly known as: ROXICODONE Take 1 tablet by mouth every 8 hours as needed for pain for up to 5 days. STOP taking these medications GAVILYTE-G [id number] -5.86 gram suspension Generic drug: peg 3350-Electrolytes Ilan [facility] PAGER: [phone] January 30, 2023 1:28 PM [facility] 01-30-2023 Note HNO ID: [id number] Author: Natalia Aldana APRN.RN PHYSICIAN OFFICE Service: Anesthesiology Author Type: Nurse Lead Ruby On Rails Developer Type: Anesthesia Procedure Notes Filed: 01/30/2023 11:14 AM Note Text: ANESTHESIOLOGY PROCEDURE NOTE PIV General Information Procedure Start Time/Medication Administration: 01/30/2023 10:52 AM Patient Location: OR Staffing Anesthesiologist: Arben Timmons MD Performed by: anesthesiologist Preparation Sterility Preparation: hand hygiene performed prior to procedure Site Prep: chlorhexidine Procedure Details Indication: need for IV access Needle Size/Type: 18 gauge angiocath Orientation: Right Location: Wrist Imaging Guidance Used: No SIGNATURE: Natalia Aldana APRN.RN PHYSICIAN OFFICE PATIENT NAME: Arely Manuel DATE: January 30, 2023 TIME: 11:13 AM CSN: [id number] [facility] 01-30-2023 Note HNO ID: [id number] Author: Natalia Aldana APRN.RN PHYSICIAN OFFICE Service: Anesthesiology Author Type: Nurse Lead Ruby On Rails Developer Type: Anesthesia Procedure Notes Filed: 01/30/2023 11:13 AM Note Text: ANESTHESIOLOGY PROCEDURE NOTE Airway General Information Procedure Start Time/Medication Administration: 01/30/2023 10:52 AM Patient location during procedure: OR 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, 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 Staffing Anesthesiologist: Arben Timmons MD RN PHYSICIAN OFFICE: Natalia Aldana APRN.RN PHYSICIAN OFFICE Performed by: AZEB Indications and Patient Condition Indications for airway management: anesthesia Preoxygenated: yes anesthesia circuit Method: asleep Difficult Mask: No Airway Accessory: oral airway Final Airway Details Final airway type: endotracheal airway Final Endotracheal Airway: ETT Cuffed: yes Successful intubation technique: direct laryngoscopy Devices used: intubating stylet Endotracheal tube insertion site: oral Blade: Sharon Blade size: #4 ETT size (mm): 7.5 Measured from: lips Measurement (cm): 22 Placement verified by: chest auscultation and capnometry Cormack-Lehane Classification: grade IIa - partial view of glottis Number of attempts at approach: 1 Airway not difficult SIGNATURE: Natalia Aldana APRN.CRNA PATIENT NAME: Arely Manuel DATE: January 30, 2023 TIME: 11:12 AM CSN: [id number] [facility] 01-28-2023 Miscellaneous Notes Pre-op teaching Procedure: [facility] Physician: Dr. Gorves Location: [facility]: [phone] Date & Time: 01/30/23 MEDICAL CLEARANCE: No CARDIAC CLEARANCE: No PRE ADMISSION TESTIN01/19/23 THE FOLLOWING WAS EVALUATED Motivation To Learn: Eager Family/Significant Other Support: High - Very involved in pt care Cognitive Ability: Alert and oriented Patient Learns Best By: Individual Instruction Written Instruction - Hand-outs Verbal Instruction The Following Influencing Factors Were Barriers To This Education Session: None The Following Physical Limitations Were Barriers To This Education Session: None Instruction Provided To: Patient MEDICATION INFORMATION ASPIRIN and ADVIL can make you more prone to bleeding after surgery. Please STOP taking these medications at least (5) days before and for (3) days after surgery or procedure. Some common medications that contain ASPIRIN or act like Aspirin are TO BE AVOIDED: This is a list of the medications you should avoid: Advill Celebrex Motrin Aggrenox Clinoril Naprosyn(naproxen) Agrylin NSAIDS Pepto-Bismol Aleve Ecotrin Persantine Alecia-Flint Excedrin Plaquenil Anacin Heparin Plavix Ascriptin Herbals Pletal Aspergum Ibuprofen Ticlid Lexi Indocin Trental Bextra Midol Vanquish Bufferin Gingko Biloba Vitamin E (MVI) MEDICATIONS YOU MAY SUBSTITUTE Anacin 3 Fioricet * Tylenol with codeine * Darvocet N 100 * Plenadol Percocet * Datril Sine-Aide Tylenol Excedrin PM (*Denotes prescription needed to obtain these medications) Learning Topic: Procedure/Surgery: Instructions reviewed for arrival time, parking and admission. Specific topics reviewed and discussed with all surgical patients include: No eating, drinking, or smoking after midnight prior to surgery. Medications as prescribed by anesthesia or the physician. Bowel Prep as indicated. Review of information contained in surgical packet Pre-operative and intra-operative general activities were reviewed including: Holding Area, assessments, surgical positioning, and Family Waiting Area. Written post-operative instructions were given to the patient regarding post-op activity, pain control, symptoms to report. Post-operative instructions provided and reviewed with patient/family: ACTIVITY - No heavy lifting (>5-10 lbs), no pushing/pulling, OK to climb stairs DRIVING - No driving while taking prescription pain medication, or within 24 hours of anesthesia, OK to ride in a car. DIET - Advance diet as tolerated and as ordered by MD, drink 8 glasses of water a day, eat a diet high in protein and fiber unless otherwise directed by MD. CATHETER - Will be inserted during surgery, you may go home with a catheter. If you go home with a catheter you will have to come back to the office for a voiding trial, UTI symptoms reviewed and patient instructed to notify MD of any of these symptoms. INCISION CARE - Keep incision clean and dry, karla to be removed 7-10 days after surgery, steristrips do not need to be removed by MD BATHING - OK to shower after surgery unless otherwise directed by MD, no tub baths. PAIN MEDICATION - IV pain medication after surgery, IV GROCERY SHOPPER if ordered by MD, discharged home with a prescription for PO pain medication, pain management after surgery, side effects of pain medication (including constipation, dizziness, drowsiness, and medication interactions). DVT PROPHYLAXIS - Early ambulation, SCDs, injectable anticoagulants (heparin, lovenox, etc) RESPIRATORY - Incentive spirometer, coughing/deep breathing exercises, ambulation. RETURN TO WORK - As directed by physician, please send any FMLA papers to physician's board of education secretary. SYMPTOMS TO NOTIFY MD - Fever, chills, nausea, vomiting, increased or severe pain, heavy vaginal bleeding, foul smelling vaginal drainage, pain or swelling in extremities. URGENT SYMPTOMS - Call 911 or go to ER if any shortness of breath, difficulty breathing, or chest pain. HOW TO CONTACT PHYSICIAN - Physician's office phone number given to patient, if after hours patient instructed to call sugar reprocess operator head and ask for the doctor director of business applications. Patient and family have phone number to call 24 hours/day. Patient Evaluation: Verbalizes understanding Patient and/or family express understanding of upcoming surgery and the operative process. Questions answered. Follow Up Plan: Follow up as needed Supplemental Material Given: Pre-operative teaching packet provided to the patient: INPATIENT/OUTPATIENT printed instructions; Post-operative instruction sheet, bowel prep instruction sheet For questions contact: office at [phone] Instructed By Jose Manuel Willard RN documented in this encounter [facility] 01-14-2023 Note HNO ID: [id number] Author: Pito Groves MD Service: ? Author Type: Physician Type: Progress Notes Filed: 01/14/2023 3:27 PM Note Text: DATE OF SERVICE: 01/14/2023 REASON FOR VISIT: Endometrial hyperplasia with atypia Consultation requested by Dr. Tennille Dickson. My final recommendations will be communicated back to the requesting physician by way of shared Medical record or letter to requesting physician via [place] mail. 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 Previous biopsy in 2019 showed endometrial hyperplasia without atypia. Biopsy completed on 12/25/22 did demonstrate endometrial hyperplasia with atypia. Arely presents to local truck driver onc for further evaluation/hysterectomy discussion. Feeling bloated, had some spotting after her recent biopsy. Was having flank pain and had CT scan which showed kidney stones but no lymphadenopathy or other abnormal findigs. DATE OF LAST VISIT: NA OBSTETRIC/ GYNECOLOGY HISTORY: Gynecologic surgery: None Last Pap: 10/3022 PAST MEDICAL HISTORY Diagnosis Date Endometrial hyperplasia IUD [id number] Fibromyalgia PAST SURGICAL HISTORY Procedure Laterality Date ABDOMINOPLASTY N/A HYSTEROSCOPY BX W/WO DANCT History reviewed. No pertinent family history. RECENT PATHOLOGY 12/25/22 RECENT IMAGING: Date: Pelvic US 12/10/22 Date: CT A/P 12/29/22 ECOG performance status ECOG PERFORMANCE STATUS: 0- Fully active, able to carry on all pre-disease performance w/o restriction. OBJECTIVE: VITALS: BP 163/86 Pulse 92 Temp (Src) 98 (Temporal) Resp 18 Wt 223 lb 6.4 oz (101.3kg) SpO2 98% GENERAL: alert, oriented, pleasant, and cooperative. HEENT: Normocephalic, atraumatic, and no lesions. HEART: Regular rate and rhythm, no murmurs. LUNGS: Clear to auscultation bilaterally. Good air exchange. ABDOMEN: Abdomen soft, non-tender, ASSESSMENT: 67 year old y/o female presenting with endometrial hyperplasia with atypia. I reviewed pathology report and images from recent CT scan 12/29 - showing small uterus with thickened endometrium. Reviewed pathology showing endometrial hyperplasia w/atypia, discussed up to 40% risk of underlying carcinoma. Discussed definitive surgical management w/TLH,BSO for atypical endometrial hyerplasia persistent despite prior IUD. Patient has no significant medical or surgical risk factors. Discussed r/b/a of surgery in detail and informed consent was obtained. PLAN: 01/30 TLH,BSO Pre op labs ordered today Pito Groves MD Medical Decision Making: Problems: Moderate: New problem with uncertain prognosis Data: Unique test result(s) reviewed: 2 Unique test(s) ordered: 3+ Independent interpretation of test from other physician/QHCP Risk: Moderate: Decision on elective major surgery w/o risk factors Medical Decision Making Level: 4 - Moderate Communication back to the referring provider will be sent by way of fax or medical record. Tennille Dickson (Irina) [address] [facility] [address] [facility] 12-10-2022 Note ABDOMINAL AORTA SCRE ENING ULTRASOUND HISTORY: Screening evaluation for abdominal aortic aneurysm. Family history of AAA. TECHNIQUE: Sonography of the abdominal aorta was performed. Images were obtained and stored in a permanent archive. 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 Follow up every 5 years *Follow up recommendations are according to the Society of Vascular Surgery. Report reported and signed by Tarik Vera on 12/11/2022 1523 [facility] Braided Band Assembler 12-10-2022 Note CLINICAL HISTORY: rachel ne density evaluation COMPARISON: as noted FINDINGS: Bone density measurements for the Left femoral neck are BMD 0.631g/cm2 Tscore -2.0 Age-matched Z score -0.4, Osteopenia Bone density measurements for the Right femoral neck are BMD 0.642g/cm2 Tscore 1.9 Age-matched Z score -0.3, Osteopenia Bone density measurements for the Lumbar spine are BMD 0.982g/cm2 Tscore -0.6 Age-matched Z score 1.2, Normal FRAX SCORE 10 year probability of fracture: Major osteoporotic, 18% Hip fracture, 1.6% IMPRESSION: The bone density measurements listed for the lumbar spine indicate NORMAL bone mass and places the patient at no significant risk for fracture. Recommend follow-up exam in 2 years, sooner as clinically necessary. The bone density measurements for the femoral necks indicate OSTEOPENIA and places the patient at a mild to moderate increased risk for fracture. There may be a future risk of developing osteoporosis. Recommend follow-up exam in one year, sooner if clinically necessary. Note World Health Organization definition of osteoporosis and osteopenia for women: Normal = T score at or above -1.0 SD Osteopenia = T score between -1.0 and -2.5 SD Osteoporosis = T score at or below -2.5 SD Report reported and signed by GAGANDEEP WALDROP on 12/11/2022 0947 [facility] Braided Band Assembler Evaluation + Plan note No data available for this section [facility] Evaluation + Plan note Future Appointments Appointment Date:06/15/2024 12:30:00 PM Scheduled Provider:Sarah Anglin Location:[facility] Appointment Type:URO Office Visit [facility] Evaluation + Plan note Future Appointments Appointment Date:03/22/2025 01:15:00 PM Scheduled Provider:Debra BELL MD Location:[facility] Appointment Type:URO Office Visit [facility] Evaluation + Plan note Future Appointments Appointment Date:03/22/2025 01:15:00 PM Scheduled Provider:Debra BELL MD Location:[facility] Appointment Type:URO Office Visit Diagnostic Tests PendingElectrolyte Panel 06/15/24 [facility] Evaluation note Diagnosis Endometrial hyperplasia [N85.00 (ICD-10-CM)]- Primary Endometrial hyperplasia, unspecified Post-operative state [Z98.890 (ICD-10-CM)] Other postprocedural status [facility] Diagnosis Post-operative state [Z98.890]- Primary Other postprocedural status [facility] noteNo assessment information availableLake[facility] Work Phone: Evaluation note* Diagnosis Abdominal discomfort- Primary Abdominal pain, unspecified site Kidney stones Calculus of kidney Gastroesophageal reflux disease with esophagitis without hemorrhage Hematuria, unspecified type Acute reaction to situational stress documented [facility] No data available for this section [facility] [employer] Progress note No data available for this section [facility] Summary Purpose Family History Relationship Condition Age at Onset Recorded Date/T luana father Malignant neoplasm Unknown grandparent Malignant neoplasm of ovary Unknown Malignant neoplasm Unknown mother Hypertension Unknown Advance Directives Advance Directive Response Recorded Date/ Time Advance Directives No May 10:44am Chief Complaint and Reason for Visit Chief Complaint KIDNEY STONES Chief Complaint KIDNEY STONES kidney stones Reason for Referral Specialty Diagnoses / Procedures Referred By Epi t Referred To Contact Radiology Diagnoses Kidney stones Abdominal discomfort Hematuria, unspecified type Procedures CT abdomen pelvis wo IV contrast Shelia Cameron R, DO [address] [place] [address] [place] [address] Referral ID Status Reason Start Date Expiration Date V isits Requested Visits Authorized [id number] Pending Review 06/03/2024 11/30/2024 1 1 Additional Source Comments INFORMATION SOURCE (unrecogn ized section and content) DATE CREATED AUTHOR 12/31/2022 [facility] Me dical Specialist DATE CREATED AUTHOR AUTHOR'S ORGANIZ ATION 02/11/2023 [facility] DATE CREATED AUTHOR AUTHOR'S ORGANIZ ATION 03/12/2023 [facility] DATE CREATED AUTHOR AUTHOR'S ORGANIZ ATION 03/04/2024 Lewis Vinayak [facility] ical [facility] DATE CREATED AUTHOR AUTHOR'S ORGANIZ ATION 05/29/2024 [facility] DATE CREATED AUTHOR AUTHOR'S ORGANIZ ATION 06/14/2024 [facility] dical Specialists EPIC DATE CREATED AUTHOR AUTHOR'S ORGANIZ ATION 06/17/2024 Nutley Robertson [facility] Source Comments (unrecognize d section and content) In the event this informatio n is protected by the Federal Confidentiality of Alcohol and Drug Abuse Patient Records regulations: The Federal rules restrict any use of the information to criminally investigate or prosecute any alcohol or drug abuse patient.[facility] the event this information is protected by the Federal Confidentiality of Alcohol and Drug Abuse Patient Records regulations: The Federal rules restrict any use of the information to criminally investigate or prosecute any alcohol or drug abuse patient.[facility] the event this information is protected by the Federal Confidentiality of Alcohol and Drug Abuse Patient Records regulations: The Federal rules restrict any use of the information to criminally investigate or prosecute any alcohol or drug abuse patient.[facility] the event this information is protected by the Federal Confidentiality of Alcohol and Drug Abuse Patient Records regulations: The Federal rules restrict any use of the information to criminally investigate or prosecute any alcohol or drug abuse patient.[facility] Reason for Visit (unrecogniz ed section and content) Reason Comments Pre-Op Teaching Reason Comments Post Op Call Reason Comments Endometrial hyperplasia with atypia Reason Comments endometrial cancer Follow up post Op Care Teams (unrecognized sec tion and content) Senior Materials Analyst Relationship Specialty Start Date End Date Renetta Maradiaga [address] [place] [address] PCP - General 01/14/23 Senior Materials Analyst Relationship Specialty Start Date End Date Renetta Maradiaga [address] [place] [address] PCP - General 01/14/23 Senior Materials Analyst Relationship Specialty Start Date End Date Renetta Maradiaga [address] [place] [address] PCP - General 01/14/23 Team Status: Active Member Role Status Dates Renetta Maradiaga PA-C Primary Care Provider Active Team Status: Inactive Member Role Status Dates Renetta Maradiaga PA-C Primary Care Provider Active Start: May 16, 2024 End: May 16, 2024 Debra Bell MD Attending Provider Active St art: May 16, 2024 End: May 16, 2024 Team Status: Inactive Member Role Status Dates Renetta Maradiaga PA-C Primary Care Provider Active Start: May 20, 2024 End: May 20, 2024 Debra Bell MD Attending Provider Active St art: May 20, 2024 End: May 20, 2024 Senior Materials Analyst Relationship Specialty Start Date End Date Shelia Cameron DO [address] [place] [address] PCP - General Family Medicine 01/06/23 Shelia Cameron DO [address] [place] [address] PCP - ACO Reach 10/30/23 Senior Materials Analyst Relationship Specialty Start Date End Date Sehlia Cameron DO [address] [place] [address] PCP - General Family Medicine 01/06/23 Shelia Cameron DO [address] [place] [address] PCP - ACO Reach 10/30/23 Senior Materials Analyst Relationship Specialty Start Date End Date Shelia Cameron DO [address] [place] [address] PCP - General Family Medicine 01/06/23 Shelia Cameron DO [address] [place] [address] PCP - ACO Reach 10/30/23 Goals (unrecognized section and content) Goals may be documented in a n alternate section FOR RECORDS PERTAINING TO PATIENTS WHO ARE OR HAVE BEEN ENROLLED IN A CHEMICAL DEPENDENCY/SUBSTANCEABUSE PROGRAM, SOME INFORMATION MAY BE OMITTED. This clinical summary was aggregated from multiple sources. Caution should be exercised in using it in the provision of clinical care. This summary normalizes information from multiple sources, and as a consequence, information in this document may materially change the coding, format and clinical context of patient data. In addition, data may be omitted in some cases. CLINICAL DECISIONS SHOULD BE BASED ON THE PRIMARY CLINICAL RECORDS. [facility] [employer] [facility]. provides no warranty or guarantee of the accuracy or completeness of information in this document.
[2024-06-18 14:58] VITALS: BP 126/76; PULSE 90; TEMP 36.7; O2SAT 95; BMI 33.2
--- NOTE | 2024-06-18 15:25 | ED_ITS ---
HPI HPI - General Adult General Chief complaint: Urogenital-Female Stated complaint: BURNING WITH URINATION, POST OP PAIN Time Seen by Provider: 06/18/24 15:14 Source: patient Mode of arrival: walk-in Limitations: no limitations History of Present Illness HPI narrative: Patient is a 69-year-old female who presents to the emergency department for burning with urination. She had a stent placed [address] Bell for a kidney stone. She has no significant flank or abdominal pain but states she has had urethral discomfort and burning with urination. She has seen occasional blood but has not had any significant valdo hematuria. No fevers or vomiting. She was prescribed Vesicare and Keflex at the time of her procedure, she states she has been taking both of those medications for the last 2 days but developed itching and was not sure which medication might be causing her to itch so she stopped taking both of them and has not taken them today. She has not had any lip swelling, tongue swelling or difficulty breathing. She reports urinary pressure and frequency. She states she has had UTIs in the past and this feels very similar. She states Dr. Bell office told her to take Azo [id number] which she has been doing for the last day without improvement. Related Data Home Medications ?Medication ?Instructions ?Recorded ?Confirmed famotidine 40 mg tablet 40 mg PO Q12H PRN acid reflux 06/15/24 06/15/24 hydrochlorothiazide 12.5 mg capsule 12.5 mg PO Q12H 06/15/24 06/15/24 multivitamin 1 tab PO DAILY 06/15/24 06/15/24 tamsulosin 0.4 mg capsule 0.4 mg PO 06/18/24 Previous Rx's ?Medication ?Instructions ?Recorded cephalexin 500 mg capsule 500 mg PO BID 7 days #14 caps 06/16/24 solifenacin 10 mg tablet (Vesicare) 10 mg PO DAILY #30 tabs 06/16/24 ciprofloxacin HCl 500 mg tablet 500 mg PO Q12H #14 tabs 06/18/24 ondansetron 4 mg disintegrating 4 mg PO Q6H PRN nausea and 06/18/24 tablet vomiting #12 tabs oxycodone-acetaminophen 5 mg-325 1 tab PO Q6H PRN pain 3 days #12 06/18/24 mg tablet (Percocet) tabs Allergies Allergy/AdvReac Type Severity Reaction Status Date / Time No Known Drug Allergies Allergy Verified 06/18/24 14:57 Opioid HPI Opioid Management Most Recent Opioid Data: Last Pain Scale 3 06/16/24 15:43 06/16/24 Last Pain Assessment 06/16/24 15:43 Review of Systems ROS Constitutional Denies: fever or chills Ears, nose, mouth, and throat Denies: throat pain Cardiovascular Denies: chest pain Respiratory Denies: shortness of breath Gastrointestinal Denies: abdominal pain, nausea or vomiting Genitourinary Reports: painful urination, urinary frequency, urinary urgency, blood in urine and pelvic pain Musculoskeletal Denies: back pain Neurological Denies: numbness in extremities or weakness in extremities Hematologic/Lymphatic Denies: easy bruising or easy bleeding PFSH PFSH Medical History (Updated 06/18/24 @ 15:40 by ANDREW Grajeda) Other urethral stricture, female ?N35.82 - Other urethral stricture, female (ICD-10) Hypercalciuria ?R82.994 - Hypercalciuria (ICD-10) Former smoker ?Z87.891 - Personal history of nicotine dependence (ICD-10) Elevated parathyroid hormone ?R79.89 - Other specified abnormal findings of blood chemistry (ICD-10) Diverticulitis ?K57.92 - Diverticulitis of intestine, part unspecified, without perforation or abscess without bleeding (ICD-10) Cystocele Hematuria ?R31.9 - Hematuria, unspecified (ICD-10) Flank pain ?R10.9 - Unspecified abdominal pain (ICD-10) Kidney stone ?N20.0 - Calculus of kidney (ICD-10) Surgical History (Updated 06/15/24 @ 14:43 by Blanquita Machado RN) H/O abdominoplasty ?Z98.890 - Other specified postprocedural states (ICD-10) H/O dilation and curettage ?Z98.890 - Other specified postprocedural states (ICD-10) H/O breast augmentation ?Z98.82 - Breast implant status (ICD-10) H/O: hysterectomy ?Z90.710 - Acquired absence of both cervix and uterus (ICD-10) Hx of colonoscopy ?Z98.890 - Other specified postprocedural states (ICD-10) H/O cystoscopy ?Z98.890 - Other specified postprocedural states (ICD-10) Family History (Updated 06/15/24 @ 13:44 by Blanquita Machado RN) Other Family history of hypertension Heart disease Kidney stones Social History Within the past year, how often did you have a drink containing alcohol: monthly or less Smoking status: Former smoker Second hand tobacco smoke exposure: No Non-prescribed substance use: denies use Previous occupational history: retired Highest level of school completed/degree received: high school graduate Little interest or pleasure in doing things: not at all Feeling down, depressed, or hopeless: not at all Exam Narrative Exam Narrative: Gen.: Awake, alert, in no distress Head: Normocephalic, atraumatic ENT: Moist mucous membranes Respiratory: No respiratory distress, lungs clear bilaterally Cardio: Regular rate and rhythm Gastrointestinal: Abdomen is soft, nondistended and nontender to palpation Back: No CVA or flank tenderness Extremities: Moves extremities equally Psych: Normal mood and affect Neuro: No focal neuro deficit Skin: Warm, dry, intact Constitutional Vital Signs, click to edit/add: Last Vital Signs Temp 98.1 F 06/18/24 14:58 Pulse 90 06/18/24 14:58 Resp 20 06/18/24 14:58 BP 126/76 06/18/24 14:58 Pulse Ox 95 06/18/24 14:58 O2 Del Method Room Air 06/18/24 14:58 Course Vital Signs Vital signs: Vital Signs Temperature 98.1 F 06/18/24 14:58 Pulse Rate 90 06/18/24 14:58 Respiratory Rate 20 06/18/24 14:58 Blood Pressure 126/76 06/18/24 14:58 Pulse Oximetry 95 06/18/24 14:58 Oxygen Delivery Method Room Air 06/18/24 14:58 Temperature 98.1 F 06/18/24 14:58 Pulse Rate 90 06/18/24 14:58 Respiratory Rate 20 06/18/24 14:58 Blood Pressure 126/76 06/18/24 14:58 Pulse Oximetry 95 06/18/24 14:58 Oxygen Delivery Method Room Air 06/18/24 14:58 Medical Decision Making MDM Narrative Medical decision making narrative: Patient treated with oxycodone in the emergency department, she has stable vital signs, no fevers or vomiting and no flank or back pain. At this time I do not suspect that her symptoms are a complication of her stent procedure, her urine specimen is consistent with urinary tract infection. Red blood cells noted in urine are likely secondary to the recent stent placement. Patient with no pain out of proportion in the emergency department. She was encouraged to stop both the Vesicare and the Keflex and she will be placed on Cipro, Pyridium, Zofran, short course of analgesics for home. Return to the ER if symptoms change or worsen follow closely with Dr. Bell office. SUPERVISED APC VISIT, PHYSICIAN ATTESTATION: Based on the medical record the care appears appropriate. ? Medical Records Medical records reviewed: Yes I reviewed the patient's medical records Lab Data Lab results reviewed: Yes I reviewed the patient's lab results Labs: Lab Results 06/18/24 Range/Units 15:22 Urine Color [place] A (YELLOW) Urine Clarity Clear (CLEAR) Urine pH Color interference A (5.0-9.0) Ur Specific [place] 1.030 A (1.005-1.025) Urine Protein Color interference A (NEG/TRACE) mg/dL Urine Glucose (UA) Color interference A (NEGATIVE) mg/dL Urine Ketones Color interference A (NEGATIVE) mg/dL Urine Occult Blood Color interference A (NEGATIVE) Urine Nitrite Color interference A (NEGATIVE) Urine Bilirubin Color interference A (NEGATIVE) Urine Urobilinogen Color interference A (0.2-1.0) EU/dL Ur Leukocyte Esterase Color interference A (NEGATIVE) Urine RBC >100 A (0-2) #/HPF Urine WBC 5-10 A (NONE SEEN) #/HPF Ur Squamous Epith Cells Few A (NONE/RARE) #/LPF Urine Crystals None seen (None Seen) #/HPF Urine Bacteria Trace A (NONE SEEN) #/HPF Urine Casts None seen (NONE SEEN) #/LPF Urine Mucus None seen (NONE SEEN) Ur Culture Indicated? Yes Discharge Plan Discharge Chief Complaint: Urogenital-Female Clinical Impression: Urinary tract infection Patient Disposition: Home, Self-Care Time of Disposition Decision: 15:40 Condition: Good Prescriptions / Home Meds: New ciprofloxacin HCl 500 mg tablet 500 mg PO Q12H Qty: 14 0RF oxycodone-acetaminophen [Percocet] 5-325 mg tablet 1 tab PO Q6H PRN (Reason: pain) 3 Days Qty: 12 0RF Rx Instructions: DX: N20.0 ondansetron 4 mg tablet,disintegrating 4 mg PO Q6H PRN (Reason: nausea and vomiting) Qty: 12 0RF No Action multivitamin Tablet 1 tab PO DAILY famotidine 40 mg tablet 40 mg PO Q12H PRN (Reason: acid reflux) hydrochlorothiazide 12.5 mg capsule 12.5 mg PO Q12H Rx Instructions: not starting until after procedure. cephalexin 500 mg capsule 500 mg PO BID 7 Days Qty: 14 0RF solifenacin [Vesicare] 10 mg tablet 10 mg PO DAILY Qty: 30 0RF tamsulosin 0.4 mg capsule 0.4 mg PO Print Language: [place] Instructions: Urinary Tract Infection in Women (ED) Additional Instructions: Follow up with Dr. Bell office Referrals: Yaya MCCLELLAN [Primary Care Provider] - 1 week
[2024-06-18 15:28] LABS: Clarity Urine CLEAR (CLEAR); Color Urine ORANGE (YELLOW)
[2024-06-18 15:29] LABS: Bilirubin Urine COLOR INTERFERENCE (NEGATIVE); Blood Urine COLOR INTERFERENCE (NEGATIVE); Glucose Urine UA COLOR INTERFERENCE mg/dL (NEGATIVE); Ketones Urine COLOR INTERFERENCE mg/dL (NEGATIVE); Leukocyte Esterase Urine COLOR INTERFERENCE (NEGATIVE); Nitrite Urine COLOR INTERFERENCE (NEGATIVE); Protein Urine COLOR INTERFERENCE mg/dL (NEG/TRACE); Urine Microscopic Indicated YES; Urobilinogen Urine COLOR INTERFERENCE EU/dL (0.2-1.0); pH Urine COLOR INTERFERENCE (5.0-9.0)
[2024-06-18 15:38] LABS: Bacteria Urine TRACE #/HPF (NONE SEEN); Cast Seen? NONE SEEN #/LPF (NONE SEEN); Crystals Seen? None Seen #/HPF (None Seen); Mucus Urine NONE SEEN (NONE SEEN); RBC Urine >100 #/HPF (0-2); Squamous Epithelial Cell Urine FEW #/LPF (NONE/RARE); Urine Culture Indicated YES
[2024-06-18] MEDS: OXYCODONE HCL/ACETAMINOPHEN 5MG/325MG 1 TAB PO (15:45)
[2024-06-18 15:53] VITALS: BP 132/89; PULSE 79; TEMP 36.8; O2SAT 94
== END 2024-06-18 15:56 | disposition home or self-care (01) ==
PROVIDERS: Physician Assistant; Emergency Provider Emergency Medicine; PCP Family Medicine
DX: N39.0 Urinary tract infection, site not specified (principal); Z87.442 Personal history of urinary calculi; Z87.891 Personal history of nicotine dependence
CPT/HCPCS: 81001; 87086; 99283

== ENCOUNTER 2024-07-04 07:51 | Day surgery (SDC) | payer MEDICARE, OTHER, SELFPAY ==
[2024-07-04] MEDS: LIDOCAINE 2% JELLY 10 ML UR (08:44)
--- NOTE | 2024-07-04 09:00 | P.URON_ITS ---
Urology Surgery Operative Note Operative Note Procedure Date: 07/04/24 Time Out Performed: yes Pre-op Diagnosis: Status post left ureteroscopic stone manipulation and stent placement Post-op Diagnosis: same as pre-op Procedures performed: 1. Cystoscopy. 2. Left stent removal. Anesthesia: local Primary Surgeon: Ron Bell Complications: None Estimated blood loss (mL): 0 Findings: None encrusted stent Specimens: None Drains: None Indications for Procedures: This lady had left renal calculi ablated with the thulium laser. She also had a stent placed at that time. She now presents for cystoscopy and left stent removal. She has signed an informed consent after risks were explained. Detailed description of Procedure: The patient was brought into the endoscopy suite and kept on her [facility] bed in the supine position. Timeout was done. Her legs were frog-legged and her perineum and genitalia were sterilely prepped and draped in the usual fashion. I started by passing a flexible cystoscope per urethra and into the bladder. The stent was not encrusted. A flexible grasping forceps was passed through the scope and the stent was grasped. The scope and stent were then removed without difficulty. She was then discharged to home. The plan is that she will start her hydrochlorothiazide today. She was reminded to get her electrolyte blood draw in a month. She will also dramatically increase her fluid intake. Follow-up will be as scheduled in 6 months.
[2024-07-04 09:02] VITALS: BP 156/76; BP 164/76; PULSE 74; PULSE 76; O2SAT 20
== END 2024-07-04 09:09 | disposition home or self-care (01) ==
PROVIDERS: PCP Family Medicine; Visit Provider Urology
PROC: (CPT 52310; principal; 2024-07-04 08:30)
DX: Z46.6 Encounter for fitting and adjustment of urinary device (principal); Z87.442 Personal history of urinary calculi
CPT/HCPCS: 52310

== ENCOUNTER 2024-07-05 14:48 | Outpatient (OUT) | payer MEDICARE, OTHER, SELFPAY | END 2024-07-05 14:49 | disposition home or self-care (01) | LOC: PST 14:48 | PROVIDERS: PCP Family Medicine; Visit Provider Urology | DX: Z01.818 Encounter for other preprocedural examination (principal); N20.0 Calculus of kidney; Z46.6 Encounter for fitting and adjustment of urinary device; K57.90 Diverticulosis of intestine, part unspecified, without perforation or abscess without bleeding ==